=== PATIENT | female | born 1970 | race Caucasian/White ===

== ENCOUNTER 2017-07-09 18:57 | Emergency (ER) | payer SELFPAY ==
[2017-07-09 19:45] VITALS: BP 130/90; TEMP 97.8; O2SAT 100
--- NOTE | 2017-07-09 19:50 | ED.PDOC ---
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 Timing/Duration: other - see hpi Severity: moderate Improving Factors: nothing Worsening Factors: nothing Associated Symptoms: other - see hpi Allergies/Adverse Reactions: Allergies NO KNOWN ALLERGY Allergy (Verified 07/09/17 19:45) Review of Systems - Review of Systems Constitutional: States: no symptoms reported, malaise EENTM: States: no symptoms reported Respiratory: States: no symptoms reported Cardiology: States: no symptoms reported Gastrointestinal/Abdominal: States: no symptoms reported Genitourinary: States: no symptoms reported Musculoskeletal: States: joint pain Skin: States: no symptoms reported Endocrine: States: see HPI Past Medical History (General) - Patient Medical History Hx Other PMH: Yes - Guillain Vichy syndrome Surgical History: other - hysterectomy Family Medical History - Family History Mother Family History: Unknown Physical Exam - Physical Exam General Appearance: Alert, Other - crying Eye Exam: bilateral normal Ears, Nose, Throat: hearing grossly normal, normal ENT inspection Neck: non-tender, full range of motion, supple Respiratory: chest non-tender, lungs clear, normal breath sounds Cardiovascular/Chest: normal peripheral pulses, regular rate, rhythm, no murmur Peripheral Pulses: radial,right: 2+, radial,left: 2+ Gastrointestinal/Abdominal: normal bowel sounds, non tender, soft Back Exam: no CVA tenderness, no vertebral tenderness Extremity: no pedal edema, no calf tenderness Neurologic: motor weakness - left side Skin Exam: normal color, warm/dry Progress - Progress Progress: 07/09/17 20:15 Vital Signs - 8 hr 07/09/17 19:40 Temperature 97.8 F Pulse Rate [ 102 H Right] Respiratory 16 Rate Blood Pressure 130/90 [Left Arm] O2 Sat by Pulse 100 Oximetry 07/09/17 20:15 Nurse talk to daughter in law stated that her sons car broke down unable to bring her to [place] but daughter stated she contacted the rural transport that medicare pays to bring her to her pain specialist Md in [place] but she have not arrange it yet.I told patient that we could not refill prescription in the ER for her pain medication.Recommended [facility] evaluation for CRU in [place] but declined and walked out. Departure - Departure Clinical Impression: Family history of Guillain-Vichy syndrome, Chronic pain disorder, Has run out of medications Time of Disposition: 20:22 Disposition: Left Against Medical Advice Condition: Fair Departure Forms: ED Discharge - Pt. Copy, Patient Portal Self Enrollment Referrals: SHAY CHANEY [Primary Care Provider] - 1-2 Weeks
== END 2017-07-09 20:19 | disposition left against medical advice (07) ==
LOC: ER 18:57
DX: G89.4 Chronic pain syndrome (principal); Z79.899 Other long term (current) drug therapy

== ENCOUNTER 2018-03-25 21:21 | Inpatient (IN) | payer OTHER ==
--- NOTE | 2018-03-25 22:18 | ED.PDOC ---
History of Present Illness - General Chief Complaint: Skin/Abrasion/Tear Stated Complaint: bilateral foot ulcerations Time Seen by Provider: 03/25/18 22:08 Source: patient Exam Limitations: no limitations - History of Present Illness Initial Comments: Patient presents with ulcerations on the heels of both feet as well as swelling to the distal feet and great toes. She says that she has had "corns" there before and that she treated them but these ulcers have been growing for an unknown amount of time. She has Guillan-[place] syndrome but is still able to ambulate. In the last three days, her feet have become painful enough to prevent adequate ambulation. She denies fever. She has not sought medical attention for this. She denies history of diabetes mellitis. Timing/Duration: changing over time Severity: moderate Improving Factors: rest Worsening Factors: movement Associated Symptoms: denies symptoms Allergies/Adverse Reactions: Allergies NO KNOWN ALLERGY Allergy (Verified 07/09/17 19:45) Home Medications: Ambulatory Orders Gabapentin [Gabapentin] 1,200 mg PO TID 03/25/18 HYDROcodone 10MG/APAP 325MG [[place] 10/325] 0 ea PO .Q4H 03/25/18 Methadone HCl [Methadone HCl] 10 mg PO TID 03/25/18 tiZANidine [Zanaflex] 4 mg PO BEDTIME 03/25/18 Review of Systems - Review of Systems Constitutional: States: no symptoms reported EENTM: States: no symptoms reported Respiratory: States: no symptoms reported Cardiology: States: no symptoms reported Gastrointestinal/Abdominal: States: no symptoms reported Genitourinary: States: no symptoms reported Musculoskeletal: States: no symptoms reported Skin: States: see HPI Neurological: States: no symptoms reported Endocrine: States: no symptoms reported Hematologic/Lymphatic: States: no symptoms reported Past Medical History (General) - Patient Medical History Hx Thyroid Disease: Yes Hx Diabetes: No Surgical History: tonsillectomy - Vaccination History Hx Tetanus, Diphtheria Vaccination: No Hx Influenza Vaccination: No Hx Pneumococcal Vaccination: Yes - Social History Hx Alcohol Use: Yes - Female History Patient : No - Triage Comment ED Triage Comment: enlarged great toes, left larger than right. Open sores bilateral feet Family Medical History - Family History Mother Family History: Unknown Physical Exam - Physical Exam General Appearance: Alert Ears, Nose, Throat: normal ENT inspection Neck: non-tender, full range of motion, supple Respiratory: lungs clear, normal breath sounds Cardiovascular/Chest: normal peripheral pulses, regular rate, rhythm Gastrointestinal/Abdominal: normal bowel sounds, non tender, soft Extremity: normal range of motion, non-tender Neurologic: no motor/sensory deficits, alert, normal mood/affect, oriented x 3 Skin Exam: other - quarter size ulceratios on the distal medial plantar surface of each foot. The great toes of both feet are swollen. There is fungal infection surrounding the great toes and on the dorsal surface of each foot. She has no feeling in the toes and says that is her baseline because of her Guillan-[place] Syndrome. Lymphatic: no adenopathy Progress - Progress Progress: 03/25/18 23:53 Laboratory Tests 03/25/18 03/25/18 22:16 22:16 WBC 7.7 RBC 3.21 L Hgb 12.1 Hct 35.9 L MCV 111.7 H MCH 37.6 H MCHC 33.8 RDW 18.8 H Plt Count 150 MPV 8.8 Absolute Neuts (auto) 5.80 Absolute Lymphs (auto) 1.10 Absolute Monos (auto) 0.50 Absolute Eos (auto) 0.30 Absolute Basos (auto) 0.00 Neutrophils % 74.6 Lymphocytes % 14.4 L Monocytes % 6.7 Eosinophils % 3.7 Basophils % 0.6 Sodium 137 Potassium 2.9 L Chloride 98 L Carbon Dioxide 32 H Anion Gap 9.9 L BUN < 5 L Creatinine 0.64 BUN/Creatinine Ratio 7.8 L Random Glucose 114 H Serum Osmolality 271.6 L Calcium 7.9 L Total Bilirubin 0.8 AST 45 H ALT 19 Alkaline Phosphatase 239 H Serum Total Protein 6.0 L Albumin 2.2 L Globulin 3.8 H Albumin/Globulin Ratio 0.6 L wbc normal. The severity of the fungal infection and the bacterial superinfection is concerning enough to warrant admission for IV antibiotics and possibly IV antifungals. Patient admitted. E.R. warnings given. The patient voiced understanding and agreement with the plan. Departure - Departure Clinical Impression: Fungal infection of foot, Bacterial skin infection Disposition: Discharge to Home or Self Care Condition: Fair Departure Forms: ED Discharge - Pt. Copy, Patient Portal Self Enrollment Diet: other - as per hospitalist Activity: as per physical therapy Home Medications: Ambulatory Orders Gabapentin [Gabapentin] 1,200 mg PO TID 03/25/18 HYDROcodone 10MG/APAP 325MG [[place] 10] 0 ea PO .Q4H 03/25/18 Methadone HCl [Methadone HCl] 10 mg PO TID 03/25/18 tiZANidine [Zanaflex] 4 mg PO BEDTIME 03/25/18
[2018-03-25] MEDS ORDERED: POTASSIUM CHLORIDE 20 MEQ TAB PO ONE (23:12)
--- NOTE | 2018-03-26 00:47 | HP ---
SUPERVISING PHYSICIAN: Luis Sullivan M.D. CHIEF COMPLAINT: Bilateral foot pain. HISTORY OF PRESENT ILLNESS: Ms. Rosado is a 47 year-old female patient with a history of Guillain-Clarkia syndrome. She was diagnosed in 2012 and at that time she had some numbness to her lower extremities. She does admit that she sits at home and does not move around much. She sits in her chair with her feet lowered and watches television due to her difficulty in ambulating, but she has been able to ambulate. She said that she had some "corns" on her feet and approximately 4 months ago starting treating them with an [id number] corn and callus remedy. Approximately 2 weeks ago she said that got to where she could not ambulate and had these sores that appeared on her toes and soles of her feet. Her has difficulty helping her as he is blind in one eye. She had lab done in the Emergency Room. She was afebrile, heart rate was 108, blood pressure 119/78, respiratory rate 18, O2 sat was 100%. Lab was drawn and her WBCs were 7,700 with hemoglobin 12.1, hematocrit 35.9. There was no shift on her differential. Sodium 137, potassium 2.9, chloride 98, carbon dioxide 32 , anion gap 9.9, glucose 114. Serum osmolality was 271.6, calcium 7.9. AST 45 , alkaline phosphatase 239. C reactive protein was 4.2. ESR was 8. Urinalysis was basically within normal limits with the exception of her urine urobilinogen was greater than 8. The E. R. doctor felt that it was a fungal infection with an underlying bacterial infection. I saw the patient in the Emergency Room and discussed her case with Dr. Sullivan. She will be admitted to the hospital for cellulitis of her bilateral feet. PAST MEDICAL HISTORY: 1. Chronic neck pain. 2. Hypothyroidism. 3. Guillain-Clarkia syndrome diagnosed in 2012. 4. Chronic pain syndrome followed by Mateus Valenzuela, Pain Management physician in [place]. PAST SURGICAL HISTORY: 1. Neck surgery. 2. Tonsillectomy. OUTPATIENT MEDICATIONS: 1. Gabapentin. 2. Hydrocodone. 3. Methadone. 4. Zanaflex. ALLERGIES: NO KNOWN DRUG ALLERGIES. FAMILY HISTORY: Unknown. SOCIAL HISTORY: She is . She lives in [place]. She recently moved here approximately 2 years ago. She smokes 1 pack of cigarettes per day. She drinks alcohol on a daily basis. She does not know how much she drinks, but she generally drinks rum, Vodka or wine. She denies any illicit drug use. REVIEW OF SYSTEMS: GENERAL: Negative for fatigue, fever or weight changes. HEENT: Negative for sinus symptoms, ear pain, vision changes or sore throat. RESPIRATORY: Negative for coughing, wheezing or shortness of breath. CARDIAC: Negative chest pain, palpitations or tachycardia. GASTROINTESTINAL: Negative for nausea, vomiting, diarrhea or constipation. GENITOURINARY: Negative for hematuria, dysuria or polyuria. MUSCULOSKELETAL: As per history of present illness. SKIN: Positive for sores and ulcerations on her feet as well as multiple scratches on her bilateral arms and chest. NEUROLOGIC: Negative for seizures, headaches or dizziness. PHYSICAL EXAMINATION: VITAL SIGNS: Temperature 97.5, heart rate 101, blood pressure 95/60, respiratory rate 20, O2 sat 96% on room air. GENERAL: This is a 47 year-old female patient who looks older than her stated age. She is in no acute distress. HEENT: Normocephalic and atraumatic. Pupils are equal and reactive. NECK: Supple without mass. RESPIRATORY: Essentially clear to auscultation bilaterally. CHEST: There is equal rise and fall of the chest with inspiration and expiration. CARDIOVASCULAR: Regular rate and rhythm. GASTROINTESTINAL: Abdomen is soft, nondistended, non-tender. Bowel sounds are positive. EXTREMITIES: No cyanosis. Her bilateral pedal pulses are +1. NEUROLOGIC: She is awake, alert and oriented times three. SKIN: There is an ulceration on the distal medial plantar surface of each foot. On her right toe it is approximately quarter size. On the left toe it is linear. It is approximately 5 cm in length and approximately 1 to 2 cm in width. The toes are very edematous and erythematous. She has no feeling in her bilateral feet but that is her baseline due to her Guillain-Clarkia syndrome. LABORATORY: Morning labs showed WBC of 6.2 with hemoglobin 10.9 and hematocrit 32.3. Sodium 138, potassium 3.5, chloride 103, carbon dioxide 29, BUN less than 5, creatinine 0.48. Glucose 111. Uric acid was 5.4, calcium 7.5, magnesium 1.6. Alkaline phosphatase improved to 191. Wound culture is pending. Preliminary blood culture showed negative to date. FOOT X-RAYS THIS MORNING: Right foot shows marked soft tissue swelling of the first digit, poorly visualized irregularity of the first digit with irregularity of the distal aspect of the proximal phalanx. Osteomyelitis is not excluded. There is a plantar ulceration first digit. MRI may be obtained for further evaluation. Left foot x-ray improvement shows gout versus osteomyelitis. All other labs and films have been reviewed via the EMR. ASSESSMENT: 1. Cellulitis of bilateral feet. 2. History of Guillain-Clarkia syndrome. 3. Elevated liver function test. 4. Chronic pain syndrome followed by Pain Management, Dr. Valenzuela in [place]. 5. Tobacco abuse. 6. ETOH abuse. 7. Poor medical compliance. PLAN: We will admit the patient to the hospital. I will consult Dr. Bender and order an MRI of her bilateral feet today to rule out osteomyelitis. She has received magnesium replacement as well as potassium replacement today. I will contact Dr. Graves, Infectious Diseases physician in [place] tomorrow for her plan of care as well as guiding her antibiotic therapy. She is on vancomycin and Rocephin. Will also await her gram stain as well as her culture results. She will most likely need a PICC line at some point. I will also draw a thyroid panel with her lab in the morning. I have ordered Protonix for ulcer prophylaxis as well as Lovenox for DVT prophylaxis. Will continue to monitor closely and follow as needed. #[id number] [facility]
[2018-03-26] MEDS ORDERED: SODIUM CHL 0.9% 50ML MIN-BAG+ 50 ML IVPB ONE ×2 (01:08→19:30)
[2018-03-26] MEDS ORDERED: cefTRIAXone SODIUM 1 GM VIAL ONE ×2 (01:09→19:30)
[2018-03-26] MEDS ORDERED: GABAPENTIN 400 MG CAP ONE ×2 (01:09→09:05)
[2018-03-26] MEDS: GABAPENTIN 1200 MG PO SCH ×2 (01:16→09:18)
[2018-03-26] MEDS: PANTOPRAZOLE SODIUM IV 40 MG VIAL IV SCH (01:17)
[2018-03-26] MEDS: ENOXAPARIN SODIUM 40 MG/0.4 ML SYG SUBCU SCH (01:17)
[2018-03-26] MEDS: IV SET AND CAP CHANGE INJ INJ SCH (01:17)
[2018-03-26] MEDS: cefTRIAXone SODIUM 1 GM in SODIUM CHL 0.9% 50ML MIN-BAG+ 50 ML IVPB SCH (01:20)
[2018-03-26] MEDS ORDERED: SODIUM CHLORIDE 0.9% 250ML 250 ML ONE ×4 (01:32→19:31)
[2018-03-26] MEDS ORDERED: VANCOMYCIN HCL INJ 500 MG VIAL ONE (01:32)
[2018-03-26] MEDS ORDERED: VANCOMYCIN HCL INJ 1,000 MG VIAL IVPB ONE ×4 (01:33→19:31)
[2018-03-26] MEDS ORDERED: VANCOMYCIN HCL INJ 1,000 MG, VANCOMYCIN HCL INJ 250 MG in SODIUM CHLORIDE 0.9% 250ML 25... IVPB ONE (02:00)
--- NOTE | 2018-03-26 07:26 | RAD ---
2 VIEWS LEFT FOOT RADIOGRAPHIC SERIES. INDICATIONS: Cellulitis. Pain. COMPARISONS: No comparisons are available. FINDINGS: Severe soft tissue swelling in the left first digit with soft tissue calcification and bony destruction of the left first metatarsal phalangeal joint. Findings are suspicious for sequela of osteomyelitis versus gout. IMPRESSION: Gout versus osteomyelitis. Electronically signed by: Enmanuel Spear MD 03/26/2018 7:25 AM [facility]
--- NOTE | 2018-03-26 07:26 | RAD ---
EXAM DESCRIPTION: Foot,Right 2 Views CLINICAL HISTORY: 47 years Female, cellulitis COMPARISON: None. FINDINGS: Right foot 2 views Marked soft tissue swelling first digit. Poorly visualized irregularity of the first digit with irregularity of the distal aspect of the proximal phalanx. Osteomyelitis not excluded. Plantar ulceration first digit. MRI may be obtained for further evaluation. Diffuse prominent soft tissues. Electronically signed by: Abdoulaye El MD 03/26/2018 7:25 AM [facility]
[2018-03-26] MEDS ORDERED: VANCOMYCIN PER PHARMACY INJ SCH (08:00)
[2018-03-26] MEDS: METHADONE HCL 10 MG TAB PO SCH ×3 (09:17→20:46)
[2018-03-26] MEDS: SODIUM CHLORIDE 0.9% (FLUSH) 10 ML SYG IV SCH ×2 (09:18→20:46)
[2018-03-26] MEDS: HYDROcodone 10MG/APAP 325MG 1 EA TAB PO PRN ×2 (09:33→15:30)
[2018-03-26] MEDS: TERBINAFINE 1% TOP SCH ×2 (09:43→09:44)
[2018-03-26] MEDS ORDERED: MAGNESIUM SULFATE PREMIX 2GM 2 GM in PREMIX BAG 1 BAG IVPB ONE (10:00)
[2018-03-26] MEDS ORDERED: MAGNESIUM SULFATE PREMIX 2GM 50 ML IVPB ONE (10:29)
[2018-03-26] MEDS: SODIUM CHLORIDE 0.9% (FLUSH) 10 ML SYG IV PRN ×2 (10:33→14:04)
--- NOTE | 2018-03-26 13:23 | MRI ---
EXAM DESCRIPTION: MRI left foot CLINICAL HISTORY: Cellulitis. Pain with redness and swelling. Nonhealing wound. Abnormal radiograph COMPARISON: None. TECHNIQUE: Multiplanar, multisequence MR images of the left foot FINDINGS: Extensive soft tissue edema and swelling of the great toe. Irregularity of the skin and subcutaneous soft tissues related ulceration medially. Contiguous irregular fluid collection in the plantar soft tissues which extends up to and apparently joins the plantar joint capsule of the metatarsal phalangeal joint. Soft tissue abscess and contiguous septic arthritis. Septic arthritis with extensive osteomyelitis involving the entire proximal phalanx and majority of the first metatarsal sparing the proximal epiphysis. Dorsal dislocation of the proximal phalanx relative to the metatarsal head with erosive bone loss of the metatarsal head and plantar epiphysis of the proximal phalanx Small joint effusion interphalangeal joint of the great toe which may be septic arthritis. No osteomyelitis the distal phalanx No diagnostic osteomyelitis of the second third and fourth toes A couple small foci of edema in the fifth metatarsal phalangeal joint involving a small region of the fifth metatarsal head dorsally and the dorsal lateral proximal phalanx metaphysis. T1-weighted images show linear signal/trabecular condensation suggested these areas are related to incomplete stress/insufficiency fractures. There is also no diagnostic overlying soft tissue wound. Remote nonunited fracture of the plantar medial aspect of the proximal fourth metatarsal coronal T1 image 12, axial T1 image 37. Associated osseous edema. No adjacent soft tissue infection Periarticular osseous edema over small region of the plantar second tarsometatarsal joint likely chondrosis or possibly stress related edema IMPRESSION: Extensive osteomyelitis involving the entire proximal phalanx and majority of the first metatarsal of the great toe. Septic arthritis with dorsal dislocation of the proximal phalanx relative to the metatarsal head Diffuse cellulitis. Chronic ulceration and underlying soft tissue abscess along the plantar medial soft tissues beneath the metatarsal head and phalanx. This is contiguous with the joint Remote nonunited fracture of the proximal fourth metatarsal Small foci of edema and minimal trabecular condensation fifth metatarsal head and proximal phalanx of the little toe possibly stress/insufficiency fractures. Not typical to suggest infection Electronically signed by: Solomon Porras MD 03/26/2018 1:21 PM [facility]
--- NOTE | 2018-03-26 13:31 | MRI ---
EXAM DESCRIPTION: MRI right foot CLINICAL HISTORY: Abnormal radiograph. Cellulitis. Soft tissue ulceration. Assess for osteomyelitis COMPARISON: Radiograph same day TECHNIQUE: Multiplanar, multisequence MR images of the right foot FINDINGS: Large cutaneous and subcutaneous soft tissue ulceration plantar soft tissues beneath the interphalangeal joint/proximal phalanx of the great toe. Diffuse cellulitis. No abscess. Soft tissue wound contiguous with the plantar metatarsal head. Dorsal dislocation of the distal phalanx relative to the proximal phalanx. Small joint effusion. Osseous edema throughout the proximal phalanx with erosive irregularity of the distal epiphysis and both T1 and T2 signal abnormality. Edema extends proximally sparing a small portion of the epiphysis on STIR images. Small region of edema in the distal phalanx proximal epiphysis. Chronic osteochondral lesion of the plantar metatarsal head of the great toe. Small joint effusion. No suspicion of MTP joint septic arthritis or osteomyelitis metatarsal No abnormality of the second through fifth toes. No abnormality of the midfoot No septic tenosynovitis IMPRESSION: Large ulceration along the plantar soft tissues of the great toe, apparently contiguous with the joint and septic arthritis of the interphalangeal joint. Underlying osteomyelitis of the proximal phalanx distally. Mild edema in the distal phalanx and edema in the proximal aspect of the proximal phalanx may be reactive Electronically signed by: Solomon Porras MD 03/26/2018 1:30 PM [facility]
[2018-03-26] MEDS: VANCOMYCIN HCL INJ 1,000 MG in SODIUM CHLORIDE 0.9% 250ML 250 ML IVPB SCH ×2 (14:03→21:52)
[2018-03-26] MEDS: GABAPENTIN 400 MG CAP PO SCH ×2 (15:31→20:46)
[2018-03-26] MEDS ORDERED: POTASSIUM CHLORIDE 20 MEQ TAB PO ONE (19:33)
[2018-03-26] MEDS: tiZANidine 4 MG TAB PO SCH (20:46)
[2018-03-26] MEDS ORDERED: SODIUM CHLORIDE 0.9% 500ML 500 ML ONE (23:05)
[2018-03-26] MEDS ORDERED: SODIUM CHLORIDE 0.9% 500ML 500 ML IVS ONE (23:07)
[2018-03-27] MEDS: PANTOPRAZOLE SODIUM IV 40 MG VIAL IV SCH (01:50)
[2018-03-27] MEDS: cefTRIAXone SODIUM 1 GM in SODIUM CHL 0.9% 50ML MIN-BAG+ 50 ML IVPB SCH (01:50)
[2018-03-27] MEDS: ENOXAPARIN SODIUM 40 MG/0.4 ML SYG SUBCU SCH (01:51)
[2018-03-27] MEDS: VANCOMYCIN HCL INJ 1,000 MG in SODIUM CHLORIDE 0.9% 250ML 250 ML IVPB SCH ×2 (06:02→14:37)
[2018-03-27] MEDS: HYDROcodone 10MG/APAP 325MG 1 EA TAB PO PRN ×2 (09:28→15:50)
[2018-03-27] MEDS: GABAPENTIN 400 MG CAP PO SCH ×3 (09:28→20:27)
[2018-03-27] MEDS: METHADONE HCL 10 MG TAB PO SCH ×3 (09:30→20:26)
[2018-03-27] MEDS: SODIUM CHLORIDE 0.9% (FLUSH) 10 ML SYG IV SCH ×2 (09:30→20:26)
--- NOTE | 2018-03-27 10:18 | CONS ---
DATE OF CONSULTATION: 03/26/18 HISTORY OF PRESENT ILLNESS: The patient is a 47-year-old female who was admitted through the Emergency Room with an infectious process involving both of her feet, specifically her great toes. The patient states that she began treating corns on her feet and callouses with an [id number] salicylic acid product. Roughly two weeks ago, they became painful and she had trouble ambulating. She denies specific injury or penetrating injury to the feet. She does have a history of Guillain-[place]. She has decreased sensation to both legs and has trouble with ambulating, etc. The patient states that her daily activity consists of sitting on her bedside. PAST MEDICAL HISTORY: 1. Chronic neck pain. 2. Hypothyroidism. 3. Guillain-[place]. PAST SURGICAL HISTORY: 1. Neck surgery. 2. Tonsillectomy. She does see a pain management physician. CURRENT MEDICATIONS: 1. Hydrocodone. 2. Methadone. 3. Zanaflex. 4. Gabapentin. ALLERGIES: NO KNOWN DRUG ALLERGIES. FAMILY HISTORY: Not known. SOCIAL HISTORY: The patient is and lives in [place]. She smokes at least a pack a day. She drinks alcohol on a daily basis. She denies using illicit drugs. REVIEW OF SYSTEMS: She denied chest pain, shortness of breath, nausea, vomiting , change in her bowel habits. PHYSICAL EXAMINATION: GENERAL: The patient is awake, alert, cooperative, in mild to moderate distress. VITAL SIGNS: The patient is currently afebrile, normotensive. HEENT: Sclerae nonicteric. NECK: Without adenopathy. CHEST: Equal breath sounds bilaterally. HEART: Regular rate and rhythm. ABDOMEN: Benign. EXTREMITIES: Bilateral lower extremities reveal swelling of the great toes with some erythema and open wounds. MRIs of both feet revealed osteomyelitis involving the great toe phalange and possibly the proximal metatarsal on the right. LABORATORY: White count 5,000 this morning. It was 7,700 on admission to the Emergency Room. Hemoglobin 12, which is stable. Differential is within normal limits. ESR was 8 yesterday. Potassium 3.8, creatinine 0.47. Liver functions are within normal limits other than alkaline phosphatase is mildly elevated. C- reactive protein 4.2. TSH greater than 50. Cultures are consistent with Staph with identification pending. ASSESSMENT: 1. Cellulitis of bilateral feet with osteomyelitis of both treat toes. 2. Tobacco abuse. 3. Possible alcohol abuse. 4. Hypothyroidism. PLAN: Long-term antibiotic therapy directed by Dr. Graves with consideration at some point that she will likely at least require amputation of one or both of her great toes at a minimum. She will need 2 months of antibiotics, so we will attempt to find a placement as she is not taking care of herself at home. #[id number] [facility]
[2018-03-27] MEDS ORDERED: CEFEPIME 2 GM VIAL ONE ×2 (10:20→19:17)
[2018-03-27] MEDS ORDERED: SODIUM CHL 0.9% 50ML MIN-BAG+ 50 ML IVPB ONE ×2 (10:20→19:16)
[2018-03-27] MEDS: CEFEPIME 2 GM in SODIUM CHL 0.9% 50ML MIN-BAG+ 50 ML IVPB SCH ×2 (10:26→21:00)
[2018-03-27] MEDS: LEVOTHYROXINE SODIUM 0.1 MG TAB PO SCH (12:11)
[2018-03-27] MEDS ORDERED: POTASSIUM CHLORIDE 20 MEQ TAB PO ONE (16:32)
[2018-03-27] MEDS: diphenhydrAMINE HCL 50 MG/ML VIAL IV PRN (17:39)
[2018-03-27] MEDS: SODIUM CHLORIDE 0.9% (FLUSH) 10 ML SYG IV PRN (17:39)
[2018-03-27] MEDS: tiZANidine 4 MG TAB PO SCH (20:26)
--- NOTE | 2018-03-28 00:21 | PN ---
DATE: 03/27/18 SUPERVISING PHYSICIAN: Luis Sullivan M.D. SUBJECTIVE: The patient is lying in bed. She has no complaints of nausea, vomiting, shortness of breath or chest pain. She is very anxious. We discussed her treatment plans and that includes going to a intermediate or a rehabilitation facility in [place]. She is quite concerned because her electricity has been cut off. She is very anxious and tearful, but otherwise she denies any pain in her feet. She understands the treatment plan. OBJECTIVE: VITAL SIGNS: She is afebrile, heart rate 98, blood pressure 117/82, respiratory rate 18, O2 sat is 95% on room air. RESPIRATORY: Somewhat diminished at the bases but clear to auscultation bilaterally. CARDIAC: Regular rate and rhythm. GASTROINTESTINAL: Abdomen is soft, nondistended. Bowel sounds are positive. EXTREMITIES: There is minimal change to her feet from yesterday. They are still quite edematous and erythematous. No drainage is noted to the wounds on her toes. NEUROLOGIC: She is awake, alert and oriented times three. She is very tearful and anxious. LABORATORY: WBCs are 5 with hemoglobin 12, hematocrit 36.3. Sodium 135, potassium 3.4, chloride 103, carbon dioxide 27, BUN less than 5, creatinine 0.47 , glucose 67, calcium 7.3, magnesium 2. Alkaline phosphatase 195. Serum total protein 5.4. TSH is greater than 50.2. Preliminary wound culture shows presumptive Staphylococcus aureus. Preliminary blood cultures show no growth after 24 hours. MRI of her right foot shows large ulceration along the plantar soft tissue of the great toe apparently contiguous with the joint and septic arthritis of the interphalangeal joint. Underlying osteomyelitis of the proximal phalanx distally. Mild edema in the distal phalanx and edema in the proximal aspect of the proximal phalanx may be reactive. Her left foot MRI shows extensive osteomyelitis involving the entire proximal phalanx and the majority of the first metatarsal of the great toe. Septic arthritis with dorsal dislocation of the proximal phalanx relative to the metatarsal head. Diffuse cellulitis. Chronic ulceration and underlying soft tissue abscess along the plantar medial soft tissue beneath the metatarsal head and phalanx. This is contiguous with the joint. Remote nonunited fracture of the proximal fourth metatarsal. Small foci of edema and minimal trabecular condensation fifth metatarsal head and proximal phalanx of the left little toe possibly stress/insufficiency fractures not typical to suggest infection. All other labs and films have been reviewed via the EMR. ASSESSMENT: 1. 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 2. History of Guillain-[place] syndrome. 3. Elevated liver function test. 4. Chronic pain syndrome followed by Pain Management, Dr. Valenzuela in [facility]. 5. Tobacco abuse. 6. ETOH abuse. 7. Poor medical compliance. 8. Hypothyroidism with a TSH of greater than 50. PLAN: We will continue present supportive care. I spoke with Dr. Graves, Infectious Diseases physician in [place]. She suggested that she continue on the vancomycin and change her Rocephin to Cefepime. She will need a PICC line and she can continue treatment for 2 months. She has been given options as to her treatment after discharge. Her discharge plan includes either going to [facility] facility in [place] or to one of the nursing homes here in [place] for her IV antibiotic treatment. At this point the patient is very anxious and she is quite concerned that she has no electricity in her house and her is an alcoholic and is unable to take care of himself. She is also concerned about her pain management appointment next week. I have offered to call his office and give him an update on the situation. I encouraged her to continue to elevate her feet. Will monitor her cultures as they become available. All of her paperwork has been sent in for her discharge to a different facility for IV antibiotic treatment. She has received potassium supplementation today. I have also given her some Synthroid. I started her on Synthroid due to her elevated TSH. Will continue to monitor and followup as needed. I expect that she will be here for several more days until we secure a discharge plan. Dr. Sullivan is the collaborating physician available for consultation. #[id number] [facility]
[2018-03-28] MEDS: PANTOPRAZOLE SODIUM IV 40 MG VIAL IV SCH (01:54)
[2018-03-28] MEDS: ENOXAPARIN SODIUM 40 MG/0.4 ML SYG SUBCU SCH (01:54)
[2018-03-28] MEDS: LEVOTHYROXINE SODIUM 0.1 MG TAB PO SCH (06:08)
[2018-03-28] MEDS ORDERED: SODIUM CHL 0.9% 50ML MIN-BAG+ 50 ML IVPB ONE ×2 (07:20→19:21)
[2018-03-28] MEDS ORDERED: CEFEPIME 2 GM VIAL ONE ×2 (07:21→19:22)
[2018-03-28] MEDS: METHADONE HCL 10 MG TAB PO SCH ×3 (08:48→21:41)
[2018-03-28] MEDS: GABAPENTIN 400 MG CAP PO SCH ×3 (08:49→21:41)
[2018-03-28] MEDS: HYDROcodone 10MG/APAP 325MG 1 EA TAB PO PRN ×2 (08:51→15:37)
[2018-03-28] MEDS: CEFEPIME 2 GM in SODIUM CHL 0.9% 50ML MIN-BAG+ 50 ML IVPB SCH ×2 (08:53→21:42)
[2018-03-28] MEDS: SODIUM CHLORIDE 0.9% (FLUSH) 10 ML SYG IV SCH ×2 (09:21→21:42)
[2018-03-28] MEDS ORDERED: VANCOMYCIN HCL INJ 1,000 MG VIAL IVPB ONE (12:06)
[2018-03-28] MEDS ORDERED: SODIUM CHLORIDE 0.9% 250ML 250 ML ONE (12:06)
[2018-03-28] MEDS: VANCOMYCIN HCL INJ 1,000 MG in SODIUM CHLORIDE 0.9% 250ML 250 ML IVPB SCH (12:14)
[2018-03-28] MEDS: SODIUM CHLORIDE 0.9% (FLUSH) 10 ML SYG IV PRN (12:15)
[2018-03-28] MEDS: diphenhydrAMINE HCL 50 MG/ML VIAL IV PRN (13:08)
--- NOTE | 2018-03-28 13:33 | PN ---
SUPERVISING PHYSICIAN: Luis Sullivan MD DATE: 03/28/18 SUBJECTIVE: The patient is sitting up in her bed. She just came back from the shower room. She feels better today. She feels like her feet are less swollen. She is still quite concerned about her living situation as well as her electricity being off at her house, but she understands she has to go to get her antibiotic therapy. She denies chest pain, shortness of breath, nausea , vomiting, diarrhea or constipation. OBJECTIVE: VITAL SIGNS: Temperature 98.3. Pulse 93. Blood pressure 104/74. Respiratory rate 18. O2 saturation 100% on room air. RESPIRATORY: Essentially clear to auscultation bilaterally. CARDIAC: Regular rate and rhythm. GASTROINTESTINAL: Abdomen is soft, nondistended, nontender. Bowel sounds are positive. EXTREMITIES: Bilateral pedal pulses are +1. Her feet are less erythematous and the swelling is much improved on the right foot. Her left great toe is still quite swollen, but the swelling does seem to be down somewhat from yesterday. There is no drainage from the ulcerations on the bottom of her toes. NEUROLOGIC: Awake, alert and oriented times three. LABORATORY: WBCs 4.7, hemoglobin 11.7, hematocrit 34.3. Electrolytes are basically within normal limits except calcium is low at 7.5. Liver enzymes show an AST of 368, ALT 74, alkaline phosphatase 295, serum total protein is low at 5.1 with bilirubin 1.6. Preliminary blood cultures show no growth after 48 hours. We are still awaiting her wound culture. All other labs and films have been reviewed via the EMR. ASSESSMENT: 1. 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 2. History of Guillain-[place] syndrome. 3. Elevated liver function test, slightly worsened. 4. Chronic pain syndrome followed by Pain Management, Dr. Valenzuela in [facility]. 5. Tobacco abuse. 6. ETOH abuse. 7. Poor medical compliance. 8. Hypothyroidism with a TSH of greater than 50. PLAN: We will continue present supportive care. We are still awaiting word from [facility] for her discharge IV therapy. I will hold on labs for tomorrow, but we will continue to monitor her cultures. I spoke with Dr. Major Valenzuela in [place], the patient's pain management doctor, so he is aware of the patient's situation and that she most likely will not be at her appointment next week. We verified her pain medications and she is taking them as prescribed. Her liver function tests have worsened today and at some point, she will need to see a liver specialist and maybe she can do that when she is in rehab in [place]. She is a fairly heavy drinker and that may be contributing to some of her elevated liver function tests. Physical therapy is evaluating her for [facility]. We will continue to monitor the patient closely and follow as needed. Dr. Sullivan is the collaborating physician and available for consultation. #[id number] [facility]
[2018-03-28] MEDS: HYDROCORTISONE 1% CREAM 30 GM TUBE TOP PRN (18:39)
[2018-03-28] MEDS: tiZANidine 4 MG TAB PO SCH (21:41)
[2018-03-29] MEDS: ENOXAPARIN SODIUM 40 MG/0.4 ML SYG SUBCU SCH (01:03)
[2018-03-29] MEDS: PANTOPRAZOLE SODIUM IV 40 MG VIAL IV SCH (01:03)
[2018-03-29] MEDS: IV SET AND CAP CHANGE INJ INJ SCH (05:22)
[2018-03-29] MEDS: LEVOTHYROXINE SODIUM 0.1 MG TAB PO SCH (05:41)
[2018-03-29] MEDS: HYDROCORTISONE 1% CREAM 30 GM TUBE TOP PRN (05:44)
[2018-03-29] MEDS ORDERED: SODIUM CHL 0.9% 50ML MIN-BAG+ 50 ML IVPB ONE ×2 (07:14→19:44)
[2018-03-29] MEDS ORDERED: CEFEPIME 2 GM VIAL ONE ×2 (07:14→19:44)
[2018-03-29] MEDS: CEFEPIME 2 GM in SODIUM CHL 0.9% 50ML MIN-BAG+ 50 ML IVPB SCH ×2 (09:07→21:08)
[2018-03-29] MEDS: GABAPENTIN 400 MG CAP PO SCH ×3 (09:07→21:07)
[2018-03-29] MEDS: METHADONE HCL 10 MG TAB PO SCH ×3 (09:07→21:08)
[2018-03-29] MEDS: HYDROcodone 10MG/APAP 325MG 1 EA TAB PO PRN ×2 (09:13→15:21)
[2018-03-29] MEDS: SODIUM CHLORIDE 0.9% (FLUSH) 10 ML SYG IV SCH ×2 (09:19→21:25)
[2018-03-29] MEDS ORDERED: VANCOMYCIN HCL INJ 1,000 MG VIAL IVPB ONE (11:19)
[2018-03-29] MEDS ORDERED: SODIUM CHLORIDE 0.9% 250ML 250 ML ONE (11:19)
--- NOTE | 2018-03-29 11:27 | PN ---
SUPERVISING PHYSICIAN: Luis Sullivan MD DATE: 03/29/18 SUBJECTIVE: The patient is lying in her hospital bed. She is in no acute distress. Her is at the bedside. Angie Marquez, our Radiology Nurse, and I discussed at length her discharge plan. The patient is quite concerned that she gets paid on 04/01/18 and she cannot allow her to have any of the money because he is an alcoholic. We will plan for discharge to [facility] on early Sunday morning so the patient can take care of her pets, bills and several other personal items on Sunday and she will go to [facility] Sunday afternoon. She is feeling much better. She has no shortness of breath , nausea, vomiting, diarrhea. She still cannot feel much in her feet, but that is her baseline. She is generally feeling better. She denies chest pain or shortness of breath. OBJECTIVE: VITAL SIGNS: Temperature 98.6. Pulse 101. Blood pressure 96/66. Respiratory rate 18. O2 saturation 99% on room air. RESPIRATORY: Essentially clear to auscultation bilaterally. CARDIAC: Regular rate and rhythm. At times, she is slightly tachycardic. GASTROINTESTINAL: Abdomen is soft, nondistended, nontender. Bowel sounds are positive. EXTREMITIES: Bilateral feet continue to improve. They are much less edematous than yesterday as well as less erythematous. Her left great toe still is quite large and the ulcerations to the bottom of the feet are improved, but are scabbed over at this time. There is no drainage noted. Pedal pulses are palpable at +1 to +2 bilaterally. NEUROLOGIC: Awake, alert and oriented times three. LABORATORY: WBCs 4.8, hemoglobin 12, hematocrit 36.1. There is no left shift on differential. Electrolytes are within normal limits with the exception of her calcium is slightly low at 7.8. Total bilirubin 0.9, AST improved to 219, ALT 69, alkaline phosphatase 309, serum total protein 5.2, albumin 1.9. Wound culture is complete and is Staphylococcus aureus. It is sensitive to vancomycin which she is presently on. Only resistance is to clindamycin and penicillin. All other labs and films have been reviewed via the EMR. ASSESSMENT: 1. 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 2. History of Guillain-[place] syndrome. 3. Elevated liver function test, slightly worsened. 4. Chronic pain syndrome followed by Pain Management, Dr. Valenzuela in [place]. 5. Tobacco abuse. 6. ETOH abuse. 7. Poor medical compliance. 8. Hypothyroidism with a TSH of greater than 50 on admission. She is now being treated with Synthroid. PLAN: We will continue present supportive care. Angie Marquez, Radiology Nurse, has given the patient the [place] telephone number so her can go back and forth to see her while she is at [facility]. We will plan to discharge her early Sunday so she can get her check and take care of things at homes plus bills. She has agreed to be at [facility] sometime Sunday afternoon. She will need to continue her vancomycin and cefepime for 2 total months of therapy. Otherwise, we will continue to monitor the patient closely and follow as needed. Dr. Sullivan is the collaborating physician and available for consultation. [facility][id number] [facility]
[2018-03-29] MEDS: VANCOMYCIN HCL INJ 1,000 MG in SODIUM CHLORIDE 0.9% 250ML 250 ML IVPB SCH (11:47)
[2018-03-29] MEDS: tiZANidine 4 MG TAB PO SCH (21:08)
[2018-03-30] MEDS: PANTOPRAZOLE SODIUM IV 40 MG VIAL IV SCH (01:09)
[2018-03-30] MEDS: ENOXAPARIN SODIUM 40 MG/0.4 ML SYG SUBCU SCH (01:09)
[2018-03-30] MEDS: LEVOTHYROXINE SODIUM 0.1 MG TAB PO SCH (06:09)
[2018-03-30] MEDS ORDERED: SODIUM CHL 0.9% 50ML MIN-BAG+ 50 ML IVPB ONE ×2 (08:55→20:32)
[2018-03-30] MEDS ORDERED: CEFEPIME 2 GM VIAL ONE ×2 (08:56→20:32)
[2018-03-30] MEDS: GABAPENTIN 400 MG CAP PO SCH ×3 (09:42→21:31)
[2018-03-30] MEDS: METHADONE HCL 10 MG TAB PO SCH ×3 (09:42→21:31)
[2018-03-30] MEDS: SODIUM CHLORIDE 0.9% (FLUSH) 10 ML SYG IV SCH ×2 (09:43→21:31)
[2018-03-30] MEDS: CEFEPIME 2 GM in SODIUM CHL 0.9% 50ML MIN-BAG+ 50 ML IVPB SCH ×2 (09:43→21:31)
[2018-03-30] MEDS: HYDROcodone 10MG/APAP 325MG 1 EA TAB PO PRN ×3 (10:08→21:58)
[2018-03-30] MEDS ORDERED: SODIUM CHLORIDE 0.9% 250ML 250 ML ONE (12:50)
[2018-03-30] MEDS ORDERED: VANCOMYCIN HCL INJ 1,000 MG VIAL IVPB ONE (12:50)
[2018-03-30] MEDS: VANCOMYCIN HCL INJ 1,000 MG in SODIUM CHLORIDE 0.9% 250ML 250 ML IVPB SCH (13:09)
[2018-03-30] MEDS: diphenhydrAMINE HCL 50 MG/ML VIAL IV PRN (18:27)
--- NOTE | 2018-03-30 20:52 | PN ---
DATE: 03/30/18 SUPERVISING PHYSICIAN: Luis Sullivan M.D. SUBJECTIVE: The patient is resting in bed. She appears to be in no acute distress. I discussed at length again transfer to [facility] on Sunday as she reassures me that she will go there after she is discharged. She had some questions regarding the reason for being at [facility] and I was able to answer them. She had not been having any fevers. Blood cultures remain negative at this point. She has had no shortness of breath or chest pains.. OBJECTIVE: VITAL SIGNS: Temperature 98, pulse 73, blood pressure 93/60, respirations 98 on room air. Weight is 57.9 kg. GENERAL: The patient is resting comfortably in bed. She does appear very unkempt. She is alert and in no distress. CHEST: Lung sounds are clear to auscultation. HEART: Regular rate and rhythm. ABDOMEN: Soft, non-tender. Positive bowel sounds. EXTREMITIES: Bilateral feet show edematous and compared to previous photos to be improving with less erythema. Left great toe continues to be very swollen and ulcerations noted to both plantar aspect of both feet but improving with scabs at this time. No obvious drainage is noted. Pedal pulses were palpable at 1+ bilaterally. She continues to have multiple areas to upper extremities as well with scabbing from what she considers flea bites and she has been scratching. LABORATORY: Laboratory has been stable. No repeated laboratory today. In regards to the CBC, she has had her last vancomycin trough was 11.2 and that was on 03/29/18. ASSESSMENT: 1. Osteomyelitis of the bilateral lower extremities with questionable septic arthritis to the bilateral great toes with diabetic ulcers to plantar aspect of both feet. 2. History of Guillain-[place] syndrome with no complications. 3. Elevated liver function test. Continue to monitor. 4. Chronic pain syndrome followed by Pain Management, Dr. Valenzuela in [place]. 5. Chronic tobacco abuse. Encouraged to stop smoking. 6. Chronic alcohol abuse. Again continue to discuss stopping drinking. 7. Poor medical compliance with diabetic treatment. 8. Hypothyroidism with a TSH elevated on admission having been started on supplementation. PLAN: Will continue with antibiotic therapy at this point with Cefepime and vancomycin per Dr. Graves's suggestions. She will need continued therapy, antibiotic ibarra, for at least 2 months and close followup with Dr. Graves. She has been accepted to [facility] with anticipation of transferring Sunday after she can take care of some personal business prior to going Sunday. Until she is able to transfer, will continue to monitor and treat as needed. #[id number] [facility]
[2018-03-30] MEDS: tiZANidine 4 MG TAB PO SCH (21:31)
[2018-03-31] MEDS: ENOXAPARIN SODIUM 40 MG/0.4 ML SYG SUBCU SCH (02:10)
[2018-03-31] MEDS: PANTOPRAZOLE SODIUM IV 40 MG VIAL IV SCH (02:10)
[2018-03-31] MEDS: HYDROCORTISONE 1% CREAM 30 GM TUBE TOP PRN (04:30)
[2018-03-31] MEDS: diphenhydrAMINE HCL 50 MG/ML VIAL IV PRN (05:07)
[2018-03-31] MEDS: LEVOTHYROXINE SODIUM 0.1 MG TAB PO SCH (06:35)
[2018-03-31] MEDS ORDERED: SODIUM CHL 0.9% 50ML MIN-BAG+ 50 ML IVPB ONE ×2 (07:29→19:56)
[2018-03-31] MEDS ORDERED: CEFEPIME 2 GM VIAL ONE ×2 (07:30→19:57)
[2018-03-31] MEDS: GABAPENTIN 400 MG CAP PO SCH ×3 (08:57→21:24)
[2018-03-31] MEDS: METHADONE HCL 10 MG TAB PO SCH ×3 (09:01→21:19)
[2018-03-31] MEDS: SODIUM CHLORIDE 0.9% (FLUSH) 10 ML SYG IV SCH ×2 (09:02→21:25)
[2018-03-31] MEDS: CEFEPIME 2 GM in SODIUM CHL 0.9% 50ML MIN-BAG+ 50 ML IVPB SCH ×2 (09:04→21:23)
[2018-03-31] MEDS ORDERED: SODIUM CHLORIDE 0.9% 250ML 250 ML ONE (11:40)
[2018-03-31] MEDS ORDERED: VANCOMYCIN HCL INJ 1,000 MG VIAL IVPB ONE (11:40)
[2018-03-31] MEDS ORDERED: diphenhydrAMINE 30 GM TUBE TOP PRN (11:47)
[2018-03-31] MEDS ORDERED: CETIRIZINE HCL 10 MG TAB PO ONE (11:53)
[2018-03-31] MEDS ORDERED: hydrOXYzine HCl 10 MG TAB PO ONE (12:00)
[2018-03-31] MEDS: HYDROcodone 10MG/APAP 325MG 1 EA TAB PO PRN ×3 (12:04→21:27)
[2018-03-31] MEDS: CETIRIZINE HCL 10 MG TAB PO SCH (12:04)
[2018-03-31] MEDS: VANCOMYCIN HCL INJ 1,000 MG in SODIUM CHLORIDE 0.9% 250ML 250 ML IVPB SCH (12:05)
[2018-03-31] MEDS: hydrOXYzine HCl 25 MG TAB PO PRN ×2 (12:09→21:00)
[2018-03-31] MEDS: diphenhydrAMINE HCL 25 MG CAP PO PRN ×2 (15:37→20:30)
--- NOTE | 2018-03-31 16:52 | PN ---
DATE: 03/31/18 SUPERVISING PHYSICIAN: Luis Sullivan M.D. SUBJECTIVE: The patient is continuing to show improvement with antibiotics. She does have continued problems with pruritus and urticaria, and is getting minimum response from Benadryl and Hydrocortisone. Discussed at length changing as needed to Atarax to be more aggressive in the treatment to prevent secondary infections from scratching as well as trying some topical Benadryl and Zyrtec daily. She has been afebrile. OBJECTIVE: VITAL SIGNS: Temperature 98, pulse 73, blood pressure 149/66, respirations 18, satting 98% on room air. I's and O's are showing to be fairly well balance with a weight of 67.0 kg. CHEST: Lungs are clear to auscultation. HEART: Regular rate and rhythm. ABDOMEN: Soft, non-tender. Positive bowel sounds. EXTREMITIES: Bilateral extremities continue with ulcerations and swelling with the ulceration noted to the plantar aspect of the foot, but showing improving compared to admission. There is no drainage noted. Pulses remain 1+ bilaterally. She does continue to have multiple areas on her upper extremities with scabbing from what she considers flea bites and she has been scratching. LABORATORY: No additional laboratory studies today. ASSESSMENT: 1. Osteomyelitis of the bilateral lower extremities with questionable septic arthritis to the bilateral great toes with diabetic ulcers to plantar aspect of both feet. 2. History of Guillain-[place] syndrome with no complications. 3. Elevated liver function test. Continue to monitor. 4. Chronic pain syndrome followed by Pain Management, Dr. Valenzuela in [place]. 5. Chronic tobacco abuse. Encouraged to stop smoking. 6. Chronic alcohol abuse. Again continue to discuss stopping drinking. 7. Poor medical compliance with diabetic treatment. 8. Hypothyroidism with a TSH elevated on admission having been started on supplementation. PLAN: Will continue antibiotic therapy with Cefepime and vancomycin per Dr. Graves's suggestions. In regards to her pruritus/urticaria, will try some Atarax as needed and change her Benadryl from IV to p.o. form as well as try some topical Benadryl cream and some Zyrtec. The goal is to prevent any secondary infections. Again, we anticipate discharging Sunday to transfer to [facility] facility. The biggest delay is the patient has no means to take care of business until [place] morning and she is expecting a check that she is to handle Sunday before she can go to [facility] because her is unable to follow through with this. Until she transfers, will continue with treatment and continue to monitor as needed. [facility][id number] [facility]
[2018-03-31] MEDS ORDERED: hydrOXYzine HCl 10 MG TAB ONE (19:56)
[2018-03-31] MEDS: tiZANidine 4 MG TAB PO SCH (21:24)
[2018-04-01] MEDS: IV SET AND CAP CHANGE INJ INJ SCH (02:00)
[2018-04-01] MEDS: diphenhydrAMINE HCL 25 MG CAP PO PRN (02:00)
[2018-04-01] MEDS: SODIUM CHLORIDE 0.9% (FLUSH) 10 ML SYG IV PRN (02:00)
[2018-04-01] MEDS: ENOXAPARIN SODIUM 40 MG/0.4 ML SYG SUBCU SCH (02:00)
[2018-04-01] MEDS: PANTOPRAZOLE SODIUM IV 40 MG VIAL IV SCH (02:00)
[2018-04-01] MEDS: HYDROcodone 10MG/APAP 325MG 1 EA TAB PO PRN ×3 (02:06→15:52)
[2018-04-01] MEDS: LEVOTHYROXINE SODIUM 0.1 MG TAB PO SCH (06:13)
[2018-04-01] MEDS ORDERED: SODIUM CHL 0.9% 50ML MIN-BAG+ 50 ML IVPB ONE ×2 (07:55→16:59)
[2018-04-01] MEDS ORDERED: CEFEPIME 2 GM VIAL ONE ×2 (07:55→16:59)
[2018-04-01] MEDS: CETIRIZINE HCL 10 MG TAB PO SCH (09:16)
[2018-04-01] MEDS: METHADONE HCL 10 MG TAB PO SCH ×2 (09:16→15:53)
[2018-04-01] MEDS: SODIUM CHLORIDE 0.9% (FLUSH) 10 ML SYG IV SCH (09:19)
[2018-04-01] MEDS: GABAPENTIN 400 MG CAP PO SCH ×2 (09:19→15:52)
[2018-04-01] MEDS: CEFEPIME 2 GM in SODIUM CHL 0.9% 50ML MIN-BAG+ 50 ML IVPB SCH (09:20)
[2018-04-01] MEDS ORDERED: VANCOMYCIN HCL INJ 1,000 MG VIAL IVPB ONE (11:59)
[2018-04-01] MEDS ORDERED: SODIUM CHLORIDE 0.9% 250ML 250 ML ONE (11:59)
[2018-04-01] MEDS: VANCOMYCIN HCL INJ 1,000 MG in SODIUM CHLORIDE 0.9% 250ML 250 ML IVPB SCH (12:09)
[2018-04-01 14:26] VITALS: O2SAT 98
[2018-04-01] MEDS ORDERED: CEFEPIME 2 GM in SODIUM CHL 0.9% 50ML MIN-BAG+ 50 ML IVPB ONE (17:00)
[2018-04-01 18:10] VITALS: BP 124/76; TEMP 98.2
--- NOTE | 2018-04-04 10:48 | DS ---
SUPERVISING PHYSICIAN: Solomon James MD ADMISSION DIAGNOSIS: 1. Cellulitis of bilateral feet. 2. History of Guillain-[place] syndrome. 3. Elevated liver function test. 4. Chronic pain syndrome followed by Pain Management, Dr. Valenzuela in [place]. 5. Tobacco abuse. 6. ETOH abuse. 7. Poor medical compliance. DISCHARGE DIAGNOSIS: 1. Osteomyelitis of the bilateral lower extremities including bilateral great toes with diabetic ulcers to plantar aspects of both feet, requiring aggressive management with parenteral antibiotics to include vancomycin and cefepime. Wound cultures of the feet showed methicillin-sensitive Staphylococcus aureus. 2. History of Guillain-[place] syndrome with no noted complications. 3. Elevated liver function tests, likely related to chronic alcohol consumption. 4. Chronic pain syndrome, followed by Pain Management, Dr. Nicolas Brink. 5. Chronic tobacco abuse, encouraged to stop smoking. 6. Chronic alcohol abuse, discussed at length alcohol cessation. 7. Poor medical compliance with diabetic management. 8. Hypothyroidism with a TSH elevated on admission having been started on supplementation. REASON FOR HOSPITALIZATION: Ms. Rosado is a 47 year-old female patient with a history of Guillain-[place] syndrome. She was diagnosed in 2012 and at that time she had some numbness to her lower extremities. She does admit that she sits at home and does not move around much. She sits in her chair with her feet lowered and watches television due to her difficulty in ambulating, but she has been able to ambulate. She said that she had some "corns" on her feet and approximately 4 months ago starting treating them with an [id number] corn and callus remedy. Approximately 2 weeks ago she said that got to where she could not ambulate and had these sores that appeared on her toes and soles of her feet. Her has difficulty helping her as he is blind in one eye. She had lab done in the Emergency Room. She was afebrile, heart rate was 108, blood pressure 119/78, respiratory rate 18, O2 sat was 100%. Lab was drawn and her WBCs were 7,700 with hemoglobin 12.1, hematocrit 35.9. There was no shift on her differential. Sodium 137, potassium 2.9, chloride 98, carbon dioxide 32 , anion gap 9.9, glucose 114. Serum osmolality was 271.6, calcium 7.9. AST 45 , alkaline phosphatase 239. C reactive protein was 4.2. ESR was 8. Urinalysis was basically within normal limits with the exception of her urine urobilinogen was greater than 8. The E. R. doctor felt that it was a fungal infection with an underlying bacterial infection. I saw the patient in the Emergency Room and discussed her case with Dr. Sullivan. She will be admitted to the hospital for cellulitis of her bilateral feet. LABORATORY: CBC on admission showed white count 7,700. At discharge, it was 4, 800. Hemoglobin and hematocrit were fairly stable and at discharge hemoglobin 12, hematocrit 3.61. MCV showed elevation of MCH indicating a macrocytic/ normochromic anemia. Differential was without a left shift. ESR 8. Chemistries showed initial C-reactive protein 4.2. Chemistries on admission showed potassium 2.9, carbon dioxide 32, BUN less than 5, creatinine 0.64, uric acid 5.4, calcium 7.9. Liver function tests showed elevated AST of 45, ALT 19, alkaline phosphatase elevated at 239. TSH greater than 50. After treatment and prior to discharge, her electrolytes had normalized with potassium 4.1, BUN still low at less than 5, creatinine 0.56, calcium 7.8. AST had gone up to 368 , but was returning to baseline at 219. ALT had also elevated at 74, but was returning to baseline at 69. Alkaline phosphatase was showing continued elevation at 309. Albumin 1.9. Urinalysis was within normal limits. She had several vancomycin troughs which were therapeutic. Admission was 32.2 and prior to discharge on 03/29/18, last trough was drawn and was 11.1. MICROBIOLOGY: Blood cultures collected on admission were negative at 5 days. Wound culture collected on admission showed a methicillin-sensitive Staphylococcus aureus. RADIOLOGY: She had x-rays of both feet and per radiologic interpretation showed gout versus osteomyelitis. This was followed up with an MRI of the lower extremities, bilateral feet, with right foot showing large ulceration along the plantar soft tissues of the great toe, apparently contiguous with the joint and septic arthritis of the interphalangeal joint. Underlying osteomyelitis of proximal phalanx distally. Mild edema in the distal phalanx and edema in the proximal aspect of the proximal phalanx that may be reactive. MRI of the left foot showed extensive osteomyelitis involving the entire proximal phalanx and majority of the first metatarsal of the great toe. Septic arthritis with dorsal dislocation of the proximal phalanx relative to the metatarsal head. Diffuse cellulitis. Chronic ulceration and underlying soft tissue abscess along the plantar medial soft tissues beneath the metatarsal head and phalanx. This is contiguous with the joint. Remote nonunited fracture of the proximal fourth metatarsal. Small foci of edema and minimal trabecular condensation fifth metatarsal head and proximal phalanx of the little toe possibly stress/insufficiency fractures. Not typical to suggest infection. Please see those reports for full details. HOSPITAL COURSE: Ms. Rosado was admitted as noted above for osteomyelitis of the great toes of both feet. Dr. Graves was contacted and recommended starting the patient on cefepime and vancomycin. She did show good response clinically, but was in need of extensive wound management. She did have a consultation with Dr. Bender. Please see his report for full details. [facility] accepted the patient in transfer for continued management. Due to the fact that the patient had shown good clinical response, the patient was then discharged to go to rehabilitation to continue with management. PLAN: Ms. Rosado was discharged on 04/01/18 with instructions to report to [facility] in [place] for continued management of the osteomyelitis. She was given her total dosing on Sunday antibiotic coverage and was reemphasized to report as early as possible to the rehabilitation facility so she would not miss any medications. Diet at discharge was diabetic diet. Activity as per physical therapy. Medications as per electronic medical records with current regimen of antibiotics including cefepime 2 grams q.12h. and vancomycin 1 gram q.24h. DISPOSITION: The patient was discharged to be admitted to [facility], which she did on Sunday afternoon. CONDITION AT DISCHARGE: Stable and improving. [facility][id number] [facility]
== END 2018-04-01 18:00 | disposition home or self-care (01) | DRG 638 ==
LOC: ER 21:21 → MS 03-26 00:47
PROVIDERS: ADMIT Nurse Practitioner Acute Care; ATTEND Nurse Practitioner Acute Care
DX: E11.69 Type 2 diabetes mellitus with other specified complication (principal); L03.115 Cellulitis of right lower limb; G61.0 Guillain-Barre syndrome; M86.8X7 Other osteomyelitis, ankle and foot; L03.116 Cellulitis of left lower limb; R79.89 Other specified abnormal findings of blood chemistry; G89.4 Chronic pain syndrome; F17.210 Nicotine dependence, cigarettes, uncomplicated; F10.10 Alcohol abuse, uncomplicated; Z91.14 Patient's other noncompliance with medication regimen; E03.9 Hypothyroidism, unspecified; B95.61 Methicillin susceptible Staphylococcus aureus infection as the cause of diseases classified elsewhere; M54.2 Cervicalgia

== ENCOUNTER 2018-05-06 10:28 | Emergency (ER) | payer OTHER ==
[2018-05-06] MEDS ORDERED: METHADONE HCL 10 MG TAB PO ONE (11:19)
--- NOTE | 2018-05-06 11:47 | ED.PDOC ---
History of Present Illness - General Chief Complaint: Lower Extremity Injury Stated Complaint: FEET PAIN Time Seen by Provider: 05/06/18 10:33 Source: patient Exam Limitations: no limitations - History of Present Illness Initial Comments: the patient is a 48-year-old female presenting to the emergency room secondary to opiate withdrawal. Essentially the patient ran out of her methadone 3 days ago and has been undergoing withdrawal. She does have long-standing issues of staph sepsis last month for which she was supposed to be getting IV antibiotics. She has not been compliant with coming up to get her IV antibiotics. She does have a PICC line in the right upper extremity. Additionally she has a mild swelling over her left lateral forearm that has been present for the last 2 weeks according to her. It is not really tender to touch and there is no real extending erythema. After cleaning with alcohol aspiration was performed of the area showing only blood, thus it is likely a small hematoma from some accident. The patient reports that she ran out of her pain medication. She was unable to get to her pain management doctor because he was too far away. She does not have a primary care doctor. She does need one. The patient was supposed to follow up with Dr. Graves last week but did not for more extended definitive care of her lower extremity fungal infections. She does need to follow-up with her. Timing/Duration: other Severity: moderate Improving Factors: nothing Worsening Factors: nothing Associated Symptoms: diaphoresis, loss of appetite, malaise Allergies/Adverse Reactions: Allergies NO KNOWN ALLERGY Allergy (Verified 07/09/17 19:45) Home Medications: Ambulatory Orders Gabapentin 1,200 mg PO TID 03/25/18 HYDROcodone 10MG/APAP 325MG [[place] 10/325] 1 ea PO .Q4H 03/25/18 Methadone HCl 10 mg PO TID 03/25/18 tiZANidine [Zanaflex] 4 mg PO BEDTIME 03/25/18 Cefepime [Maxipime] 2 gm IVPB Q12H vial 04/01/18 Vancomycin Per Pharmacy 1 ea INJ ONCE each 04/01/18 Ciprofloxacin [Cipro] 500 mg PO BID #20 tab 05/06/18 Sulfa/Trimeth 800/160 (Ds) Tab [Bactrim DS Tab] 1 ea PO BID #20 tab 05/06/18 Tramadol HCl 50 mg PO Q8HR PRN #30 tab 05/06/18 Review of Systems - Review of Systems Constitutional: States: malaise, weakness EENTM: States: no symptoms reported Respiratory: States: no symptoms reported Cardiology: States: no symptoms reported Gastrointestinal/Abdominal: States: nausea Genitourinary: States: no symptoms reported Musculoskeletal: States: see HPI - generalized body aches Skin: States: see HPI Neurological: States: no symptoms reported Endocrine: States: no symptoms reported All other Systems: No Change from Baseline Past Medical History (General) - Patient Medical History Hx Seizures: No Hx Stroke: No Hx Asthma: No Hx of COPD: No Hx Congestive Heart Failure: No Hx Pacemaker: No Hx Hypertension: No Hx Thyroid Disease: Yes Hx Diabetes: No Hx Cancer: No Hx MRSA: No - Vaccination History Hx Tetanus, Diphtheria Vaccination: No Hx Influenza Vaccination: No Hx Pneumococcal Vaccination: No Immunizations Up to Date: No - Social History Hx Alcohol Use: Yes Hx Substance Use: No Hx Physical Abuse: No Hx Emotional Abuse: No - Female History Patient : No Family Medical History - Family History Mother Family History: Unknown Living Status: Still Living Hx Family Asthma: No Hx Family Congestive Heart Failure: No Hx Family Hypertension: No Hx Family Stroke: No Hx Cardiac Disease: No Hx Family Diabetes: No Hx Family Cancer: Yes - melanoma Hx Family;Other: hyperthyroid Physical Exam - Physical Exam General Appearance: Alert, No apparent distress Eye Exam: bilateral normal Ears, Nose, Throat: hearing grossly normal, normal ENT inspection Neck: full range of motion, supple Respiratory: lungs clear, normal breath sounds, no respiratory distress, no accessory muscle use Cardiovascular/Chest: normal peripheral pulses - borderline tachycardia, regular rate, rhythm Peripheral Pulses: radial,right: 2+, radial,left: 2+ Gastrointestinal/Abdominal: non tender, soft Rectal Exam: deferred Back Exam: no CVA tenderness Extremity: normal range of motion, pedal edema - 1+ to bilateral lower extremities Neurologic: erp business analyst II-XII nml as tested, alert, normal mood/affect, oriented x 3 Skin Exam: other - extensive skin changes of bilateral lower extremities due to fungal infection. Additionally she does have small ulcers on the plantar aspects of both feet distally bilaterally Comments: Vital Signs - 24 hr 05/06/18 11:23 Temperature 98.2 F Pulse Rate [ 104 H MONITOR] Respiratory 22 Rate Blood Pressure 142/108 [RA] O2 Sat by Pulse 97 Oximetry Progress - Progress Progress: 05/06/18 11:49 the patient's 48-year-old female presenting to the emergency room due to opiate withdrawal. The patient was given 1 dose of her methadone and will be written for tramadol for the next few days. She needs to either follow-up with her current pain management doctor or get set up with a new pain management doctor that is more easily accessible. Additionally she does need to follow up with Dr. graves within the next week. based on her blood cultures here that she was receiving IV antibiotics for, I'm going to switch the patient over to Bactrim and ciprofloxacin for the next 10 days. The patient has been unable and unwilling to come up and complete her IV antibiotics that she was supposed to the receiving. She does need to continue local wound care on her feet. PICC line will be left in place for use by infectious disease. ER warnings were given. Departure - Departure Clinical Impression: Opiate withdrawal Cellulitis Qualifiers: Site of cellulitis: other site Qualified Code(s): L03.818 - Cellulitis of other sites Disposition: Discharge to Home or Self Care Condition: Fair Departure Forms: ED Discharge - Pt. Copy, Patient Portal Self Enrollment Diet: regular diet Activity: increase activity as tolerated Prescriptions: Tramadol HCl 50 mg PO Q8HR PRN #30 tab PRN Reason: Moderate Pain Ciprofloxacin [Cipro] 500 mg PO BID #20 tab Sulfa/Trimeth 800/160 (Ds) Tab [Bactrim DS Tab] 1 ea PO BID #20 tab Home Medications: Ambulatory Orders Gabapentin 1,200 mg PO TID 03/25/18 HYDROcodone 10MG/APAP 325MG [[place] 10/325] 1 ea PO .Q4H 03/25/18 Methadone HCl 10 mg PO TID 03/25/18 tiZANidine [Zanaflex] 4 mg PO BEDTIME 03/25/18 Cefepime [Maxipime] 2 gm IVPB Q12H vial 04/01/18 Vancomycin Per Pharmacy 1 ea INJ ONCE each 04/01/18 Ciprofloxacin [Cipro] 500 mg PO BID #20 tab 05/06/18 Sulfa/Trimeth 800/160 (Ds) Tab [Bactrim DS Tab] 1 ea PO BID #20 tab 05/06/18 Tramadol HCl 50 mg PO Q8HR PRN #30 tab 05/06/18 Additional Instructions: follow-up with pain management to get her methadone. Follow-up with infectious disease as soon as possible for definitive care of your feet. Obtain a primary care doctor in the area. ER warnings. Continue local wound care of the feet.
[2018-05-06 12:37] VITALS: BP 155/89; TEMP 97.5; O2SAT 99
== END 2018-05-06 12:46 | disposition home or self-care (01) ==
LOC: ER 10:28
DX: F11.23 Opioid dependence with withdrawal (principal); L03.90 Cellulitis, unspecified; M79.89 Other specified soft tissue disorders; B35.3 Tinea pedis; E07.9 Disorder of thyroid, unspecified

== ENCOUNTER → 2018-07-24 | Outpatient (CLI) | payer MEDICARE | LOC: GMAM 18:34 | PROVIDERS: ATTEND Family Medicine | DX: N91.2 Amenorrhea, unspecified (principal); E03.9 Hypothyroidism, unspecified ==

== ENCOUNTER 2018-10-24 19:12 | Inpatient (IN) | payer MEDICARE, OTHER ==
--- NOTE | 2018-10-24 20:28 | ED.PDOC ---
History of Present Illness - General Chief Complaint: General Stated Complaint: Numbness and tingling from feet up Time Seen by Provider: 10/24/18 19:40 Source: patient Exam Limitations: no limitations - History of Present Illness Initial Comments: Naty Rosado 48 y/o female came to ER with redness and swelling big toes of both feet for the last one week was diagnosed with osteomyelitis by infectious disease specialist in last year and was supposed to have follow up but unable to do it since she does not have a ride for Md appointment in .Denies fever ,chills but had been hurting both feet. Timing/Duration: 1 week Severity: moderate Improving Factors: rest Worsening Factors: movement Associated Symptoms: other - see hpi Allergies/Adverse Reactions: Allergies NO KNOWN ALLERGY Allergy (Verified 07/09/17 19:45) Home Medications: Ambulatory Orders Gabapentin 1,200 mg PO TID 03/25/18 HYDROcodone 10MG/APAP 325MG [[place] 10/325] 1 ea PO .Q4H 03/25/18 Methadone HCl 10 mg PO TID 03/25/18 tiZANidine [Zanaflex] 4 mg PO BEDTIME 03/25/18 Cefepime [Maxipime] 2 gm IVPB Q12H vial 04/01/18 Vancomycin Per Pharmacy 1 ea INJ ONCE each 04/01/18 Ciprofloxacin [Cipro] 500 mg PO BID #20 tab 05/06/18 Sulfa/Trimeth 800/160 (Ds) Tab [Bactrim DS Tab] 1 ea PO BID #20 tab 05/06/18 Tramadol HCl 50 mg PO Q8HR PRN #30 tab 05/06/18 Review of Systems - Review of Systems Musculoskeletal: States: see HPI, joint pain, joint swelling Past Medical History (General) - Patient Medical History Hx Seizures: No Hx Stroke: No Hx Dementia: No Hx Asthma: No Hx of COPD: No Hx Cardiac Disorders: No Hx Congestive Heart Failure: No Hx Pacemaker: No Hx Hypertension: No Hx Thyroid Disease: Yes - Hypothyroidism Hx Diabetes: No Hx Gastroesophageal Reflux: No Hx Renal Disease: No Hx Cancer: No Hx of HIV: No Hx Hepatitis C: No Hx MRSA: No 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 Surgical History: other - Vaccination History Hx Tetanus, Diphtheria Vaccination: No Hx Influenza Vaccination: No Hx Pneumococcal Vaccination: No Immunizations Up to Date: No - Social History Hx Tobacco Use: Yes Years Tobacco Use: 35 Cigarettes Packs Per Day: 1 Hx Chewing Tobacco Use: No Hx Alcohol Use: Yes - Drinks about four drinks per day Hx Substance Use: No Hx Substance Use Treatment: No Hx Depression: No Feels Threatened In Home Enviroment: No Feels Threatened In a Relationship: No Hx Physical Abuse: No Hx Emotional Abuse: No Hx Suspected Abuse: No - Activities of Daily Living Hospice Agency (if applicable):: None - Female History Patient is a Female of Child Bearing Age (10 -59 yrs old): Yes Patient : No - Triage Comment ED Triage Comment: Pt states that she was diagnosed with osteomylitis six months ago in the emergency department and has been unable to follow up with the diagnosis for various reasons. Pt states that the pain is getting worse especially in the last six days. Pt states that she is experiencing numbness and tingling from her feet up to her face and it is affecting her vision. Pt states that her pain is 10/10. Family Medical History - Family History Mother Family History: Unknown Living Status: Still Living Hx Family Asthma: No Hx Family Congestive Heart Failure: No Hx Family Hypertension: No Hx Family Stroke: No Hx Cardiac Disease: No Hx Family Diabetes: No Hx Family Cancer: Yes - melanoma Hx Family;Other: hyperthyroid Physical Exam - Physical Exam General Appearance: Alert, Comfortable, No apparent distress Eye Exam: bilateral normal Ears, Nose, Throat: hearing grossly normal, normal ENT inspection Neck: non-tender, full range of motion, supple, normal inspection Respiratory: chest non-tender, lungs clear, no respiratory distress, decreased breath sounds Cardiovascular/Chest: normal peripheral pulses, regular rate, rhythm, no murmur Peripheral Pulses: radial,right: 2+, radial,left: 2+ Gastrointestinal/Abdominal: non tender, soft, no organomegaly Extremity: normal inspection, no pedal edema, swelling - big toes both feet and both forefoot Progress - Progress Progress: 10/24/18 21:07 Vital Signs - 8 hr 10/24/18 10/24/18 10/24/18 19:18 20:09 20:14 Temperature 98.7 F Pulse Rate [ 113 H 113 H 102 H Monitor] Respiratory 18 18 20 Rate Blood Pressure 132/97 140/109 [Left Arm] O2 Sat by Pulse 96 97 Oximetry - Results/Orders Results/Orders: Laboratory Tests 10/24/18 10/24/18 10/24/18 20:17 20:17 20:17 WBC 7.9 RBC 4.75 Hgb 17.5 H Hct 50.1 H MCV 105.5 H MCH 36.9 H MCHC 35.0 RDW 15.3 H Plt Count 204 MPV 8.2 Absolute Neuts (auto) 6.20 Absolute Lymphs (auto) 1.20 Absolute Monos (auto) 0.40 Absolute Eos (auto) 0.00 Absolute Basos (auto) 0.00 Neutrophils % 79.0 H Lymphocytes % 15.3 L Monocytes % 4.8 Eosinophils % 0.5 L Basophils % 0.4 RBC Morphology 2+macrocytosis ESR 1 PT 10.9 INR 1.09 PTT (SP) 26.7 Sodium 133 L Potassium 3.1 L Chloride 91 L Carbon Dioxide 26 Anion Gap 19.1 H BUN < 5 L Creatinine 0.73 BUN/Creatinine Ratio 6.8 L Random Glucose 92 Serum Osmolality 262.9 L Lactic Acid 4.3 H* Calcium 8.9 Magnesium 1.6 L Total Bilirubin 0.9 Direct Bilirubin 0.4 H Indirect Bilirubin 0.5 AST 127 H ALT 59 Alkaline Phosphatase 229 H Creatine Kinase 79 CK-MB (CK-2) 4.4 CK-MB (CK-2) % Not Reportable Troponin I < 0.02 C-Reactive Protein < 0.5 Serum Total Protein 7.6 Albumin 3.9 10/24/18 23:38 WBC RBC Hgb Hct MCV MCH MCHC RDW Plt Count MPV Absolute Neuts (auto) Absolute Lymphs (auto) Absolute Monos (auto) Absolute Eos (auto) Absolute Basos (auto) Neutrophils % Lymphocytes % Monocytes % Eosinophils % Basophils % RBC Morphology ESR PT INR PTT (SP) Sodium Potassium Chloride Carbon Dioxide Anion Gap BUN Creatinine BUN/Creatinine Ratio Random Glucose Serum Osmolality Lactic Acid 3.9 H* Calcium Magnesium Total Bilirubin Direct Bilirubin Indirect Bilirubin AST ALT Alkaline Phosphatase Creatine Kinase CK-MB (CK-2) CK-MB (CK-2) % Troponin I C-Reactive Protein Serum Total Protein Albumin - EKG/XRAY/CT XRAY: bothe feet -soft tissue swelling no acute osteomyelitis - copd changes CT Ordered: No Departure - Departure Clinical Impression: Cellulitis of great toe of right foot, Cellulitis of toe of left foot, Polycythemia secondary to smoking, Chronic pain disorder Time of Disposition: 00:59 Disposition: Admit Patient Condition: Fair Departure Forms: Patient Portal Self Enrollment Referrals: Solomon James MD [Primary Care Provider] - 1-2 Weeks Home Medications: Ambulatory Orders Gabapentin 1,200 mg PO TID 03/25/18 HYDROcodone 10MG/APAP 325MG [[place] 10/325] 1 ea PO .Q4H 03/25/18 Methadone HCl 10 mg PO TID 03/25/18 tiZANidine [Zanaflex] 4 mg PO BEDTIME 03/25/18 Cefepime [Maxipime] 2 gm IVPB Q12H vial 04/01/18 Vancomycin Per Pharmacy 1 ea INJ ONCE each 04/01/18 Ciprofloxacin [Cipro] 500 mg PO BID #20 tab 05/06/18 Sulfa/Trimeth 800/160 (Ds) Tab [Bactrim DS Tab] 1 ea PO BID #20 tab 05/06/18 Tramadol HCl 50 mg PO Q8HR PRN #30 tab 05/06/18 Decision To Admit - Decistion To Admit Decision to Admit Reason: Admit from ER Decision to Admit Date: 10/25/18 - D/W Trent Lua-SOLO/Hospitalist Decision to Admit Time: 00:57
--- NOTE | 2018-10-24 20:38 | RAD ---
EXAM DESCRIPTION: XR Chest,1 View CLINICAL HISTORY: 48 years Female swelling TECHNIQUE: One view of the chest. COMPARISON: No prior exams provided for comparison. FINDINGS: Suspected mild chronic obstructive pulmonary disease. No focal airspace consolidation, pleural effusion, or pneumothorax. Normal cardiomediastinal silhouette. No acute osseous abnormality. IMPRESSION: Suspected mild chronic obstructive pulmonary disease. No acute findings. Electronically signed by: Ann-Marie Beck MD 10/24/2018 8:36 PM CDT
--- NOTE | 2018-10-24 20:42 | RAD ---
EXAM DESCRIPTION: XR Foot, Left 3 Views CLINICAL HISTORY: 48 years Female swelling TECHNIQUE: Three views of the left foot are provided. COMPARISON: Comparison is made to the prior examination dated 03/26/2018. FINDINGS: There is pronounced soft tissue swelling about the left great toe and over the dorsum of the left foot. There is chronic fusion across the first metatarsophalangeal joint. There is evidence of a healed first metatarsal neck fracture, and a healed fracture at the medial, distal corner of the first proximal phalanx. Heterogeneous sclerosis and lytic areas within the first metatarsal and proximal phalanx likely reflect prior osteomyelitis as visualized acute bleed on the prior exam. Previously seen periosteal reaction has healed. No definite visualized soft tissue gas or foreign body. The remainder of the left foot appears normal. No acute fracture or dislocation. IMPRESSION: Severe cellulitis about the left great toe and over the dorsum of the left foot. The prior exam, there has been mature fusion across the first metatarsophalangeal joint and interval healing of the previously seen active osteomyelitis. No definite findings to suggest acute osteomyelitis. However, if there is high clinical suspicion for active osteomyelitis (particularly if there is a skin ulcer), consider contrast-enhanced MRI. Electronically signed by: Ann-Marie Beck MD 10/24/2018 8:40 PM CDT
--- NOTE | 2018-10-24 20:45 | RAD ---
EXAM DESCRIPTION: XR Foot, Right 3 Views CLINICAL HISTORY: 48 years Female swelling TECHNIQUE: Three views of the right foot are provided. COMPARISON: Comparison is made to the prior examination dated 03/26/2018. FINDINGS: There is moderate to severe cellulitis about the right great toe with mild swelling over the dorsum of the foot. Previously seen great toe ulcer is no longer visualized. 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 Mild osteoarthritis again noted at the first metatarsophalangeal joint. No acute fracture. No periosteal reaction or cortical destruction to suggest osteomyelitis. No visualized soft tissue gas or foreign body. IMPRESSION: Moderate to severe right great toe cellulitis. Previously seen ulcer is no longer visualized. Stable medial subluxation and degenerative change at the first interphalangeal joint without acute osseous abnormality. Electronically signed by: Ann-Marie Beck MD 10/24/2018 8:43 PM CDT
[2018-10-24] MEDS ORDERED: SODIUM CHLORIDE 0.9% 1000ML 1,000 ML IVS ONE (20:58)
[2018-10-24] MEDS ORDERED: VANCOMYCIN HCL INJ 1,000 MG VIAL IVPB ONE (21:14)
[2018-10-24] MEDS ORDERED: SODIUM CHLORIDE 0.9% 250ML 250 ML ONE (21:15)
[2018-10-24] MEDS ORDERED: VANCOMYCIN HCL IVPB SCH (21:30)
[2018-10-24] MEDS ORDERED: SODIUM CHLORIDE 0.9% IVPB SCH (21:30)
[2018-10-25] MEDS ORDERED: HYDROcodone 10MG/APAP 325MG 1 EA TAB PO ONE (01:00)
--- NOTE | 2018-10-25 01:24 | HP ---
SUPERVISING PHYSICIAN: Luis Sullivan MD CHIEF COMPLAINT: Pain in bilateral feet. HISTORY OF PRESENT ILLNESS: This is a 48-year-old female patient who came to the Emergency Room with redness and swelling of both of her great toes of both feet. She has had it over one week. It is to be noted that she did have osteomyelitis approximately 6 to 7 months ago, but did not have any followup to see Dr. Graves and did not complete her outpatient antibiotics due to transportation. She has had no fever, but significant chills and both feet have been hurting. In the Emergency Room, her vital signs showed temperature 98.7, heart rate 113, blood pressure 132/97, respiratory rate 18, O2 saturation 96% on room air. Her initial WBCs were 7.9 with hemoglobin 17.5, hematocrit 50.1. Sodium 133, potassium 3.1, chloride 91, BUN less than 5, creatinine 0.73, serum osmolality 262.9, lactic acid 4.3, magnesium 1.6, total bilirubin 0.9, direct bilirubin 0.4, indirect bilirubin 0.5, AST 127, alkaline phosphatase 229. Cardiac enzymes were negative. Urinalysis showed dark yellow urine color with a small amount of urine bilirubin, 2 urobilinogen and 3+ urine bacteria. UDS was negative. Right foot x-ray showed moderate to severe right great to cellulitis, previously seen ulcer is no longer visualized, stable medial subluxation and degenerative changes of the first interphalangeal joint without acute osseous abnormality. Her left foot x-ray showed severe cellulitis about the left great toe and over the dorsum of the left foot. 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 There are no definite findings to suggest acute osteomyelitis, however, there is a high clinical suspicion for active osteomyelitis. Consider a contrast enhanced MRI. Her chest x-ray shows suspect mild chronic obstructive pulmonary disease with no acute findings. She was given some fluids in the Emergency Room as well as some vancomycin. She was also given some potassium and magnesium supplementation as well as Ketoralac. She was also given doxycycline and ceftriaxone. She was admitted to the Floor. PAST MEDICAL HISTORY: 1. Chronic neck pain. 2. Chronic obstructive pulmonary disease in a chronic smoker. 3. Hypothyroidism. 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 5. Chronic pain syndrome followed by [facility] in [place]. PAST SURGICAL HISTORY: 1. Neck surgery. 2. Tonsillectomy. MEDICATIONS: Per the EMR and awaiting verification. ALLERGIES: NO KNOWN DRUG ALLERGIES. FAMILY HISTORY: Noncontributory. SOCIAL HISTORY: She is . She lives in [place]. She smokes approximately one pack of cigarettes daily. She does drink alcohol on a daily basis although she said she does not know how much she drinks and it varies from day to day. She denies any illicit drug use. REVIEW OF SYSTEMS: GENERAL: Positive fro chills. Negative for fever or weight changes. HEENT: Negative for sinus symptoms, ear pain, vision changes or sore throat. RESPIRATORY: Negative for wheezing, coughing or shortness of breath. CARDIAC: Negative for chest pain, palpitations or tachycardia. GASTROINTESTINAL: Negative for nausea, vomiting, diarrhea, constipation. GENITOURINARY: Negative for hematuria, dysuria or polyuria. MUSCULOSKELETAL: As per history of present illness. SKIN: Positive for cellulitis to bilateral feet, especially both great toes. NEUROLOGIC: Negative for headache, dizziness or seizures. PHYSICAL EXAMINATION: VITAL SIGNS: Temperature 98.5. Heart rate 73. Blood pressure 137/89. Respiratory rate 16. O2 saturation 100% on room air. GENERAL: This is a 48-year-old female patient who is lying in her hospital bed. She looks older than her stated age. She is in no acute distress. HEENT: Normocephalic, atraumatic. Pupils are equal and reactive. NECK: Supple without mass. RESPIRATORY: Somewhat distant breath sounds, but essentially clear to auscultation. CHEST: There is equal rise and fall of the chest with inspiration and expiration. CARDIOVASCULAR: Regular rate and rhythm. GASTROINTESTINAL: Abdomen is soft, nondistended, nontender. Bowel sounds are positive. EXTREMITIES: Bilateral feet are somewhat edematous, especially in the great toe areas and there is erythema. No fluctuance noted. Very tender to palpation, especially on the left foot. NEUROLOGIC: Awake, alert and oriented times three. LABORATORY: Followup labs show an ESR of 1 with unremarkable CBC. PT/INR within normal limits. Sodium 135, potassium 3.4, chloride 99, glucose 84, lactic acid 3, calcium 7.8, uric acid 6.7. All other labs and films have been reviewed via the EMR. IMPRESSION: 1. Cellulitis of bilateral great toes with concerns for osteomyelitis of the left foot. 2. Chronic obstructive pulmonary disease without signs or symptoms of acute exacerbation. 3. Elevated liver function tests, chronic in nature as her previous admission showed elevated liver function tests. 4. History of Guillain-[place] syndrome with no signs or symptoms of exacerbation. 5. Chronic pain syndrome. 6. Tobacco abuse. 7. ETOH abuse. 8. Poor medical compliance. She actually had been diagnosed with cellulitis/osteomyelitis back in March of 2018 and was unable to followup with Dr. Graves due to distance and cost. PLAN: The patient has been admitted to the hospital. She originally was put on vancomycin, doxycycline and Rocephin. I spoke with Dr. Graves, Infectious Diseases in [place] and she said until an MRI of the left foot was completed, just to continue on the vancomycin and I have continued the vancomycin per her recommendations. She has also received some fluids and we will continue those overnight. Hopefully we can discontinue those in the morning. She is on Lovenox for DVT prophylaxis as well as proton pump inhibitor for ulcer prophylaxis. I have restarted her home medications. We discussed smoking cessation as well as cutting down on her alcohol intake. I have ordered an MRI with contrast of the left foot per her recommendations and I will touch base with Dr. Graves after results are in. I have also put her on p.r.n. and scheduled nebulizer treatments. She will have good pulmonary hygiene and we will continue monitor her closely and follow as needed. #[id number] [facility]
[2018-10-25] MEDS ORDERED: ALUM & MAG HYDROX-SIMETHICONE 30 ML UD PO PRN (02:37)
[2018-10-25] MEDS ORDERED: ACETAMINOPHEN 325 MG TAB PO PRN (02:37)
[2018-10-25] MEDS ORDERED: MAGNESIUM HYDROXIDE 30 ML UD PO PRN (02:37)
[2018-10-25] MEDS ORDERED: MORPHINE SULFATE INJ 10 MG/ML VIAL IV PRN (02:37)
[2018-10-25] MEDS ORDERED: HYDROcodone 5MG/APAP 325MG 1 EA TAB PO PRN (02:37)
[2018-10-25] MEDS ORDERED: MAGNESIUM SULFATE PREMIX 2GM 2 GM in PREMIX BAG 1 BAG IVPB ONE (02:42)
[2018-10-25] MEDS ORDERED: SODIUM CHLORIDE 0.9% 1000ML 1,000 ML IVS ONE (02:43)
[2018-10-25] MEDS ORDERED: SODIUM CHLORIDE 0.9% 500ML 500 ML IVS ONE (02:45)
[2018-10-25] MEDS ORDERED: KETOROLAC TROMETHAMINE INJ 30 MG/ML VIAL IV ONE (02:52)
[2018-10-25] MEDS ORDERED: VANCOMYCIN PER PHARMACY INJ SCH (03:00)
[2018-10-25] MEDS ORDERED: cefTRIAXone SODIUM 1 GM in SODIUM CHL 0.9% 50ML MIN-BAG+ 50 ML IVPB SCH (03:00)
[2018-10-25] MEDS ORDERED: MAGNESIUM SULFATE PREMIX 2GM 50 ML IVPB ONE (03:02)
[2018-10-25] MEDS: ONDANSETRON INJ 4 MG/2 ML VIAL IV PRN (03:12)
[2018-10-25] MEDS: IV SET AND CAP CHANGE INJ INJ SCH (04:05)
[2018-10-25] MEDS ORDERED: SODIUM CHL 0.9% 50ML MIN-BAG+ 50 ML IVPB ONE (04:32)
[2018-10-25] MEDS ORDERED: cefTRIAXone SODIUM 1 GM VIAL ONE (04:32)
[2018-10-25] MEDS: KCL 40MEQ/NS 1,000 ML IVS PRN ×2 (04:36→15:58)
[2018-10-25] MEDS: DOXYCYCLINE HYCLATE CAP 100 MG CAP PO SCH ×2 (04:43→09:56)
[2018-10-25] MEDS: NICOTINE PATCH 14 MG TD SCH ×2 (05:07→09:56)
[2018-10-25] MEDS ORDERED: VANCOMYCIN HCL INJ 1,000 MG VIAL IVPB ONE ×2 (08:36→19:20)
[2018-10-25] MEDS ORDERED: SODIUM CHLORIDE 0.9% 250ML 250 ML ONE ×2 (08:36→19:20)
[2018-10-25] MEDS: ENOXAPARIN SODIUM 40 MG/0.4 ML SYG SUBCU SCH (09:56)
[2018-10-25] MEDS: VANCOMYCIN HCL INJ 1,000 MG in SODIUM CHLORIDE 0.9% 250ML 250 ML IVPB SCH ×2 (09:57→22:22)
[2018-10-25] MEDS: REMOVE OLD PATCH TOP SCH (09:57)
[2018-10-25] MEDS ORDERED: POTASSIUM CHLORIDE 20 MEQ TAB PO ONE (12:39)
[2018-10-25] MEDS ORDERED: HYDROcodone 10MG/APAP 325MG 1 EA TAB PO PRN (13:50)
[2018-10-25] MEDS ORDERED: ALBUTEROL SULFATE 2.5 MG/3 ML VIAL NEB PRN (14:07)
[2018-10-25] MEDS ORDERED: HALOPERIDOL LACTATE INJ 5 MG/ML VIAL IM PRN (14:08)
--- NOTE | 2018-10-25 15:17 | MRI ---
EXAM DESCRIPTION: MRI left great toe/foot without and with contrast CLINICAL HISTORY: Nonhealing wound. Assess for osteomyelitis COMPARISON: None. TECHNIQUE: Multiplanar, multisequence MR images of the left foot/great toe, pre and post intravenous gadolinium FINDINGS: Marked deformity of the metatarsal phalangeal joint great toe. Remote posttraumatic deformity of the metatarsal head with chronic periostitis/periosteal new bone along the dorsal metatarsal shaft. Dorsal dislocation of the proximal phalanx with proximal migration and chronic scalloped bony remodeling of the plantar proximal epiphysis and metatarsal head. STIR images demonstrate diffuse marrow edema throughout the proximal phalanx. A chronic osteochondral lesion at the plantar medial articular surface of the proximal phalanx at the interphalangeal joint measures about 1 cm in greatest dimension. Subchondral cortical irregularity and edema best seen coronal T1 image 13. Edema throughout the first metatarsal sparing the proximal epiphysis and metaphysis. Intramedullary edema in the epiphysis and metaphysis and proximal diaphysis. Chronic periosteal new bone with mild edema along the dorsal metatarsal diaphysis Surrounding soft tissue edema and swelling with small joint effusion. Postcontrast images demonstrate enhancement along both sides of the pseudarthrosis, base of the proximal phalanx articulating with the deformed head of the metatarsal consistent with mechanical edema. No other enhancement throughout the proximal phalanx. Small focus of enhancement in the plantar deformed metatarsal head. This could be mechanical with thin overlying soft tissues. Correlate for possible overlying/contiguous soft tissue ulceration which would increase the suspicion for osteomyelitis accounting for this enhancement The plantar soft tissues demonstrate diffuse abnormal signal, intermediate T1, intermediate and bright PD without significant contrast enhancement. There is no fluid collection in the soft tissues second through fifth metatarsal phalangeal joints and interphalangeal joints. There is a small bunion and minimal edema in the lateral fifth metatarsal head No abnormality of the tarsometatarsal joints. 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 Small region of enhancement in the plantar metatarsal head. Also compatible with mechanical etiology. If in contact with an overlying soft tissue ulceration/wound the signal in the plantar metatarsal head could be early osteomyelitis No soft tissue abscess, septic arthritis or septic tenosynovitis Electronically signed by: Solomon Porras MD 10/25/2018 3:14 PM CDT
[2018-10-25] MEDS: METHADONE HCL 10 MG TAB PO SCH (15:55)
[2018-10-25] MEDS: GABAPENTIN 400 MG CAP PO SCH ×2 (15:55→20:57)
[2018-10-25] MEDS ORDERED: LEVOTHYROXINE SODIUM 0.1 MG TAB ONE (19:20)
[2018-10-25] MEDS ORDERED: LEVOTHYROXINE SODIUM 0.025 MG TAB ONE (19:20)
[2018-10-25] MEDS: ALBUTEROL SULFATE 2.5 MG/3 ML VIAL NEB SCH (22:20)
[2018-10-26] MEDS: KCL 40MEQ/NS 1,000 ML IVS PRN ×2 (00:31→06:18)
[2018-10-26] MEDS: LEVOTHYROXINE SODIUM 0.025 MG TAB PO SCH (06:12)
[2018-10-26] MEDS: LEVOTHYROXINE SODIUM 0.1 MG TAB PO SCH (06:12)
[2018-10-26] MEDS ORDERED: SODIUM CHLORIDE 0.9% 250ML 250 ML ONE ×2 (07:31→20:42)
[2018-10-26] MEDS ORDERED: VANCOMYCIN HCL INJ 1,000 MG VIAL IVPB ONE ×2 (07:32→20:43)
[2018-10-26] MEDS: ALBUTEROL SULFATE 2.5 MG/3 ML VIAL NEB SCH ×2 (08:30→20:18)
[2018-10-26] MEDS: GABAPENTIN 400 MG CAP PO SCH ×3 (08:52→21:52)
[2018-10-26] MEDS: METHADONE HCL 10 MG TAB PO SCH (08:52)
[2018-10-26] MEDS: NICOTINE PATCH 14 MG TD SCH (08:52)
[2018-10-26] MEDS: ENOXAPARIN SODIUM 40 MG/0.4 ML SYG SUBCU SCH (08:52)
[2018-10-26] MEDS: REMOVE OLD PATCH TOP SCH (08:53)
[2018-10-26] MEDS: VANCOMYCIN HCL INJ 1,000 MG in SODIUM CHLORIDE 0.9% 250ML 250 ML IVPB SCH ×2 (08:53→21:51)
[2018-10-26] MEDS: ONDANSETRON INJ 4 MG/2 ML VIAL IV PRN (15:49)
--- NOTE | 2018-10-26 16:23 | PN ---
DATE: 10/26/18 SUPERVISING PHYSICIAN: Rivas Rivers M.D. SUBJECTIVE: The patient is sitting up in her bed. States she feels much better. We discussed her discharge plan and that she does not have osteomyelitis in her foot, but that she would probably have to continue to do outpatient active bleeding therapy with a followup with Dr. James, her primary care provider, and Dr. Graves, Infectious Diseases. OBJECTIVE: VITAL SIGNS: Temperature 98.8, heart rate 69, blood pressure 129/74, respiratory rate 18, O2 sat 98% on room air. RESPIRATORY: Essentially clear to auscultation bilaterally. CARDIAC: Regular rate and rhythm. GASTROINTESTINAL: Abdomen is soft, nondistended, non-tender. Bowel sounds are positive. EXTREMITIES: Her bilateral great toes are erythematous and slightly edematous. It has improved since yesterday. The left one is slightly worse than the right one. There is no drainage or fluctuance noted. NEUROLOGIC: She is awake, alert and oriented times three. LABORATORY: WBCs are 4.5 with hemoglobin 14.9, hematocrit 44.3. Neutrophils have improved to 64. Sodium 135, potassium 5.1, calcium 8.1. Total bilirubin 1.3, magnesium 1.8. Gonorrhea and Chlamydia testing is pending. Lower extremity MRI shows diffuse marrow edema throughout the proximal phalanx related to chronic osteochondral lesions at the interphalangeal joint and mechanical edema at the pseudoarthrosis. 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 Edema through the first metatarsal probably most related to chronic periosteal new bone/stress related edema. Small region of enhancement in the plantar metatarsal head also compatible with mechanical etiology. If in contact with an overlying soft tissue ulceration/wound the signal in the plantar metatarsal head could be early osteomyelitis. No soft tissue abscess, septic arthritis or septic tenosynovitis. All other labs and films have been reviewed via the EMR. ASSESSMENT: 1. Cellulitis of bilateral great toes with the left great toe worse than the right. Osteomyelitis was ruled out by the MRI. 2. Chronic obstructive pulmonary disease without signs or symptoms of acute exacerbation. 3. Elevated liver function tests, chronic in nature as her previous admission showed elevated liver function tests. 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 5. Chronic pain syndrome. 6. Tobacco abuse. 7. ETOH abuse. 8. Poor medical compliance. She actually had been diagnosed with cellulitis/osteomyelitis back in March of 2018 and was unable to followup with Dr. Graves due to cost and distance to appointment. PLAN: We will continue present supportive care. She will continue with her vancomycin. I have not spoken to Dr. Graves, Infectious Diseases in [place] to inform her that osteomyelitis was ruled out of that left great toe, but I did speak to her on Sunday. Need to touch base with her on Sunday to see what antibiotic and how long the duration of her treatment should be. She needs a followup with her primary care provider, Dr. James, as well as Dr. Graves. Dr. Graves would like to see her in clinic on 11/04, although she does need a very early childhood education coordinator appointment with her as she sees her pain management doctor at 2:30 in the afternoon of 11/04 in [place]. I have discontinued her IV fluids. I will hold on labs for tomorrow. Will continue to monitor closely and follow as needed. [facility][id number] [facility]
[2018-10-27] MEDS: NICOTINE PATCH 14 MG TD SCH ×2 (06:38→08:20)
[2018-10-27] MEDS: LEVOTHYROXINE SODIUM 0.025 MG TAB PO SCH (06:38)
[2018-10-27] MEDS: LEVOTHYROXINE SODIUM 0.1 MG TAB PO SCH (06:38)
[2018-10-27] MEDS ORDERED: SODIUM CHLORIDE 0.9% 250ML 0 ML ONE (07:24)
[2018-10-27] MEDS ORDERED: VANCOMYCIN HCL INJ 1,000 MG VIAL IVPB ONE ×2 (07:25→22:16)
[2018-10-27] MEDS: ENOXAPARIN SODIUM 40 MG/0.4 ML SYG SUBCU SCH (08:20)
[2018-10-27] MEDS: GABAPENTIN 400 MG CAP PO SCH ×3 (08:20→21:32)
[2018-10-27] MEDS: METHADONE HCL 10 MG TAB PO SCH (08:20)
[2018-10-27] MEDS: REMOVE OLD PATCH TOP SCH (08:21)
[2018-10-27] MEDS: ALBUTEROL SULFATE 2.5 MG/3 ML VIAL NEB SCH ×2 (08:35→20:35)
[2018-10-27] MEDS: VANCOMYCIN HCL INJ 1,000 MG in SODIUM CHLORIDE 0.9% 250ML 250 ML IVPB SCH ×2 (10:00→22:23)
[2018-10-27] MEDS ORDERED: MAGNESIUM SULFATE PREMIX 2GM 2 GM in PREMIX BAG 1 BAG IVPB ONE (11:59)
[2018-10-27] MEDS ORDERED: MAGNESIUM SULFATE PREMIX 2GM 50 ML IVPB ONE (13:36)
--- NOTE | 2018-10-27 16:42 | PN ---
DATE: 10/27/18 SUPERVISING PHYSICIAN: Rivas Rivers M.D. SUBJECTIVE: The patient is sitting up in her bed. She feels much better. No complaints of nausea, vomiting, diarrhea, chest pain or shortness of breath. Her feet continue to hurt but again that is improving as well. OBJECTIVE: VITAL SIGNS: Temperature 98, heart rate 81, blood pressure 119/76, respiratory rate 18, O2 sat 97% on room air. RESPIRATORY: Essentially clear to auscultation bilaterally. CARDIAC: Regular rate and rhythm. GASTROINTESTINAL: Abdomen is soft, nondistended, non-tender. Bowel sounds are positive. EXTREMITIES: Bilateral toes remained erythematous but that has improved. Bilateral great toes are also somewhat edematous as well. Her left great toe actually looks somewhat better than her right great toe as she continues to have a 1+ cm scabbed area on the plantar surface of her right great toe. There is no drainage or fluctuance. The very tiny 2 to 3 mm scab on the plantar surface of her left great toe has improved greatly. There is no fluctuance or drainage noted. NEUROLOGIC: She is awake, alert and oriented times three. LABORATORY: WBCs are 3.7 with hemoglobin 14.3, hematocrit 42.3. Sodium 132, serum osmolality 259.6, magnesium 1.5, serum total protein 5.8, albumin 3.1. All other labs and films have been reviewed via the EMR. ASSESSMENT: 1. Cellulitis of bilateral great toes. Osteomyelitis of the left great toe was ruled out by MRI. She does have a significant history of osteomyelitis most recently in March of 2018. 2. Chronic obstructive pulmonary disease without signs or symptoms of acute exacerbation. 3. Elevated liver function tests, chronic in nature as her previous admission showed elevated liver function tests. 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 5. Chronic pain syndrome. 6. Tobacco abuse. 7. ETOH abuse. 8. Poor medical compliance. She actually had been diagnosed with cellulitis/osteomyelitis back in March of 2018 and was unable to followup with Dr. Graves due to cost and distance to appointment. PLAN: We will continue present supportive care. She will continue with her vancomycin until we speak with Dr. Graves tomorrow. At this point she will need to have followup with Dr. Graves as recommended by her. Dr. Graves is in [place] on November 04 and the patient would be unable to go to [place] but she could see her here. She does have a pain management appointment in [place] on the at 2:30 in the afternoon that she says she cannot miss. Most likely she will need several weeks of IV antibiotic therapy, but I will leave that up to Dr. Graves which we can find out tomorrow. Initially I thought that the patient could do outpatient IV antibiotic therapy, but she lives out at the [place] and she said she would be unable to come into town daily due to cost. She said that she would sleep in her car if she could not stay in the hospital for antibiotic therapy because she would really like to get this infection cleared up. She does have traditional Medicare starting tomorrow. I have consulted Des[facility]ph[facility] Operator to see if she would be a candidate for Swing Bed for antibiotic therapy. Again, her length of treatment would depend on Dr. Graves's suggestions. She will also need a close followup with Dr. James. I will give her some magnesium supplementation today and recheck her lab tomorrow. Will continue to monitor closely and follow as needed. #[id number] [facility]
[2018-10-27] MEDS ORDERED: SODIUM CHLORIDE 0.9% 250ML 250 ML ONE (22:16)
[2018-10-27] MEDS: SODIUM CHLORIDE 0.9% (FLUSH) 10 ML SYG IV PRN (22:28)
[2018-10-28] MEDS: IV SET AND CAP CHANGE INJ INJ SCH (03:36)
[2018-10-28] MEDS: LEVOTHYROXINE SODIUM 0.025 MG TAB PO SCH (06:20)
[2018-10-28] MEDS: LEVOTHYROXINE SODIUM 0.1 MG TAB PO SCH (06:20)
[2018-10-28] MEDS: ALBUTEROL SULFATE 2.5 MG/3 ML VIAL NEB SCH ×3 (08:10→19:57)
[2018-10-28] MEDS: GABAPENTIN 400 MG CAP PO SCH ×3 (08:25→20:36)
[2018-10-28] MEDS: METHADONE HCL 10 MG TAB PO SCH (08:26)
[2018-10-28] MEDS: ENOXAPARIN SODIUM 40 MG/0.4 ML SYG SUBCU SCH (08:26)
[2018-10-28] MEDS: REMOVE OLD PATCH TOP SCH (08:27)
[2018-10-28] MEDS: NICOTINE PATCH 14 MG TD SCH (08:27)
[2018-10-28] MEDS ORDERED: SODIUM CHLORIDE 0.9% 250ML 250 ML ONE (09:34)
[2018-10-28] MEDS ORDERED: VANCOMYCIN HCL INJ 1,000 MG VIAL IVPB ONE (09:34)
[2018-10-28] MEDS: VANCOMYCIN HCL INJ 1,000 MG in SODIUM CHLORIDE 0.9% 250ML 250 ML IVPB SCH (09:44)
--- NOTE | 2018-10-28 13:31 | PN ---
SUPERVISING PHYSICIAN: Solomon James MD DATE: 10/28/18 SUBJECTIVE: The patient states she feels like her legs look better today. She still has quite a bit of swelling on the left compared to the right. Generally, her overall clinical status seems to be improved. OBJECTIVE: VITAL SIGNS: Blood pressure 125/87. Heart rate 104. Respiratory rate 18. Temperature 99.3. Oxygen saturation 98%. GENERAL: Ms. Rosado is a 48-year-old female who is in no active distress at this time. NEUROLOGIC: Alert and oriented. LUNGS: Clear to auscultation bilaterally. CARDIOVASCULAR: Regular rate and rhythm. Normal S1, S2. ABDOMEN: Soft. Positive bowel sounds. EXTREMITIES: Lower extremities with edema bilaterally, left greater than right. She does have some erythema of bilateral feet. Her great toes are more edematous than the rest of her toes. Overall, her examination is not any different than yesterday's exam. LABORATORY: White count 4.0, hemoglobin 13.9, hematocrit 40.0, platelet count 128. Sodium 133, potassium 3.9, chloride 100, CO2 25, BUN less than 5, creatinine 0.57, glucose 80, calcium 8.4, AST elevated at 148, but improved from yesterday at 168. ALT elevated at 62. ASSESSMENT: 1. Bilateral lower extremity cellulitis, mainly in the great toes, left greater than right. 2. Chronic obstructive pulmonary disease with no exacerbation. 3. Elevated liver function tests which appear to be improving. 4. History of Guillain-[place] with no acute exacerbation. 5. Chronic pain syndrome. 6. Tobacco abuse. 7. ETOH abuse. 8. Medical noncompliance. PLAN: At this point, we will need to continue the vancomycin as ordered. I did discuss the patient's MRI results with Dr. Graves who states that she needs to continue the antibiotics until she is seen at her clinic on 11/04/18. We will attempt to place her in Swing Bed status and hopefully get a PICC line placed for tomorrow for vancomycin. Otherwise, continue her other current medications. #[id number] [facility]
[2018-10-28] MEDS: SODIUM CHLORIDE 0.9% (FLUSH) 10 ML SYG IV PRN (20:36)
[2018-10-29] MEDS: LEVOTHYROXINE SODIUM 0.1 MG TAB PO SCH (06:11)
[2018-10-29] MEDS: LEVOTHYROXINE SODIUM 0.025 MG TAB PO SCH (06:11)
[2018-10-29 06:31] VITALS: BP 131/91; TEMP 98.4
[2018-10-29] MEDS ORDERED: VANCOMYCIN HCL INJ 500 MG VIAL ONE (07:41)
[2018-10-29] MEDS ORDERED: SODIUM CHLORIDE 0.9% 250ML 250 ML ONE (07:42)
[2018-10-29] MEDS ORDERED: VANCOMYCIN HCL INJ 1,000 MG VIAL IVPB ONE (07:43)
[2018-10-29] MEDS: GABAPENTIN 400 MG CAP PO SCH (08:29)
[2018-10-29] MEDS: METHADONE HCL 10 MG TAB PO SCH (08:30)
[2018-10-29] MEDS: ENOXAPARIN SODIUM 40 MG/0.4 ML SYG SUBCU SCH (08:31)
[2018-10-29] MEDS: NICOTINE PATCH 14 MG TD SCH (08:31)
[2018-10-29] MEDS: REMOVE OLD PATCH TOP SCH (08:31)
[2018-10-29] MEDS ORDERED: VANCOMYCIN HCL INJ 1,000 MG, VANCOMYCIN HCL INJ 250 MG in SODIUM CHLORIDE 0.9% 250ML 25... IVPB SCH (09:00)
--- NOTE | 2018-10-29 10:42 | DS ---
SUPERVISING PHYSICIAN: Solomon James MD ADMISSION DIAGNOSIS: 1. Cellulitis of bilateral great toes with concerns for osteomyelitis of the left foot. 2. Chronic obstructive pulmonary disease without signs or symptoms of acute exacerbation. 3. Elevated liver function tests, chronic. 4. History of Guillain-[place] with no acute exacerbation. 5. Chronic pain syndrome. 6. Tobacco abuse. 7. ETOH abuse. 8. Poor medical compliance. DISCHARGE DIAGNOSIS: 1. Cellulitis of bilateral great toes with concerns for osteomyelitis of the left foot. 2. Chronic obstructive pulmonary disease without signs or symptoms of acute exacerbation. 3. Elevated liver function tests, chronic. 4. History of Guillain-[place] with no acute exacerbation. 5. Chronic pain syndrome. 6. Tobacco abuse. 7. ETOH abuse. 8. Poor medical compliance. HISTORY OF PRESENT ILLNESS: This is a 48-year-old female patient who came to the Emergency Room with redness and swelling of both of her great toes of both feet. She has had it over one week. It is to be noted that she did have osteomyelitis approximately 6 to 7 months ago, but did not have any followup to see Dr. Graves and did not complete her outpatient antibiotics due to transportation. She has had no fever, but significant chills and both feet have been hurting. In the Emergency Room, her vital signs showed temperature 98.7, heart rate 113, blood pressure 132/97, respiratory rate 18, O2 saturation 96% on room air. Her initial WBCs were 7.9 with hemoglobin 17.5, hematocrit 50.1. Sodium 133, potassium 3.1, chloride 91, BUN less than 5, creatinine 0.73, serum osmolality 262.9, lactic acid 4.3, magnesium 1.6, total bilirubin 0.9, direct bilirubin 0.4, indirect bilirubin 0.5, AST 127, alkaline phosphatase 229. Cardiac enzymes were negative. Urinalysis showed dark yellow urine color with a small amount of urine bilirubin, 2 urobilinogen and 3+ urine bacteria. UDS was negative. Right foot x-ray showed moderate to severe right great to cellulitis, previously seen ulcer is no longer visualized, stable medial subluxation and degenerative changes of the first interphalangeal joint without acute osseous abnormality. Her left foot x-ray showed severe cellulitis about the left great toe and over the dorsum of the left foot. 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 There are no definite findings to suggest acute osteomyelitis, however, there is a high clinical suspicion for active osteomyelitis. Consider a contrast enhanced MRI. Her chest x-ray shows suspect mild chronic obstructive pulmonary disease with no acute findings. She was given some fluids in the Emergency Room as well as some vancomycin. She was also given some potassium and magnesium supplementation as well as Ketoralac. She was also given doxycycline and ceftriaxone. She was admitted to the Floor. HOSPITAL COURSE: During Ms. Rosado's hospitalization, she was placed on vancomycin per the consultation with Dr. Graves. 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 These findings could not rule out an early osteomyelitis, but there was not a diffuse osteomyelitis that was seen. I spoke with Dr. Graves and she suggested continuous vancomycin until she follows up with her in her clinic on 11/04/18. For that reason, she will remain in the hospital under Swing Bed status, so we will discharge her from Acute status at this time. She will get a PICC line for the continuous vancomycin infusions. [facility][id number] [facility]
[2018-10-29] MEDS: ALBUTEROL SULFATE 2.5 MG/3 ML VIAL NEB SCH (12:39)
[2018-10-29 12:41] VITALS: O2SAT 98
== END 2018-10-29 09:30 | disposition swing bed (61) | DRG 540 ==
LOC: ER 19:12 → MS 10-25 01:21 → OBSVTOIN 10-25 01:21
PROVIDERS: ADMIT Nurse Practitioner Acute Care; ATTEND Nurse Practitioner
DX: M86.8X7 Other osteomyelitis, ankle and foot (principal); G61.0 Guillain-Barre syndrome; L03.032 Cellulitis of left toe; L03.031 Cellulitis of right toe; D75.1 Secondary polycythemia; J44.9 Chronic obstructive pulmonary disease, unspecified; R74.8 Abnormal levels of other serum enzymes; G89.4 Chronic pain syndrome; F10.10 Alcohol abuse, uncomplicated; F17.210 Nicotine dependence, cigarettes, uncomplicated; M54.2 Cervicalgia; E03.9 Hypothyroidism, unspecified; Z91.19 Patient's noncompliance with other medical treatment and regimen; Z79.891 Long term (current) use of opiate analgesic; Z79.899 Other long term (current) drug therapy

== ENCOUNTER 2018-10-29 09:40 | Inpatient (IN) | payer MEDICARE, OTHER ==
--- NOTE | 2018-10-29 10:32 | HP ---
SUPERVISING PHYSICIAN: Solomon James MD CHIEF COMPLAINT: Bilateral great toe cellulitis. HISTORY OF PRESENT ILLNESS: This is a 48-year-old female patient who came to the Emergency Room with redness and swelling of both of her great toes of both feet. She has had it over one week. It is to be noted that she did have osteomyelitis approximately 6 to 7 months ago, but did not have any followup to see Dr. Graves and did not complete her outpatient antibiotics due to transportation. She has had no fever, but significant chills and both feet have been hurting. In the Emergency Room, her vital signs showed temperature 98.7, heart rate 113, blood pressure 132/97, respiratory rate 18, O2 saturation 96% on room air. Her initial WBCs were 7.9 with hemoglobin 17.5, hematocrit 50.1. Sodium 133, potassium 3.1, chloride 91, BUN less than 5, creatinine 0.73, serum osmolality 262.9, lactic acid 4.3, magnesium 1.6, total bilirubin 0.9, direct bilirubin 0.4, indirect bilirubin 0.5, AST 127, alkaline phosphatase 229. Cardiac enzymes were negative. Urinalysis showed dark yellow urine color with a small amount of urine bilirubin, 2 urobilinogen and 3+ urine bacteria. UDS was negative. Right foot x-ray showed moderate to severe right great to cellulitis, previously seen ulcer is no longer visualized, stable medial subluxation and degenerative changes of the first interphalangeal joint without acute osseous abnormality. Her left foot x-ray showed severe cellulitis about the left great toe and over the dorsum of the left foot. 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 There are no definite findings to suggest acute osteomyelitis, however, there is a high clinical suspicion for active osteomyelitis. Consider a contrast enhanced MRI. Her chest x-ray shows suspect mild chronic obstructive pulmonary disease with no acute findings. She was given some fluids in the Emergency Room as well as some vancomycin. She was also given doxycycline and ceftriaxone. She was admitted to the Floor. During Ms. Rosado's hospitalization, she was placed on vancomycin per the consultation with Dr. Graves. 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 These findings could not rule out an early osteomyelitis, but there was not a diffuse osteomyelitis that was seen. I spoke with Dr. Graves and she suggested continuous vancomycin until she follows up with her in her clinic on 11/04/18. For that reason, she will remain in the hospital under Swing Bed status. She will get a PICC line for the continuous vancomycin infusions. PAST MEDICAL HISTORY: 1. Chronic neck pain. 2. Chronic obstructive pulmonary disease. 3. Hypothyroidism. 4. Guillain-[place] syndrome. 5. Chronic pain followed by [facility] in [place]. PAST SURGICAL HISTORY: 1. Neck surgery. 2. Tonsillectomy. HOME MEDICATIONS: Please see the medication reconciliation record. ALLERGIES: NO KNOWN DRUG ALLERGIES. FAMILY HISTORY: Noncontributory. SOCIAL HISTORY: She is . She lives in [place]. She smokes one pack per day and has done so for several years. She drinks alcohol on a daily basis as well. It varies on the amount. REVIEW OF SYSTEMS: CONSTITUTIONAL: During her hospitalization, she had no fever or chills. No recent weight loss or weight gain. HEENT: Symptoms were negative. RESPIRATORY: Negative. CARDIOVASCULAR: Negative. GASTROINTESTINAL: Negative. GENITOURINARY: Negative. MUSCULOSKELETAL: Negative. SKIN: Cellulitis to bilateral feet, mainly great toes. ENDOCRINE: Negative. NEUROLOGIC: Negative. PHYSICAL EXAMINATION: VITAL SIGNS: Blood pressure 125/87. Heart rate 104. Respiratory rate 18. Temperature 99.3. Oxygen saturation 98%. GENERAL: Ms. Rosado is a 48-year-old female in no active distress currently. NEUROLOGIC: The patient is alert and oriented. CHEST: Lung sounds are clear to auscultation bilaterally. CARDIOVASCULAR: Regular rate and rhythm. Normal S1, S2. ABDOMEN: Soft. Positive bowel sounds. EXTREMITIES: Lower extremities show bilateral great toes erythematous with dry skin. Left great toe is a little bit larger than her right great toe. There is approximately 1 cm scabbed area on the plantar surface of the right great toe with no active drainage noted. ASSESSMENT: 1. Cellulitis of bilateral great toes with concerns for osteomyelitis of the left foot. 2. Chronic obstructive pulmonary disease without signs or symptoms of acute exacerbation. 3. Elevated liver function tests, chronic. 4. History of Guillain-[place] with no acute exacerbation. 5. Chronic pain syndrome. 6. Tobacco abuse. 7. ETOH abuse. 8. Poor medical compliance. PLAN: Continue IV vancomycin as per recommendations by Dr. Graves. This will be done at least until 11/04/18 whenever she is evaluated by Dr. Graves in her clinic. I will continue her other medications as well. [facility][id number] [facility]
[2018-10-29] MEDS ORDERED: SODIUM CHLORIDE 0.9% (FLUSH) 10 ML SYG IV PRN (11:33)
[2018-10-29] MEDS ORDERED: HYDROcodone 5MG/APAP 325MG 1 EA TAB PO PRN (11:39)
[2018-10-29] MEDS ORDERED: MAGNESIUM HYDROXIDE 30 ML UD PO PRN (11:39)
[2018-10-29] MEDS ORDERED: VANCOMYCIN PER PHARMACY IVPB SCH (12:00)
[2018-10-29] MEDS: HYDROcodone 10MG/APAP 325MG 1 EA TAB PO PRN ×2 (13:05→20:44)
[2018-10-29] MEDS: GABAPENTIN 400 MG CAP PO SCH ×2 (15:55→20:44)
[2018-10-29] MEDS: IV SET AND CAP CHANGE INJ INJ SCH (16:03)
--- NOTE | 2018-10-29 19:10 | RAD ---
EXAM: XR Chest, 1 View CLINICAL HISTORY: 48 years old and is Female; Proper placement of PICC line. TECHNIQUE: Frontal view of the chest. COMPARISON: 10/24/2018 FINDINGS: Limitations: None. Lungs: Unremarkable. No consolidation. Pleural space: Unremarkable. No pneumothorax. Heart: Unremarkable. No cardiomegaly. Mediastinum: Unremarkable. Bones/joints: Unremarkable. Tubes, lines and devices: Left percutaneous catheter terminates in the distal third of the SVC. IMPRESSION: Lines and tubes as above. Electronically signed by: Cecilia Hope MD 10/29/2018 7:07 PM CDT
[2018-10-29] MEDS ORDERED: LEVOTHYROXINE SODIUM 0.025 MG TAB ONE (19:14)
[2018-10-29] MEDS ORDERED: LEVOTHYROXINE SODIUM 0.1 MG TAB ONE (19:15)
[2018-10-29] MEDS ORDERED: NICOTINE PATCH 14 MG TD ONE (19:15)
[2018-10-30] MEDS: HYDROcodone 10MG/APAP 325MG 1 EA TAB PO PRN ×2 (03:04→19:35)
[2018-10-30] MEDS: LEVOTHYROXINE SODIUM 0.025 MG TAB PO SCH (06:14)
[2018-10-30] MEDS: LEVOTHYROXINE SODIUM 0.1 MG TAB PO SCH (06:14)
[2018-10-30] MEDS ORDERED: SODIUM CHLORIDE 0.9% 250ML 250 ML ONE (07:08)
[2018-10-30] MEDS ORDERED: VANCOMYCIN HCL INJ 500 MG VIAL ONE (07:08)
[2018-10-30] MEDS ORDERED: VANCOMYCIN HCL INJ 1,000 MG VIAL IVPB ONE (07:10)
[2018-10-30] MEDS: VANCOMYCIN HCL INJ 1,000 MG, VANCOMYCIN HCL INJ 250 MG in SODIUM CHLORIDE 0.9% 250ML 25... IVPB SCH (09:44)
[2018-10-30] MEDS: METHADONE HCL 10 MG TAB PO SCH (09:45)
[2018-10-30] MEDS: GABAPENTIN 400 MG CAP PO SCH ×3 (09:45→20:10)
[2018-10-30] MEDS: ENOXAPARIN SODIUM 40 MG/0.4 ML SYG SUBCU SCH (09:46)
[2018-10-30] MEDS: NICOTINE PATCH 14 MG TD SCH (09:46)
[2018-10-30] MEDS: REMOVE OLD PATCH TOP SCH (09:47)
[2018-10-30] MEDS: SODIUM CHLORIDE 0.9% (FLUSH) 10 ML SYG IV SCH (20:43)
[2018-10-31] MEDS: LEVOTHYROXINE SODIUM 0.1 MG TAB PO SCH (06:00)
[2018-10-31] MEDS: LEVOTHYROXINE SODIUM 0.025 MG TAB PO SCH (06:00)
[2018-10-31] MEDS: GABAPENTIN 400 MG CAP PO SCH ×3 (08:21→20:26)
[2018-10-31] MEDS: METHADONE HCL 10 MG TAB PO SCH (08:22)
[2018-10-31] MEDS: NICOTINE PATCH 14 MG TD SCH (08:24)
[2018-10-31] MEDS: SODIUM CHLORIDE 0.9% (FLUSH) 10 ML SYG IV SCH ×2 (08:24→20:26)
[2018-10-31] MEDS: ENOXAPARIN SODIUM 40 MG/0.4 ML SYG SUBCU SCH (08:24)
[2018-10-31] MEDS: REMOVE OLD PATCH TOP SCH (08:24)
[2018-10-31] MEDS ORDERED: SODIUM CHLORIDE 0.9% 250ML 250 ML ONE (09:58)
[2018-10-31] MEDS ORDERED: VANCOMYCIN HCL INJ 500 MG VIAL ONE (09:58)
[2018-10-31] MEDS ORDERED: VANCOMYCIN HCL INJ 1,000 MG VIAL IVPB ONE (09:58)
[2018-10-31] MEDS: VANCOMYCIN HCL INJ 1,000 MG, VANCOMYCIN HCL INJ 250 MG in SODIUM CHLORIDE 0.9% 250ML 25... IVPB SCH (10:05)
[2018-10-31] MEDS: HYDROcodone 10MG/APAP 325MG 1 EA TAB PO PRN ×2 (10:16→20:26)
[2018-10-31] MEDS: diphenhydrAMINE HCL 50 MG/ML VIAL IV PRN (19:34)
[2018-11-01] MEDS: LEVOTHYROXINE SODIUM 0.025 MG TAB PO SCH (06:14)
[2018-11-01] MEDS: LEVOTHYROXINE SODIUM 0.1 MG TAB PO SCH (06:14)
[2018-11-01] MEDS: NICOTINE PATCH 14 MG TD SCH (09:30)
[2018-11-01] MEDS: ENOXAPARIN SODIUM 40 MG/0.4 ML SYG SUBCU SCH (09:30)
[2018-11-01] MEDS: METHADONE HCL 10 MG TAB PO SCH (09:30)
[2018-11-01] MEDS: REMOVE OLD PATCH TOP SCH (09:30)
[2018-11-01] MEDS: GABAPENTIN 400 MG CAP PO SCH ×3 (09:30→20:34)
[2018-11-01] MEDS: SODIUM CHLORIDE 0.9% (FLUSH) 10 ML SYG IV SCH ×2 (09:31→20:46)
[2018-11-01] MEDS ORDERED: VANCOMYCIN HCL INJ 500 MG VIAL ONE (09:39)
[2018-11-01] MEDS ORDERED: VANCOMYCIN HCL INJ 1,000 MG VIAL IVPB ONE (09:40)
[2018-11-01] MEDS ORDERED: SODIUM CHLORIDE 0.9% 250ML 250 ML ONE (09:40)
[2018-11-01] MEDS: VANCOMYCIN HCL INJ 1,000 MG, VANCOMYCIN HCL INJ 250 MG in SODIUM CHLORIDE 0.9% 250ML 25... IVPB SCH (09:47)
[2018-11-01] MEDS: IV SET AND CAP CHANGE INJ INJ SCH (11:55)
[2018-11-01] MEDS: diphenhydrAMINE HCL 50 MG/ML VIAL IV PRN (19:36)
[2018-11-01] MEDS: HYDROcodone 10MG/APAP 325MG 1 EA TAB PO PRN (20:34)
[2018-11-02] MEDS: LEVOTHYROXINE SODIUM 0.025 MG TAB PO SCH (06:10)
[2018-11-02] MEDS: LEVOTHYROXINE SODIUM 0.1 MG TAB PO SCH (06:10)
[2018-11-02] MEDS ORDERED: SODIUM CHLORIDE 0.9% 250ML 250 ML ONE (08:36)
[2018-11-02] MEDS ORDERED: VANCOMYCIN HCL INJ 500 MG VIAL ONE (08:36)
[2018-11-02] MEDS ORDERED: VANCOMYCIN HCL INJ 1,000 MG VIAL IVPB ONE (08:38)
[2018-11-02] MEDS: VANCOMYCIN HCL INJ 1,000 MG, VANCOMYCIN HCL INJ 250 MG in SODIUM CHLORIDE 0.9% 250ML 25... IVPB SCH (09:31)
[2018-11-02] MEDS: METHADONE HCL 10 MG TAB PO SCH (09:32)
[2018-11-02] MEDS: ENOXAPARIN SODIUM 40 MG/0.4 ML SYG SUBCU SCH (09:32)
[2018-11-02] MEDS: GABAPENTIN 400 MG CAP PO SCH ×3 (09:32→20:58)
[2018-11-02] MEDS: REMOVE OLD PATCH TOP SCH (09:32)
[2018-11-02] MEDS: NICOTINE PATCH 14 MG TD SCH (09:32)
[2018-11-02] MEDS: SODIUM CHLORIDE 0.9% (FLUSH) 10 ML SYG IV SCH ×2 (09:33→20:58)
[2018-11-02] MEDS: HYDROcodone 10MG/APAP 325MG 1 EA TAB PO PRN ×2 (09:57→20:59)
[2018-11-02] MEDS ORDERED: hydrOXYzine HCl 25 MG TAB PO ONE (10:35)
[2018-11-02] MEDS: hydrOXYzine HCl 25 MG TAB PO PRN (20:58)
[2018-11-03] MEDS: LEVOTHYROXINE SODIUM 0.025 MG TAB PO SCH (06:12)
[2018-11-03] MEDS: LEVOTHYROXINE SODIUM 0.1 MG TAB PO SCH (06:12)
[2018-11-03] MEDS ORDERED: VANCOMYCIN HCL INJ 500 MG VIAL ONE (07:36)
[2018-11-03] MEDS ORDERED: SODIUM CHLORIDE 0.9% 250ML 250 ML ONE (07:37)
[2018-11-03] MEDS ORDERED: VANCOMYCIN HCL INJ 1,000 MG VIAL IVPB ONE (07:38)
[2018-11-03] MEDS: VANCOMYCIN HCL INJ 1,000 MG, VANCOMYCIN HCL INJ 250 MG in SODIUM CHLORIDE 0.9% 250ML 25... IVPB SCH (09:31)
[2018-11-03] MEDS: ENOXAPARIN SODIUM 40 MG/0.4 ML SYG SUBCU SCH (09:32)
[2018-11-03] MEDS: GABAPENTIN 400 MG CAP PO SCH ×3 (09:32→21:25)
[2018-11-03] MEDS: METHADONE HCL 10 MG TAB PO SCH (09:32)
[2018-11-03] MEDS: REMOVE OLD PATCH TOP SCH (09:33)
[2018-11-03] MEDS: SODIUM CHLORIDE 0.9% (FLUSH) 10 ML SYG IV SCH ×2 (09:33→21:26)
[2018-11-03] MEDS: NICOTINE PATCH 14 MG TD SCH (09:34)
--- NOTE | 2018-11-03 09:42 | PN ---
SUPERVISING PHYSICIAN: Solomon James MD DATE: 11/02/18 SUBJECTIVE: The patient is tolerating her antibiotic therapy fairly well. She has only had a little bit of continued pruritus with treatment with Atarax. She has had no further complaints. She has been afebrile. OBJECTIVE: VITAL SIGNS: Temperature 98.3, pulse 97, blood pressure 113/73, respirations 18, saturation 90 to 98% on room air at rest. Weight is stable. GENERAL: The patient is resting comfortably, appears to be in no acute disease. She is alert. CHEST: Lungs are clear to auscultation bilaterally. HEART: Regular rate and rhythm. ABDOMEN: Soft, non-tender, positive bowel sounds. EXTREMITIES: Continued lower extremities with some bilateral erythematous dry skin involving the left great toe and right toe with left being a little more than the right. There continues to be some scabbed areas on the plantar surface on the right toe but no obvious drainage is noted. NEUROLOGIC: She is awake, alert, and oriented x3. ASSESSMENT: 1. Cellulitis of bilateral great toes with concerns for osteomyelitis of the left foot, with the patient continued on vancomycin. 2. Chronic obstructive pulmonary disease without signs or symptoms of acute exacerbation. 3. Elevated liver function tests, chronic. 4. 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 5. Chronic pain syndrome. 6. Tobacco abuse. 7. ETOH abuse. 8. Poor medical compliance. LABORATORY: She has only had a vancomycin trough which was done on 10/31 and was 12. The only x-ray she had was a chest x-ray on admission to [facility] which per radiology interpretation showed left cutaneous catheter terminating within the distal third of the SVC. Lungs were unremarkable. No consolidations, no pneumothorax. PLAN: Will continue with current antibiotic therapy plan and with vancomycin per pharmacy protocol. She has an appointment on Sunday to see Dr. Graves to be reevaluated. Will continue those medications until she sees Dr. Graves, as well as she has an appointment with a pain physician I believe in [place] [place]. She can either go on pass for those two appointments or if not discharged, she can certainly be discharged from [facility]. Until we transition her to outpatient management, we will continue to monitor and treat as needed. #[id number] [facility]
[2018-11-03] MEDS: hydrOXYzine HCl 25 MG TAB PO PRN ×2 (11:32→21:26)
[2018-11-03] MEDS: HYDROcodone 10MG/APAP 325MG 1 EA TAB PO PRN (21:25)
[2018-11-03 21:59] VITALS: O2SAT 100
[2018-11-03] MEDS: HYDROCORTISONE 1% CREAM 30 GM TUBE TOP PRN (23:12)
[2018-11-04] MEDS: LEVOTHYROXINE SODIUM 0.025 MG TAB PO SCH (06:08)
[2018-11-04] MEDS: LEVOTHYROXINE SODIUM 0.1 MG TAB PO SCH (06:08)
[2018-11-04] MEDS ORDERED: VANCOMYCIN HCL INJ 500 MG VIAL ONE (07:26)
[2018-11-04] MEDS ORDERED: SODIUM CHLORIDE 0.9% 250ML 250 ML ONE (07:26)
[2018-11-04] MEDS ORDERED: VANCOMYCIN HCL INJ 1,000 MG VIAL IVPB ONE (07:27)
[2018-11-04] MEDS: NICOTINE PATCH 14 MG TD SCH (08:08)
[2018-11-04] MEDS: METHADONE HCL 10 MG TAB PO SCH (08:08)
[2018-11-04] MEDS: VANCOMYCIN HCL INJ 1,000 MG, VANCOMYCIN HCL INJ 250 MG in SODIUM CHLORIDE 0.9% 250ML 25... IVPB SCH (08:09)
[2018-11-04] MEDS: REMOVE OLD PATCH TOP SCH (08:16)
[2018-11-04] MEDS: SODIUM CHLORIDE 0.9% (FLUSH) 10 ML SYG IV SCH ×2 (08:17→20:45)
[2018-11-04] MEDS: GABAPENTIN 400 MG CAP PO SCH ×3 (08:17→20:45)
[2018-11-04] MEDS: ENOXAPARIN SODIUM 40 MG/0.4 ML SYG SUBCU SCH (08:17)
[2018-11-04] MEDS: HYDROcodone 10MG/APAP 325MG 1 EA TAB PO PRN ×2 (09:28→17:25)
[2018-11-04] MEDS: hydrOXYzine HCl 25 MG TAB PO PRN ×2 (09:28→19:26)
[2018-11-04] MEDS: IV SET AND CAP CHANGE INJ INJ SCH (16:04)
[2018-11-04] MEDS: FLUCONAZOLE 100 MG TAB PO SCH (19:23)
[2018-11-04] MEDS ORDERED: SODIUM CHLORIDE 0.9% 100ML 100 ML IVPB ONE (21:19)
[2018-11-04] MEDS ORDERED: DAPTOMYCIN 500 MG VIAL IVPB ONE (21:20)
[2018-11-04] MEDS: SODIUM CHLORIDE 0.9% IVPB SCH (21:47)
[2018-11-04] MEDS: DAPTOMYCIN IVPB SCH (21:47)
[2018-11-05] MEDS: TERBINAFINE 1% TOP SCH ×3 (03:13→20:53)
[2018-11-05] MEDS: LEVOTHYROXINE SODIUM 0.025 MG TAB PO SCH (05:55)
[2018-11-05] MEDS: LEVOTHYROXINE SODIUM 0.1 MG TAB PO SCH (05:55)
[2018-11-05] MEDS: FLUCONAZOLE 100 MG TAB PO SCH (08:24)
[2018-11-05] MEDS: ENOXAPARIN SODIUM 40 MG/0.4 ML SYG SUBCU SCH (08:24)
[2018-11-05] MEDS: METHADONE HCL 10 MG TAB PO SCH (08:24)
[2018-11-05] MEDS: NICOTINE PATCH 14 MG TD SCH (08:24)
[2018-11-05] MEDS: GABAPENTIN 400 MG CAP PO SCH ×3 (08:25→20:45)
[2018-11-05] MEDS: SODIUM CHLORIDE 0.9% (FLUSH) 10 ML SYG IV SCH ×2 (08:26→20:45)
[2018-11-05] MEDS: REMOVE OLD PATCH TOP SCH (08:26)
[2018-11-05] MEDS ORDERED: SODIUM CHLORIDE 0.9% 100ML 100 ML IVPB ONE (20:05)
[2018-11-05] MEDS ORDERED: DAPTOMYCIN 500 MG VIAL IVPB ONE (20:06)
[2018-11-05] MEDS: HYDROCORTISONE 1% CREAM 30 GM TUBE TOP PRN (20:52)
[2018-11-05] MEDS: HYDROcodone 10MG/APAP 325MG 1 EA TAB PO PRN (20:54)
[2018-11-05] MEDS: DAPTOMYCIN IVPB SCH (21:08)
[2018-11-05] MEDS: SODIUM CHLORIDE 0.9% IVPB SCH (21:08)
[2018-11-06] MEDS: LEVOTHYROXINE SODIUM 0.025 MG TAB PO SCH (06:12)
[2018-11-06] MEDS: LEVOTHYROXINE SODIUM 0.1 MG TAB PO SCH (06:12)
[2018-11-06] MEDS: FLUCONAZOLE 100 MG TAB PO SCH (09:01)
[2018-11-06] MEDS: GABAPENTIN 400 MG CAP PO SCH ×2 (09:01→15:12)
[2018-11-06] MEDS: ENOXAPARIN SODIUM 40 MG/0.4 ML SYG SUBCU SCH (09:02)
[2018-11-06] MEDS: METHADONE HCL 10 MG TAB PO SCH (09:02)
[2018-11-06] MEDS: REMOVE OLD PATCH TOP SCH (09:03)
[2018-11-06] MEDS: NICOTINE PATCH 14 MG TD SCH (09:03)
[2018-11-06] MEDS: SODIUM CHLORIDE 0.9% (FLUSH) 10 ML SYG IV SCH (09:06)
[2018-11-06] MEDS: TERBINAFINE 1% TOP SCH (09:54)
[2018-11-06 10:33] VITALS: BP 150/80; TEMP 99
[2018-11-06] MEDS ORDERED: SODIUM CHLORIDE 0.9% 100ML 100 ML IVPB ONE (15:03)
[2018-11-06] MEDS ORDERED: DAPTOMYCIN 500 MG VIAL IVPB ONE (15:03)
[2018-11-06] MEDS: DAPTOMYCIN IVPB SCH (15:12)
[2018-11-06] MEDS: SODIUM CHLORIDE 0.9% IVPB SCH (15:12)
--- NOTE | 2018-11-19 08:14 | DS ---
SUPERVISING PHYSICIAN: Servando Markham MD ADMISSION DIAGNOSIS: 1. Cellulitis of bilateral great toes with concerns for osteomyelitis of the left foot. 2. Chronic obstructive pulmonary disease without signs or symptoms of acute exacerbation. 3. Elevated liver function tests, chronic. 4. 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 5. Chronic pain syndrome. 6. Tobacco abuse. 7. ETOH abuse. 8. Poor medical compliance. DISCHARGE DIAGNOSIS: 1. Cellulitis of bilateral great toes with concerns for osteomyelitis of the left toe with the patient showing an allergy to vancomycin and changed to Cubicin for 72 hours and showing no complications at discharge. 2. Onychomycosis of bilateral great toes an antifungals, both oral and topical, needing followup with podiatry. 3. Chronic obstructive pulmonary disease without signs or symptoms of acute exacerbation. 4. Elevated liver function tests, chronic. 5. 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 6. Chronic pain syndrome. 7. Tobacco abuse. 8. ETOH abuse. 9. Poor medical compliance. REASON FOR HOSPITALIZATION: This is a 48-year-old female patient who came to the Emergency Room with redness and swelling of both of her great toes of both feet. She has had it over one week. It is to be noted that she did have osteomyelitis approximately 6 to 7 months ago, but did not have any followup to see Dr. Graves and did not complete her outpatient antibiotics due to transportation. She has had no fever, but significant chills and both feet have been hurting. In the Emergency Room, her vital signs showed temperature 98.7, heart rate 113, blood pressure 132/97, respiratory rate 18, O2 saturation 96% on room air. Her initial WBCs were 7.9 with hemoglobin 17.5, hematocrit 50.1. Sodium 133, potassium 3.1, chloride 91, BUN less than 5, creatinine 0.73, serum osmolality 262.9, lactic acid 4.3, magnesium 1.6, total bilirubin 0.9, direct bilirubin 0.4, indirect bilirubin 0.5, AST 127, alkaline phosphatase 229. Cardiac enzymes were negative. Urinalysis showed dark yellow urine color with a small amount of urine bilirubin, 2 urobilinogen and 3+ urine bacteria. UDS was negative. Right foot x-ray showed moderate to severe right great to cellulitis, previously seen ulcer is no longer visualized, stable medial subluxation and degenerative changes of the first interphalangeal joint without acute osseous abnormality. Her left foot x-ray showed severe cellulitis about the left great toe and over the dorsum of the left foot. 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 There are no definite findings to suggest acute osteomyelitis, however, there is a high clinical suspicion for active osteomyelitis. Consider a contrast enhanced MRI. Her chest x-ray shows suspect mild chronic obstructive pulmonary disease with no acute findings. She was given some fluids in the Emergency Room as well as some vancomycin. She was also given doxycycline and ceftriaxone. She was admitted to the Floor. During Ms. Rosado's hospitalization, she was placed on vancomycin per the consultation with Dr. Graves. 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 These findings could not rule out an early osteomyelitis, but there was not a diffuse osteomyelitis that was seen. I spoke with Dr. Graves and she suggested continuous vancomycin until she follows up with her in her clinic on 11/04/18. For that reason, she will remain in the hospital under [facility] status. She will get a PICC line for the continuous vancomycin infusions. LABORATORY: The only laboratories studies she had were vancomycin troughs which showed 12.0 on 10/31/18 and on 11/05/18 was 10.6. HOSPITAL COURSE: Ms. Rosado was admitted to [facility] on 10/29/18 for antibiotic therapy. She was saw Dr. Graves on 11/02/18 and due to concern for allergy to vancomycin, Dr. Graves recommended she be switched to Cubicin for 3 days and to discharge home to followup with Dr. Graves. She was also started on antifungals, both oral and topically, for treatment of onychomycosis. She was showing good response to treatment and it was felt she was stable enough to continue with outpatient management. PLAN: Ms. Rosado was discharged on 11/06/18 with instructions to followup with Dr. Graves on 12/09/18. She was to continue antibiotic therapy as directed as noted below and to take all medications as directed. She was to resume her usual diet as tolerated, increase activities as tolerated and to followup with podiatry as well. MEDICATIONS AT DISCHARGE: 1. Augmentin 875 mg twice daily for 21 days, no refills. 2. Doxycycline 100 mg twice daily for 21 days, no refills. 3. Fluconazole 200 mg daily for 18 days, no refills. 4. Lamisil cream to apply topically twice daily for 25 days, #4 tubes, no refill. All other medications prior to discharge were continued. DISPOSITION: The patient was discharged home. CONDITION AT DISCHARGE: Stable and improved. #[id number] [facility]
== END 2018-11-06 17:15 | disposition home or self-care (01) | DRG 540 ==
LOC: MS 09:40
PROVIDERS: ADMIT Nurse Practitioner; ATTEND Nurse Practitioner Family
PROC: 02HV33Z Insertion of Infusion Device into Superior Vena Cava, Percutaneous Approach (ICD-10-PCS; principal; 2018-10-29)
DX: M86.8X7 Other osteomyelitis, ankle and foot (principal); G61.0 Guillain-Barre syndrome; L03.031 Cellulitis of right toe; L03.032 Cellulitis of left toe; J44.9 Chronic obstructive pulmonary disease, unspecified; R79.89 Other specified abnormal findings of blood chemistry; G89.4 Chronic pain syndrome; F10.10 Alcohol abuse, uncomplicated; Z91.19 Patient's noncompliance with other medical treatment and regimen; F17.210 Nicotine dependence, cigarettes, uncomplicated; B35.1 Tinea unguium; M54.2 Cervicalgia; E03.9 Hypothyroidism, unspecified

== ENCOUNTER → 2018-12-25 | Outpatient (CLI) | payer MEDICARE, MEDICAID ==
--- NOTE | 2018-12-25 19:09 | RAD ---
EXAM: XR Right Forearm, 2 Views CLINICAL HISTORY: FOREARM PAIN TECHNIQUE: Frontal and lateral views of the right forearm. COMPARISON: No relevant prior studies available. FINDINGS: Limitations: None. Bones/joints: There is an oblique fracture of the ulnar shaft at the junction of the middle and distal thirds displaced about one shaft width lateral. Ulnar minus variance. No dislocation. Soft tissues: Soft tissue swelling present. IMPRESSION: Acute fracture distal ulnar shaft. Electronically signed by: Cecilia Hope MD 12/25/2018 7:07 PM CDT
--- NOTE | 2018-12-25 19:11 | RAD ---
EXAM: XR Right Wrist Complete, 3 or More Views CLINICAL HISTORY: WRIST PAIN TECHNIQUE: Frontal, lateral and oblique views of the right wrist. COMPARISON: No relevant prior studies available. FINDINGS: Limitations: None. Bones/joints: All minus variance. There is a fracture of the distal shaft of the ulna with lateral displacement. Trabecular pattern and cortical surfaces of the scaphoid are intact. No dislocation. Soft tissues: Soft tissue swelling present. No radiopaque foreign body. IMPRESSION: Acute fracture distal ulna. Electronically signed by: Cecilia Hope MD 12/25/2018 7:09 PM CDT
== END ==
LOC: RAD 18:14
PROVIDERS: ATTEND Nurse Practitioner Family
DX: S52.601A Unspecified fracture of lower end of right ulna, initial encounter for closed fracture (principal)

== ENCOUNTER → 2019-01-01 | Outpatient (CLI) | payer MEDICARE, MEDICAID ==
--- NOTE | 2019-01-01 09:29 | RAD ---
EXAM DESCRIPTION: Forearm,Right CLINICAL HISTORY: 48 years Female, PAIN IN RIGHT FOREARM COMPARISON: December 25, 2018. TECHNIQUE: AP and lateral radiographs of the right forearm. FINDINGS: The bony details are obscured by the overlying cast. Again noted is a mildly displaced spiral fracture through the distal shaft of the radius. No significant interval callus formation noted. Again noted is approximately 1.6 cm overriding of the fracture fragments. The proximal and distal radioulnar joint is intact. Slight dorsal displacement of the proximal fracture fragment noted on the lateral radiograph. IMPRESSION: 1. Mildly displaced distal ulnar shaft fracture, appears stable from prior exam with interval placement of overlying cast. No interval callus formation noted at the fracture site. Electronically signed by: Pete Rod MD 01/01/2019 9:28 AM CDT
--- NOTE | 2019-01-01 09:30 | RAD ---
EXAM DESCRIPTION: Elbow,Right 3 Views CLINICAL HISTORY: 48 years Female, PAIN IN RIGHT ELBOW COMPARISON: Right forearm series December 25, 2018 FINDINGS: 3 views of the right elbow were obtained. Artifact from superimposed material limits evaluation of bony detail. No acute fracture or malalignment. No joint effusion. No suspicious radiopaque foreign body or soft tissue gas. IMPRESSION: Negative exam. Electronically signed by: Jake Muhammad MD 01/01/2019 9:29 AM CDT
--- NOTE | 2019-01-01 09:38 | RAD ---
EXAM DESCRIPTION: Wrist,Right 3 Views CLINICAL HISTORY: 48 years Female, PAIN IN RIGHT WRIST COMPARISON: December 25, 2018 FINDINGS: 3 views of the right wrist were obtained. Artifact from superimposed material limits evaluation of bony detail. Again seen is a spiral type distal right radial diaphyseal fracture with lateral displacement, unchanged from the previous radiograph. No callus formation. No new fracture or malalignment. No suspicious radiopaque foreign body or soft tissue gas. IMPRESSION: Minimally displaced, nonunited distal right radial fracture, unchanged from December 25, 2018. No new abnormality. Electronically signed by: Jake Muhammad MD 01/01/2019 9:36 AM CDT
== END ==
LOC: RAD 08:32
PROVIDERS: ATTEND Orthopaedic Surgery
DX: S52.511A Displaced fracture of right radial styloid process, initial encounter for closed fracture (principal); S52.611A Displaced fracture of right ulna styloid process, initial encounter for closed fracture

== ENCOUNTER → 2019-01-16 | Outpatient (CLI) | payer MEDICARE, MEDICAID ==
--- NOTE | 2019-01-17 10:36 | RAD ---
EXAM DESCRIPTION: Forearm,Right: CR/DR CLINICAL HISTORY: 48 years Female, PAIN COMPARISON: Right forearm 01/01/2019. TECHNIQUE/FINDINGS: 2 views AP lateral right forearm. Immobilization material has been removed. Slightly displaced oblique fracture of the distal right ulna. Stable since the prior study. Callus formation around the fracture site. Radiocarpal and ulnocarpal joints are intact. IMPRESSION: Healing mildly displaced fracture distal right radius with stable position of components and callus formation. Immobilization material has been removed. Electronically signed by: Christiano Pichardo MD 01/17/2019 10:34 AM CDT
== END ==
LOC: RAD 10:08
PROVIDERS: ATTEND Orthopaedic Surgery
DX: S52.501A Unspecified fracture of the lower end of right radius, initial encounter for closed fracture (principal)

== ENCOUNTER → 2019-03-18 | Outpatient (CLI) | payer MEDICARE, MEDICAID ==
--- NOTE | 2019-03-19 14:24 | US ---
EXAM DESCRIPTION: Extremity,Lower Oswaldo Arteries: Ultrasound. CLINICAL HISTORY: Subacute osteomyelitis, multiple sites COMPARISON: None. TECHNIQUE: Doppler evaluation of the bilateral lower extremity arterial flow waveforms and velocities. FINDINGS: Arterial waveforms in the right lower extremity are multiphasic from the right common femoral artery through the right dorsalis pedis artery. Arterial waveforms in the left lower extremity are multiphasic from the left common femoral artery to the left dorsalis pedis artery.. Comments: No significant amount of plaque was seen. IMPRESSION: Bilateral lower extremity arterial Doppler evaluation showing no evidence of significant atherosclerotic occlusive disease. Electronically signed by: Christiano Pichardo MD 03/19/2019 2:22 PM [facility]
== END | disposition home or self-care (01) ==
LOC: US 14:21
PROVIDERS: ATTEND Surgery
DX: M86.2 Subacute osteomyelitis (principal)

== ENCOUNTER 2019-05-22 15:36 | Observation (INO) | payer MEDICARE, MEDICAID ==
[2019-05-22] MEDS ORDERED: PROMETHAZINE HCL INJ 25 MG in SODIUM CHLORIDE 0.9% 50ML 50 ML IVPB ONE (16:00)
[2019-05-22] MEDS ORDERED: SODIUM CHLORIDE 0.9% 1000ML 1,000 ML IVS ONE ×2 (16:00→20:28)
[2019-05-22] MEDS ORDERED: FOLIC ACID INJ 5 MG/ML VIAL IV ONE (16:00)
[2019-05-22] MEDS ORDERED: THIAMINE HCL INJ 100 MG/ML VIAL IV ONE (16:01)
--- NOTE | 2019-05-22 16:35 | ED.PDOC ---
History of Present Illness - General Chief Complaint: General Time Seen by Provider: 05/22/19 15:58 Source: patient Exam Limitations: no limitations - History of Present Illness Initial Comments: The patient is a 49-year-old female presenting to the emergency room primarily due to running out of her pain medications. The patient ran out of her methadone and hydrocodone when she was reportedly unable to make it to her pain management doctor about a week ago. She started having nausea and vomiting about 4 days ago. She reports pain in her feet is unbearable. She has no pain medications. She does feel dehydrated. She did have any time she got up. No definite fevers. The patient does have a history of alcohol abuse. She has had chronic fungal and bacterial infections of the bilateral feet over the last couple of years. The last time she saw infectious disease was about 6 months ago. The patient also reports she has significant hypothyroidism but has not been on medications for that and 3 to 4 months. Patient is obviously not taking care of her self. The patient has significant thickening of the skin surrounding her feet bilaterally with cracks and the thickened skin. There is a ulceration to the bottom of the first toe of the left foot that is approximately the size of a quarter. There is no real extending proximal erythema. She does have pain in her feet. She also has chronic neuropathic pain. She reports that she still has some of her gabapentin for that but she has been throwing it up. The patient denies any history of hepatitis however upon examination of her abdomen, her liver and her spleen do feel enlarged. Mucous membranes are fairly dry. The patient is a very heavy alcohol drinker. Alcohol withdrawal is likely contributed to the nausea and vomiting over the last 3 days as well. Timing/Duration: 1 week, constant, getting worse Severity: moderate Improving Factors: medication Worsening Factors: eating, movement Associated Symptoms: loss of appetite, malaise, nausea/vomiting, weakness Allergies/Adverse Reactions: Allergies NO KNOWN ALLERGY Allergy (Verified 07/09/17 19:45) Home Medications: Ambulatory Orders Gabapentin 1,200 mg PO TID 03/25/18 HYDROcodone 10MG/APAP 325MG [[place] 10/325] 1 ea PO Q4HR PRN 03/25/18 Methadone HCl 10 mg PO DAILY 03/25/18 Levothyroxine Sodium 0.125 mg PO DAILY 10/25/18 Enoxaparin Sodium [Lovenox] 40 mg SUBCU DAILY syg 10/29/18 HYDROcodone 5MG/APAP 325MG [[place] 5/325] 1 ea PO Q4H PRN tab 10/29/18 Magnesium Hydroxide [Milk Of Magnesia] 30 ml PO DAILY PRN ud 10/29/18 Vancomycin Per Pharmacy 1 ea INJ ONCE each 10/29/18 Amoxicillin & Pot Clavulanate [Augmentin Tab] 875 mg PO BID 21 Days #42 tab 11/06/18 Doxycycline Hyclate [Vibramycin] 100 mg PO BID 21 Days #42 cap 11/06/18 Fluconazole [Diflucan Tab] 200 mg PO DAILY 18 Days #18 tab 11/06/18 Terbinafine 1% Cream [Lamisil Cream] 1 applic TOP BID 25 Days #4 tube 11/06/18 Review of Systems - Review of Systems Constitutional: States: malaise, weakness - Generalized EENTM: States: no symptoms reported Respiratory: States: no symptoms reported Cardiology: States: no symptoms reported Gastrointestinal/Abdominal: States: nausea, vomiting Genitourinary: States: no symptoms reported Musculoskeletal: States: muscle stiffness Skin: States: no symptoms reported Neurological: States: anxiety Endocrine: States: increased thirst Hematologic/Lymphatic: States: no symptoms reported All other Systems: No Change from Baseline Past Medical History (General) - Patient Medical History Hx Seizures: No Hx Stroke: No Hx Dementia: No Hx Asthma: No Hx of COPD: No Hx Cardiac Disorders: No Hx Congestive Heart Failure: No Hx Pacemaker: No Hx Hypertension: No Hx Thyroid Disease: Yes - Hypothyroidism Hx Diabetes: No Hx Gastroesophageal Reflux: No Hx Renal Disease: No Hx Cancer: No Hx of HIV: No Hx Hepatitis C: No Hx MRSA: No Surgical History: tonsillectomy - Vaccination History Hx Tetanus, Diphtheria Vaccination: No Hx Influenza Vaccination: No Hx Pneumococcal Vaccination: No - Social History Hx Tobacco Use: Yes Hx Chewing Tobacco Use: No Hx Alcohol Use: No Hx Substance Use: No Hx Substance Use Treatment: No Hx Depression: No Hx Physical Abuse: No Hx Emotional Abuse: No Hx Suspected Abuse: No - Female History Patient is a Female of Child Bearing Age (10 -59 yrs old): Yes Patient : No Family Medical History - Family History Mother Family History: Unknown Living Status: Still Living Hx Family Asthma: No Hx Family Congestive Heart Failure: No Hx Family Hypertension: No Hx Family Stroke: No Hx Cardiac Disease: No Hx Family Diabetes: No Hx Family Cancer: Yes - melanoma Hx Family;Other: hyperthyroid Physical Exam - Physical Exam General Appearance: Alert, Unkempt Eye Exam: bilateral normal Ears, Nose, Throat: hearing grossly normal, normal pharynx - Mucous membranes are fairly dry Neck: non-tender, supple Respiratory: lungs clear, normal breath sounds, no respiratory distress, no accessory muscle use Cardiovascular/Chest: normal peripheral pulses, regular rate, rhythm, no edema Peripheral Pulses: radial,right: 2+, radial,left: 2+ Gastrointestinal/Abdominal: non tender - Significant hepatosplenomegaly, soft Rectal Exam: deferred Back Exam: no vertebral tenderness Extremity: normal range of motion, no calf tenderness, other - Significant thickening of the skin surrounding the feet. There are cracks through this thickened skin that have oozed blood. Neurologic: neon installer II-XII nml as tested, oriented x 3, other - She is significantly drowsy. Affect is flat. Speech is a little bit slurred. Skin Exam: other - See above Comments: Vital Signs - 24 hr 05/22/19 15:49 Temperature 99.7 F H Pulse Rate [ 118 H Left Radial] Respiratory 22 Rate Blood Pressure 119/85 [Left Arm] O2 Sat by Pulse 98 Oximetry Progress - Progress Progress: 05/22/19 21:41 The patient is a 49-year-old female in very poor general condition primarily due to noncompliance and alcoholism. The most acute problem is the nausea and vomiting. This is most likely related to gastritis triggered initially likely by opiate withdrawal followed by alcohol withdrawal. She has responded well to a dose of Phenergan and a dose of Ativan here. No evidence of any altered mental status, delirium tremens or seizures. She has received folate and thiamine here along with IV fluids. The patient does have an elevated MCV indicating folate or B12 deficiency. She will likely need a mixed B12 supplement as an outpatient. The patient has also been noncompliant with her Synthroid. She was given a dose of 175 mcg here tonight. She will need to be restarted on Synthroid and have this followed. Obviously this complicates everything else in the picture. The patient has hypomagnesemia and was given 4 g of magnesium tonight. This w ill need to be followed. The patient has hypokalemia and received 2 doses of 40 mEq each of KCl elixir. This will also need to be followed. 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 This is a new finding but obviously not a new symptom for the patient. She will need to follow-up with orthopedics for this. Additionally the patient appears to have a descending colitis versus inflammatory bowel disease. She has been started on Zosyn here and she can be continued on Augmentin as an outpatient for this as well as the possible small right lower lobe pneumonia noted on ct. Flagyl should be avoided secondary to alcohol intake. The patient has chronic fungal infection of the feet along with peripheral neuropathy and chronic skin lesions/ulceration of the feet. She does need to follow-up with her infectious disease specialist. There does not appear to be a ascending infection at this time. The feet were cleaned and dressed here tonight. Again this does need to be followed up with her infectious disease specialist and her primary care doctor. Additionally the patient may benefit as an outpatient for a GI referral for bowel changes noted on ct. Additionally she does need follow-up CT scans in 6 to 12 months for a pulmonary nodule. The patient will need to be followed overnight for further evidence of alcohol withdrawal, recurrent nausea and vomiting. If the patient is continuing to have nausea and vomiting tomorrow morning, then a repeat exam and possibly a right upper quadrant ultrasound may be beneficial. The patient has tested negative for influenza here tonight. Admit for continued care of the above numerous problems. - Results/Orders Results/Orders: CT scan of the abdomen and pelvis without contrast shows possibility of a small right lower lobe pneumonia, right-sided avascular femoral head necrosis, colitis versus inflammatory bowel disease, and a fatty liver. No obvious abnormality of the gallbladder. No perforation. No obstruction. See report for details. The patient does have a 6 mm left lower lobe nodule but it is recommended she have a repeat scan for in 6 to 12 months. Acute abdominal series failed to show other acute pathology. Laboratory Tests 05/22/19 05/22/19 05/22/19 16:30 16:30 16:30 WBC 8.9 RBC 3.12 L Hgb 12.0 Hct 34.3 L MCV 110.0 H MCH 38.4 H MCHC 34.9 RDW 15.8 H Plt Count 227 MPV 8.1 Absolute Neuts (auto) 7.40 H Absolute Lymphs (auto) 1.10 Absolute Monos (auto) 0.30 Absolute Eos (auto) 0.10 Absolute Basos (auto) 0.00 Neutrophils % 82.7 H Lymphocytes % 12.4 L Monocytes % 3.5 Monocytes % (Manual) Not Reportable Eosinophils % 0.9 L Basophils % 0.5 Platelet Estimate Normal Macrocytosis 2+ PT 13.0 H INR 1.31 H PTT (SP) 24.1 Sodium 130 L Potassium 2.8 L Chloride 87 L Carbon Dioxide 27 Anion Gap 18.8 H BUN 6 L Creatinine 0.59 L BUN/Creatinine Ratio 10.2 Random Glucose 83 Serum Osmolality 257.6 L Lactic Acid Calcium 7.6 L Magnesium 1.3 L Total Bilirubin 3.4 H* AST 118 H ALT 32 Alkaline Phosphatase 280 H Creatine Kinase 81 CK-MB (CK-2) 3.2 CK-MB (CK-2) % Not Reportable Troponin I < 0.02 B-Natriuretic Peptide 42.1 Serum Total Protein 6.8 Albumin 2.9 L Globulin 3.9 H Albumin/Globulin Ratio 0.7 L Amylase 44 Lipase 25 TSH > 49.10 H Ethyl Alcohol 05/22/19 05/22/19 16:30 16:30 WBC RBC Hgb Hct MCV MCH MCHC RDW Plt Count MPV Absolute Neuts (auto) Absolute Lymphs (auto) Absolute Monos (auto) Absolute Eos (auto) Absolute Basos (auto) Neutrophils % Lymphocytes % Monocytes % Monocytes % (Manual) Eosinophils % Basophils % Platelet Estimate Macrocytosis PT INR PTT (SP) Sodium Potassium Chloride Carbon Dioxide Anion Gap BUN Creatinine BUN/Creatinine Ratio Random Glucose Serum Osmolality Lactic Acid 4.3 H* Calcium Magnesium Total Bilirubin AST ALT Alkaline Phosphatase Creatine Kinase CK-MB (CK-2) CK-MB (CK-2) % Troponin I B-Natriuretic Peptide Serum Total Protein Albumin Globulin Albumin/Globulin Ratio Amylase Lipase TSH Ethyl Alcohol < 5.40 Departure - Departure Clinical Impression: Hyponatremia, Hypokalemia, Hypomagnesemia, Dehydration, Increased MCV, Avascular necrosis of bone of right hip, Colitis Alcohol withdrawal Qualifiers: Complication of substance-induced condition: with unspecified complication Qualified Code(s): F10.239 - Alcohol dependence with withdrawal, unspecified Gastritis Qualifiers: Gastritis type: alcoholic Chronicity: acute Gastritis bleeding: without bleeding Qualified Code(s): K29.20 - Alcoholic gastritis without bleeding Hypothyroidism Qualifiers: Hypothyroidism type: acquired Qualified Code(s): E03.9 - Hypothyroidism, unspecified Disposition: Admit Patient Departure Forms: ED Discharge - Pt. Copy, Patient Portal Self Enrollment Referrals: Solomon James MD [Primary Care Provider] - 1-2 Weeks Home Medications: Ambulatory Orders Gabapentin 1,200 mg PO TID 03/25/18 HYDROcodone 10MG/APAP 325MG [[place] 10/325] 1 ea PO Q4HR PRN 03/25/18 Methadone HCl 10 mg PO DAILY 03/25/18 Levothyroxine Sodium 0.125 mg PO DAILY 10/25/18 Enoxaparin Sodium [Lovenox] 40 mg SUBCU DAILY syg 10/29/18 HYDROcodone 5MG/APAP 325MG [[place] 5/325] 1 ea PO Q4H PRN tab 10/29/18 Magnesium Hydroxide [Milk Of Magnesia] 30 ml PO DAILY PRN ud 10/29/18 Vancomycin Per Pharmacy 1 ea INJ ONCE each 10/29/18 Amoxicillin & Pot Clavulanate [Augmentin Tab] 875 mg PO BID 21 Days #42 tab 11/06/18 Doxycycline Hyclate [Vibramycin] 100 mg PO BID 21 Days #42 cap 11/06/18 Fluconazole [Diflucan Tab] 200 mg PO DAILY 18 Days #18 tab 11/06/18 Terbinafine 1% Cream [Lamisil Cream] 1 applic TOP BID 25 Days #4 tube 11/06/18 Decision To Admit - Decistion To Admit Decision to Admit Reason: Medical Nature Decision to Admit Date: 05/22/19 Decision to Admit Time: 21:52
[2019-05-22] MEDS ORDERED: PROMETHAZINE HCL INJ 25 MG/ML VIAL ONE (17:08)
[2019-05-22] MEDS ORDERED: SODIUM CHLORIDE 0.9% 50ML 50 ML ONE (17:08)
--- NOTE | 2019-05-22 17:16 | RAD ---
EXAM: XR Abdomen, 2 Views and XR Chest, 1 View CLINICAL HISTORY: nv 4 days TECHNIQUE: Frontal view of the chest, frontal view of the abdomen/pelvis and upright or decubitus view of the abdomen. COMPARISON: No relevant prior studies available. FINDINGS: Lungs: Unremarkable. No consolidation. Pleural space: Unremarkable. No pneumothorax. Heart: Unremarkable. No cardiomegaly. Mediastinum: Unremarkable. Intraperitoneal space: No free air. Gastrointestinal tract: Unremarkable. No dilation. Bones/joints: Unremarkable. Other findings: Hepatomegaly. IMPRESSION: 1. Hepatomegaly. 2. Nonspecific, nonobstructive intestinal gas pattern. Electronically signed by: Cecilia Hope MD 05/22/2019 5:15 PM [facility]
[2019-05-22] MEDS ORDERED: MAGNESIUM SULFATE PREMIX 4GM 4 GM in PREMIX BAG 1 BAG IVPB ONE (17:21)
[2019-05-22] MEDS ORDERED: POTASSIUM CHLORIDE ELIXIR 20 MEQ/15 ML UD PO ONE ×2 (17:21→21:12)
[2019-05-22] MEDS ORDERED: MAGNESIUM SULFATE PREMIX 4GM 50 ML IVPB ONE (17:49)
[2019-05-22] MEDS ORDERED: LEVOTHYROXINE SODIUM 0.1 MG, LEVOTHYROXINE SODIUM 0.075 MG PO ONE ×2 (18:00)
[2019-05-22] MEDS ORDERED: NEOMYCIN-BACITRACIN-POLYMYXIN 0.9 GM UD TOP ONE ×2 (18:46→18:51)
[2019-05-22] MEDS ORDERED: LEVOTHYROXINE SODIUM 0.1 MG TAB ONE (19:10)
[2019-05-22] MEDS ORDERED: LEVOTHYROXINE SODIUM 0.075 MG TAB ONE (19:10)
--- NOTE | 2019-05-22 20:21 | CT ---
EXAM DESCRIPTION: Abdoment/Pelvis w/o Contrast CLINICAL HISTORY: 49 years Female nv, hepatomegaly, inc bili and alk phos COMPARISON: None. TECHNIQUE: Contiguous axial images obtained through the abdomen and pelvis without IV contrast. Reformatted images obtained. This exam was performed according to our department optimization program which includes automated exposure control, adjustment of the mA and/or kv according to patient size and/or use of iterative reconstruction technique. FINDINGS: Small focus of infiltrate in the posterior right lower lobe which may reflect pneumonia. Small noncalcified nodule in the left lower lobe measuring 6 mm. Follow-up is recommended at 6-12 months and then again at 18-24 months. There is diffuse fatty infiltration of the liver. The liver is mildly enlarged measuring 18 cm. Adrenal glands, spleen and pancreas are unremarkable. No evidence of hydronephrosis. Nonobstructing renal calcifications bilaterally. The gallbladder is visualized. No aneurysmal dilatation of the aorta. Scattered small retroperitoneal lymph nodes. No bowel obstruction. The appendix is unremarkable. There is diffuse wall thickening in the colon with some inflammatory changes seen along the descending and the sigmoid suggesting possible acute colitis. Fat is noted within the wall of the bowel which suggests chronic inflammatory bowel disease. Changes of avascular necrosis and small degree of femoral collapse on the right with surrounding joint effusion. Degenerative changes in both hips. IMPRESSION: Hepatic steatosis with hepatic enlargement Fat attenuation in the wall of the colon which may reflect chronic inflammatory bowel disease with question some superimposed wall thickening in the descending and the sigmoid colon which May reflect acute infectious or inflammatory colitis Avascular necrosis of the right hip Additional chronic changes as above Electronically signed by: Marilin Mosley MD 05/22/2019 8:20 PM [facility]
[2019-05-22] MEDS ORDERED: PIPERACILLIN/TAZOBACTAM 3.375 GM in SODIUM CHLORIDE 0.9% 100ML 100 ML IVPB ONE (20:46)
[2019-05-22] MEDS ORDERED: PIPERACILLIN/TAZOBACTAM 3.375 GM VIAL IVPB ONE (20:48)
[2019-05-22] MEDS ORDERED: SODIUM CHLORIDE 0.9% 100ML 100 ML IVPB ONE (20:51)
--- NOTE | 2019-05-22 22:30 | HP ---
SUPERVISING PHYSICIAN: Richard Markham MD CHIEF COMPLAINT: Nausea and vomiting. HISTORY OF PRESENT ILLNESS: Ms. Rosado is a 49 year-old female patient who presented to the Emergency Room last night after she ran out of her medication a week ago. She is under pain management and takes her methadone and hydrocodone. She started developing some nausea and vomiting about 4 days prior to arrival to the Emergency Room. She also has a longstanding history of severe peripheral neuropathy to the lower extremities and notes the pain in her feet is unbearable. She is denying any fever or chills but noted she is not able to hold much oral intake. She is on Gabapentin for her peripheral neuropathy but has been throwing the pills up. She also has a chronic fungal and bacterial infections to the bilateral lower extremities which she has been followed in the past by Dr. Graves. She also has a significant history of hypothyroidism but has not been compliant with his medication in the last 3 to 4 months. She denies any history of hepatitis. She does have a significant history of chronic alcohol abuse. Initial laboratory work in the Emergency Room showed she had a normal white count at 7,700 without a left shift. Her chemistries showed a sodium of 130 with potassium of 2.8, BUN 6, creatinine 0.59, lactic acid 4.3, calcium 7.6 with albumin of 2.9. Liver functions showed an elevated bilirubin at 3.4 with an AST of 118, ALT normal at 32. Lipase and amylase were both normal. TSH was greater than 49. Her ethyl alcohol level was less than 5.4. She had a C-diff toxin A and B that was negative. She also had an influenza PCR of A and B that was negative. Initial vital signs in the Emergency Room showed she was tachycardiac with a heart rate of 118 to 120, low grade temperature of 99.7, blood pressure 119/85, oxygen saturation 98% on room air. Her initial radiographic studies included an abdominal x-ray and per radiology interpretation showed hepatomegaly but nonobstructive intestinal gas pattern. Given her symptomatology and labs, an abdominal/pelvic CT was completed without contrast and per radiology interpretation there was again note of hepatic steatosis with hepatic enlargement. There was note of fatty attenuation in the wall of the colon suspicious for chronic inflammatory bowel versus inflammatory colitis with some superimposed wall thickening in the descending and sigmoid colon. There was also note of avascular necrosis of the right hip. Given the patient's inability to hold any oral intake in, elevated lactic acid and symptomatology and concern for alcohol withdrawals, the patient is going to be admitted for hydration therapy and further close monitoring and reevaluation. She is admitted in stable condition. PAST MEDICAL HISTORY: 1. Chronic neck pain. 2. Chronic obstructive pulmonary disease in a chronic smoker. 3. Hypothyroidism, not compliant with medication. 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 5. Chronic pain followed by [facility] in [place]. PAST SURGICAL HISTORY: 1. Neck surgery. 2. Tonsillectomy. CURRENT MEDICATIONS: 1. Methadone 10 mg daily. 2. Levothyroxine 0.125 mg daily. 3. [place] 10/325, one every 4 hours p.r.n. 4. Gabapentin 1200 mg t.i.d. ALLERGIES: No known drug allergies. FAMILY HISTORY: Her father at age 56 from lung cancer. Her mother is healthy. She has one brother who has posttraumatic stress disorder from [place]. She has one sister who is healthy and 2 sons who are healthy. SOCIAL HISTORY: The patient is and lives in [place]. She continues to smoke approximately one pack of cigarettes per day. She drinks on a frequent basis. I am not sure how much she drinks from day to day. She notes wine and beer. She denies any illicit drug use. REVIEW OF SYSTEMS: CONSTITUTIONAL: Positive for general malaise and weakness. Negative for any fevers, chills or rigors. HEENT: Negative for sore throats, earaches, nasal congestion, headaches. vision changes. RESPIRATORY: Denies coughing, wheezing, shortness of breath. CARDIOVASCULAR: Negative for chest pain, palpitations or syncopal episodes. GASTROINTESTINAL: As noted in history of present illness. Nausea, vomiting, denies abdominal pain, constipation or diarrhea or other bowel habit changes. GENITOURINARY: Negative for dysuria, hematuria, polyuria. MUSCULOSKELETAL: Overall, general muscle stiffness. Denies joint swelling. SKIN: No reported unexplained changes. NEUROLOGIC: History of recent anxiety. Denies seizures, ataxia or other focal deficits. HEMATOLOGICAL: Denies easy bruising or unexplained bleeding, transfusion reactions. PHYSICAL EXAMINATION: VITAL SIGNS: Temperature 99.7, pulse 118, blood pressure 119/85, respirations 22, oxygen saturation 98% on room air. GENERAL: Overall, the patient is very unkept but is alert and appears to be in no acute distress. HEENT: Tympanic membranes are clear bilaterally. Oropharynx is pink with no lesions, dry mucous membranes. NECK: Supple, non-tender, full range of motion. CHEST: Lungs clear to auscultation without rhonchi, rales, or wheezes. CARDIOVASCULAR: Regular rate and rhythm without appreciable murmurs, rubs, or gallops. ABDOMEN: Soft, non-tender, positive bowel sounds. There was notable hepatosplenomegaly. No masses, no rebound non-tender, no point tenderness, no peritoneal signs. BACK: No CVA tenderness. EXTREMITIES: Notable thickening of the skin surrounding the feet with cracks through the thickened skin with some old areas of oozed blood. No obvious signs of infection. No significant edema. NEUROLOGIC: Cranial nerves II through XII are grossly intact. Facial features were symmetrical. Extraocular movements within normal limits. There is no notable nystagmus. She was alert and oriented x 3. SKIN: Warm, pink, dry with multiple areas on both upper and lower extremities of scabs from reported flea bites. RECTAL: Exam deferred. LABORATORY: CBC shows white count of 7,700 with hemoglobin of 11.1, hematocrit 32.5, platelet count at 177,000. RBC indices indicate at macrocytosis, differential showed to be without a left shift. Chemistries showed a sodium of 130, potassium 2.8, chloride 87, anion gap elevated at 18, BUN 6, creatinine 0.59, glucose 83. Lactic acid 4.3, calcium 7.6 corrected to 2.9, albumin to 8.5. Liver functions did show an elevated AST at 118, ALT 32, alkaline phosphatase 280, troponin less than 0.02. Amylase and lipase were both normal. TSH greater than 49. Urinalysis was pending. ETOH was less than 5.40. MICROBIOLOGY: C-difficile toxin A and B was negative for A and B, for antigen and toxin. Influenza A and B by PCR was negative. RADIOLOGY: Abdominal/pelvic as noted per radiology interpretation. Findings concerning for chronic inflammatory bowel disease versus acute infectious antiinflammatory colitis with some wall thickening in the descending and sigmoid colon. There was note of avascular necrosis along with hepatic steatosis with hepatic enlargement. ASSESSMENT: 1. Electrolyte imbalance to include hyponatremia, hypokalemia, hypomagnesemia. 2. Severe dehydration secondary to nausea and vomiting. 3. Persistent nausea and vomiting with concerns for possible alcohol withdrawals. 4. CT findings concerning for colitis of the descending and sigmoid colon probably contributing to her dehydration and nausea and vomiting. 5. Avascular necrosis of the right hip as noted on CT. 6. Hypothyroidism previously on supplementation but noncompliant with medication regimen with elevated TSH on admission. 7. History of osteomyelitis. 8. History of Guillain-[place] syndrome, 2012. 9. History of cervical cancer diagnosed in 1995. PLAN: Ms. Rosado is going to be placed in observation for fluid management and correction of electrolyte imbalance. She was started on antibiotic coverage for the colitis with Zosyn. She was given IV fluids as well as magnesium in the Emergency Room. We will continue with multivitamin infusion, fluids and recheck her electrolytes. I anticipate her discharge probably tomorrow or the next day. We will closely monitor her for alcohol withdrawals. At this point, the patient does not have any signs acute alcohol withdrawal. We will review her medications and resume those as needed. She will be on DVT prophylaxis per protocol. Until we can transition her to outpatient management, we will continue to monitor and treat as needed #[id number] MTDD
[2019-05-22] MEDS ORDERED: KCL 20 MEQ/NS 1,000 ML IVS PRN (22:36)
[2019-05-22] MEDS ORDERED: SODIUM CHLORIDE 0.9% (FLUSH) 10 ML SYG IV PRN (22:36)
[2019-05-22] MEDS ORDERED: PROMETHAZINE HCL INJ 25 MG in SODIUM CHLORIDE 0.9% 50ML 50 ML IVPB PRN (22:42)
[2019-05-22] MEDS ORDERED: MULTIPLE VITAMIN INJ 10 ML, THIAMINE HCL INJ 100 MG in SODIUM CHLORIDE 0.9% 1000ML 1,00... IVS SCH (23:00)
[2019-05-22] MEDS ORDERED: PIPERACILLIN/TAZOBACTAM 3.375 GM in SODIUM CHLORIDE 0.9% 100ML 100 ML IVPB SCH (23:00)
[2019-05-22] MEDS ORDERED: IV SET AND CAP CHANGE INJ INJ SCH (23:00)
[2019-05-22] MEDS ORDERED: ENOXAPARIN SODIUM 30 MG/0.3 ML SYG SUBCU ONE (23:55)
[2019-05-22] MEDS: ENOXAPARIN SODIUM 40 MG/0.4 ML SYG SUBCU SCH (23:58)
[2019-05-23] MEDS ORDERED: PIPERACILLIN/TAZOBACTAM 3.375 GM VIAL IVPB ONE ×4 (01:05→19:01)
[2019-05-23] MEDS ORDERED: SODIUM CHL 0.9% 100ML MINI-BAG 100 ML IVPB ONE (01:05)
[2019-05-23] MEDS: PIPERACILLIN/TAZOBACTAM 3.375 GM in SODIUM CHLORIDE 0.9% 100ML 100 ML IVPB SCH ×3 (01:27→17:14)
[2019-05-23] MEDS ORDERED: diphenhydrAMINE HCL 50 MG/ML VIAL IV ONE (05:30)
[2019-05-23] MEDS ORDERED: SODIUM CHLORIDE 0.9% 100ML 100 ML IVPB ONE ×3 (07:20→19:01)
[2019-05-23] MEDS ORDERED: GABAPENTIN 1200 MG PO SCH (10:00)
[2019-05-23] MEDS ORDERED: GABAPENTIN 400 MG CAP ONE (10:05)
[2019-05-23] MEDS ORDERED: SODIUM CHLORIDE 0.9% 1000ML 1,000 ML IVS ONE ×5 (10:29→21:30)
[2019-05-23] MEDS: LEVOTHYROXINE SODIUM 0.1 MG TAB PO SCH (10:42)
[2019-05-23] MEDS: LEVOTHYROXINE SODIUM 0.025 MG TAB PO SCH (10:42)
[2019-05-23] MEDS ORDERED: MULTIPLE VITAMIN 10 ML VIAL ONE (11:15)
[2019-05-23] MEDS: MULTIPLE VITAMIN INJ 10 ML, FOLIC ACID INJ 1 MG in SODIUM CHLORIDE 0.9% 1000ML 1,000 ML IVS SCH (12:49)
[2019-05-23] MEDS: GABAPENTIN 400 MG CAP PO SCH ×2 (14:36→21:03)
[2019-05-23] MEDS: HYDROcodone 5MG/APAP 325MG 1 EA TAB PO PRN (14:36)
[2019-05-23] MEDS ORDERED: MULTIPLE VITAMIN INJ 10 ML, THIAMINE HCL INJ 100 MG in SODIUM CHLORIDE 0.9% 1000ML 1,00... IVS SCH (17:00)
[2019-05-23] MEDS: ENOXAPARIN SODIUM 40 MG/0.4 ML SYG SUBCU SCH (22:31)
[2019-05-24] MEDS: PIPERACILLIN/TAZOBACTAM 3.375 GM in SODIUM CHLORIDE 0.9% 100ML 100 ML IVPB SCH ×2 (00:57→09:33)
[2019-05-24] MEDS: HYDROcodone 5MG/APAP 325MG 1 EA TAB PO PRN (02:51)
[2019-05-24] MEDS: LEVOTHYROXINE SODIUM 0.1 MG TAB PO SCH (06:12)
[2019-05-24] MEDS: LEVOTHYROXINE SODIUM 0.025 MG TAB PO SCH (06:12)
[2019-05-24] MEDS ORDERED: METHADONE HCL 10 MG TAB PO SCH (09:00)
[2019-05-24] MEDS ORDERED: PIPERACILLIN/TAZOBACTAM 3.375 GM VIAL IVPB ONE (09:02)
[2019-05-24] MEDS ORDERED: SODIUM CHLORIDE 0.9% 100ML 100 ML IVPB ONE (09:03)
[2019-05-24] MEDS: GABAPENTIN 400 MG CAP PO SCH (09:33)
[2019-05-24 09:56] VITALS: BP 120/78; TEMP 98.1; O2SAT 99
--- NOTE | 2019-05-24 10:59 | PN ---
DATE: 05/23/19 SUPERVISING PHYSICIAN: Richard Makrham MD SUBJECTIVE: The patient is not showing any signs of DTs or tremors. She has not had any abdominal pain, she is tolerating her diet but still looks dehydrated, has low output. She has been afebrile. OBJECTIVE: VITAL SIGNS: Temperature 98.6, pulse 113, blood pressure 111/78, respirations 18, oxygen saturation 98% on room air. Weight 54.4 kg. GENERAL: Patient is resting on the edge of the bed and appears to be in no acute distress. She does look unkept and not feeling well. CHEST: Lung sounds clear to auscultation. HEART: Regular rate and rhythm. ABDOMEN: Soft, non-tender, positive bowel sounds. EXTREMITIES: Notable thickening of the skin surrounding the feet with cracks through the thickened skin with some old areas of oozed blood. No obvious signs of infection. No significant edema. NEUROLOGIC: She is alert and oriented x3. SKIN: Warm, pink and dry. LABORATORY: White count 7,700, hemoglobin 11.1, hematocrit 13.5, differential shows to be without a left shift today. Platelet count 177,000. Chemistries show slightly improved sodium at 132, creatinine less than 0.47 with BUN less than 5. Calcium 6.8, corrected to 8.4 with albumin at 2.4. Bilirubin is down from 3.4 to 2.1. AST is down from 118 to 82, alkaline phosphatase has improved slightly as well to 212. Magnesium is now normalized at 2.4. Lactic acid is at 1.6. Urinalysis shows dark yellow, cloudy urine with a small amount of bilirubin, 4.0 urobilinogen and microscopic revealing no RBCs, WBCs, only 3 to 5 epithelials, 1+ bacteria, 1+ amorphous material, 1+ budding yeast. HCG urine was negative. ASSESSMENT: 1. Electrolyte imbalance to include hyponatremia, hypokalemia, hypomagnesemia, improving with fluids. 2. Severe dehydration secondary to nausea and vomiting, improving with fluids but still dry. 3. Questionable alcohol withdrawals with currently signs or symptoms of DT or tremors. 4. Probable colitis with CT findings concerning for descending and sigmoid colon inflammation contributing to dehydration and nausea and vomiting, improving with antibiotics. 5. Avascular necrosis of the right hip. 6. Hypothyroidism with elevated TSH with patient not consistent with medical treatment. . 7. Elevated liver enzymes to include bilirubin and AST likely from acute illness and exacerbated by dehydration, showing improvement. 8. Vaginal yeast infection. 9. History of osteomyelitis. 10; History of Guillain-[place] syndrome. 11. History of cervical cancer diagnosed in 1995. PLAN: We will continue antibiotic coverage and fluids. She is on Zosyn for the colitis. I have given her 2 additional boluses of saline as well as an additional liter of multivitamin with thiamine. Magnesium has normalized. Hopefully, we will be able to discharge tomorrow if she continues to be without any signs or symptoms of withdrawals from alcohol. Resume her home medications as appropriate to care. She is tolerating diet at this point and hopefully we will be able to transition her to outpatient management. Until then, we will continue to monitor and treat as needed. #[id number] [facility]
[2019-05-24] MEDS: MULTIPLE VITAMIN INJ 10 ML, FOLIC ACID INJ 1 MG in SODIUM CHLORIDE 0.9% 1000ML 1,000 ML IVS SCH (12:17)
--- NOTE | 2019-05-26 08:58 | DS ---
SUPERVISING PHYSICIAN: Servando Markham MD ADMISSION DIAGNOSIS: 1. Electrolyte imbalance to include hyponatremia, hypokalemia, hypomagnesemia. 2. Severe dehydration secondary to nausea and vomiting. 3. Persistent nausea and vomiting with concerns for possible alcohol withdrawals. 4. CT findings concerning for colitis of the descending and sigmoid colon probably contributing to her dehydration and nausea and vomiting. 5. Avascular necrosis of the right hip as noted on CT. 6. Hypothyroidism previously on supplementation but noncompliant with medication regimen with elevated TSH on admission. 7. History of osteomyelitis. 8. History of Guillain-[place] syndrome, 2013. 9. History of cervical cancer diagnosed in 1995. DISCHARGE DIAGNOSIS: 1. Electrolyte imbalance to include hyponatremia, hypokalemia, hypomagnesemia, resolved with fluids. 2. Severe dehydration secondary to nausea and vomiting, resolved with fluids and having good oral intake. 3. Alcohol withdrawals without any complications, no delirium tremens or tremors. 4. Questionable colitis with CT findings of descending colon and sigmoid colon versus inflammatory changes secondary to dehydration, nausea and vomiting, improving with antibiotics. 5. Avascular necrosis of the right hip. 6. Hypothyroidism with elevated TSH with patient not consistent with medical treatment with the patient started on levothyroxine. 7. Hepatic steatosis with the patient having a longstanding history of alcohol abuse. 8. Elevated liver enzymes to include bilirubin and AST, likely chronic from chronic alcohol abuse and fatty liver, exacerbated by acute illness and underlying dehydration, showing improvement prior to discharge. 9. Vaginal yeast infection with no complications or symptoms. 10. History of osteomyelitis. 11. History of Guillain-[place] syndrome. 12. History of cervical cancer diagnosed in 1995. REASON FOR HOSPITALIZATION: Ms. Rosado is a 49 year-old female patient who presented to the Emergency Room last night after she ran out of her medication a week ago. She is under pain management and takes her methadone and hydrocodone. She started developing some nausea and vomiting about 4 days prior to arrival to the Emergency Room. She also has a longstanding history of severe peripheral neuropathy to the lower extremities and notes the pain in her feet is unbearable. She is denying any fever or chills but noted she is not able to hold much oral intake. She is on Gabapentin for her peripheral neuropathy but has been throwing the pills up. She also has a chronic fungal and bacterial infections to the bilateral lower extremities which she has been followed in the past by Dr. Graves. She also has a significant history of hypothyroidism but has not been compliant with his medication in the last 3 to 4 months. She denies any history of hepatitis. She does have a significant history of chronic alcohol abuse. Initial laboratory work in the Emergency Room showed she had a normal white count at 7,700 without a left shift. Her chemistries showed a sodium of 130 with potassium of 2.8, BUN 6, creatinine 0.59, lactic acid 4.3, calcium 7.6 with albumin of 2.9. Liver functions showed an elevated bilirubin at 3.4 with an AST of 118, ALT normal at 32. Lipase and amylase were both normal. TSH was greater than 49. Her ethyl alcohol level was less than 5.4. She had a C-diff toxin A and B that was negative. She also had an influenza PCR of A and B that was negative. Initial vital signs in the Emergency Room showed she was tachycardiac with a heart rate of 118 to 120, low grade temperature of 99.7, blood pressure 119/85, oxygen saturation 98% on room air. Her initial radiographic studies included an abdominal x-ray and per radiology interpretation showed hepatomegaly but nonobstructive intestinal gas pattern. Given her symptomatology and labs, an abdominal/pelvic CT was completed without contrast and per radiology interpretation there was again note of hepatic steatosis with hepatic enlargement. There was note of fatty attenuation in the wall of the colon suspicious for chronic inflammatory bowel versus inflammatory colitis with some superimposed wall thickening in the descending and sigmoid colon. There was also note of avascular necrosis of the right hip. Given the patient's inability to hold any oral intake in, elevated lactic acid and symptomatology and concern for alcohol withdrawals, the patient is going to be admitted for hydration therapy and further close monitoring and reevaluation. She is admitted in stable condition. LABORATORY: White count on discharge was 7,700, hemoglobin 11.1, hematocrit 32.5, platelet count 177,000, differential without a left shift on discharge. Coagulation studies showed PT 13.0, PTT 24.1. Chemistries at discharge showed sodium 134, potassium 3.4, BUN less than 5, creatinine 0.49, calcium 7.9 but corrected to 8.4 for a 2.6 albumin. Bilirubin was 3.4 on admission, but was normalizing at 1.6 prior to discharge after fluids. AST was down to 117. ALT was normal. Alkaline phosphatase was 229. TSH was greater than 49. Urinalysis showed small bilirubin, 40 urobilinogen. Microscopic just revealed 1+ budding yeast, no white cells, no red cells and 1+ bacteria. CT was negative. Alcohol level was less than 5.4. MICROBIOLOGY: C. difficile toxin A and B negative for toxin and antigen. Influenza A by PCR was negative. RADIOLOGY: Abdominal x-ray and abdominopelvic CT. The abdominopelvic CT per radiologic interpretation showed hepatic steatosis with hepatic enlargement with fat attenuation in the wall of the colon which may reflect chronic inflammatory bowel disease with questionable superimposed wall thickening in the descending and sigmoid colon, possibly reflecting infectious or inflammatory colitis. There was note of avascular necrosis of the right hip. HOSPITAL COURSE: Ms. Rosado was admitted for dehydration and questionable colitis. She was given IV fluids very aggressively and showed good response to treatment. She was started on Zosyn for the underlying infection and showed good clinical response and was stable. It was felt she had clinically responded well enough and was was stable enough to continue with outpatient management. DISCHARGE ASSESSMENT: VITAL SIGNS: Temperature 98.1. Pulse 99. Blood pressure 120/78. Respirations 18. Saturation 98% on room air. GENERAL: Patient is resting on the edge of the bed and appears to be in no acute distress. She does look unkept and not feeling well. CHEST: Lung sounds clear to auscultation. HEART: Regular rate and rhythm. ABDOMEN: Soft, non-tender, positive bowel sounds. EXTREMITIES: Notable thickening of the skin surrounding the feet with cracks through the thickened skin with some old areas of oozed blood. No obvious signs of infection. No significant edema. NEUROLOGIC: She is alert and oriented x3. SKIN: Warm, pink and dry. PLAN: Ms. Rosado was discharged on 05/24/19 with instructions to followup with Dr. James the following week after discharge as well as her pain doctor for continued pain prescriptions. She was to resume her usual diet and encourage fluids to prevent dehydration. Activity to increase as tolerated. She was to resume all her medications from home as instructed and told to return to the Emergency Room as needed or if she had any concerning symptoms. Prescription provided on discharge included: 1. Augmentin 875 mg twice day, #20, no refills. 2. Levothyroxine 0.125 mg daily, #30, no refills. Listed home medications, although I do not think she had an quantity to take at home, included: 1. [place] 10 1 q.4h. p.r.n. 2. Methadone 10 mg daily. 3. Gabapentin 1200 mg t.i.d. which the patient voiced she did have a prescription for. DISPOSITION: The patient is discharged home. CONDITION ON DISCHARGE: Stable and improving. #[id number] [facility]
== END 2019-05-24 12:00 | disposition home or self-care (01) ==
LOC: ER 15:36 → MS 22:28
PROVIDERS: ADMIT Nurse Practitioner Family; ATTEND Nurse Practitioner Family
DX: E87.1 Hypo-osmolality and hyponatremia (principal); E87.6 Hypokalemia; E83.42 Hypomagnesemia; E86.0 Dehydration; E87.8 Other disorders of electrolyte and fluid balance, not elsewhere classified; F10.239 Alcohol dependence with withdrawal, unspecified; M87.351 Other secondary osteonecrosis, right femur; E03.9 Hypothyroidism, unspecified; K76.0 Fatty (change of) liver, not elsewhere classified; R74.8 Abnormal levels of other serum enzymes; B37.3 Candidiasis of vulva and vagina; G61.0 Guillain-Barre syndrome; K29.20 Alcoholic gastritis without bleeding; B35.3 Tinea pedis; G89.29 Other chronic pain; G62.9 Polyneuropathy, unspecified; R91.1 Solitary pulmonary nodule; J44.9 Chronic obstructive pulmonary disease, unspecified; F17.210 Nicotine dependence, cigarettes, uncomplicated; Y90.0 Blood alcohol level of less than 20 mg/100 ml; Z91.14 Patient's other noncompliance with medication regimen; Z79.891 Long term (current) use of opiate analgesic; Z79.890 Hormone replacement therapy; Z79.899 Other long term (current) drug therapy; Z85.41 Personal history of malignant neoplasm of cervix uteri; Z80.1 Family history of malignant neoplasm of trachea, bronchus and lung
CPT/HCPCS: 96361 ×2; 96366 ×2; 96367; 96365; 96375 ×2; 96376; 96372 ×2; J1200; J2060; J2543 ×6; J2550; J7030 ×5; A4216; J3411; J1650 ×2; J3475; J3480; J7050 ×6; 82553; 80053 ×3; 81025; 36415 ×7; 82150; 81001; 85025 ×2; 82550; 80320; 83690; 83735 ×2; 85730; 85610; 84443; 84484; 83880; 87324; 83605 ×2; 74019; 74176; 99285; 87502; 87449

== ENCOUNTER → 2019-06-09 | Outpatient (CLI) | payer MEDICARE, MEDICAID | LOC: GMAM 17:06 | PROVIDERS: ATTEND Family Medicine | DX: E03.9 Hypothyroidism, unspecified (principal); M87.9 Osteonecrosis, unspecified; R94.5 Abnormal results of liver function studies; E86.0 Dehydration ==

== ENCOUNTER 2019-06-12 20:35 | Inpatient (IN) | payer MEDICARE, MEDICAID ==
[2019-06-12] MEDS ORDERED: SODIUM CHLORIDE 0.9% 1000ML 1,000 ML IVS ONE (22:17)
[2019-06-12] MEDS ORDERED: SODIUM CHLORIDE 0.9% (FLUSH) 10 ML SYG IV PRN (22:17)
[2019-06-12] MEDS ORDERED: VANCOMYCIN HCL INJ 1,000 MG, VANCOMYCIN HCL INJ 250 MG in SODIUM CHLORIDE 0.9% 250ML 25... IVPB ONE (23:17)
--- NOTE | 2019-06-12 23:20 | RAD ---
EXAM: XR Left Foot Complete, 3 or More Views CLINICAL HISTORY: The patient is 49 years old and is Female; redness and swelling with pain TECHNIQUE: Frontal, lateral and oblique views of the left foot. COMPARISON: No relevant prior studies available. FINDINGS: BONES/JOINTS: Sclerosis and irregularity of the first metatarsal phalangeal joint is present. The proximal phalanx of the first digit demonstrate sclerosis and irregularity. Lucent lesion within the distal aspect of the proximal phalanx of the first digit is also noted. Cortical destruction along the base of the proximal phalanx of the first digit is present. The bones are osteopenic. No acute fracture. No dislocation. SOFT TISSUES: Extensive soft tissue swelling of the first digit is present. No radiopaque foreign body. IMPRESSION: Extensive soft tissue swelling of the first digit with associated destruction and irregularity specifically involving the first metatarsal-phalangeal joint and base of the first proximal phalanx. Findings are concerning for underlying osteomyelitis. Electronically signed by: Joy Magana MD 06/12/2019 11:18 PM [facility]
--- NOTE | 2019-06-12 23:21 | RAD ---
EXAM: XR Right Foot Complete, 3 or More Views CLINICAL HISTORY: The patient is 49 years old and is Female; redness and swelling with pain TECHNIQUE: Frontal, lateral and oblique views of the right foot. COMPARISON: No relevant prior studies available. FINDINGS: BONES/JOINTS: The bones are osteopenic. Mild degenerative change of the distal interphalangeal joint of the first digit is present. No acute fracture. No dislocation. SOFT TISSUES: Large ulceration along the plantar surface of the first digit is present. No radiopaque foreign body. IMPRESSION: Ulceration along the plantar surface of the first digit without underlying bony abnormality to suggest osteomyelitis. Electronically signed by: Joy Magana MD 06/12/2019 11:19 PM [facility]
--- NOTE | 2019-06-12 23:22 | RAD ---
EXAM: XR Right Tibia and Fibula, 2 Views CLINICAL HISTORY: The patient is 49 years old and is Female; redness and swelling with pain TECHNIQUE: Frontal and lateral views of the right tibia and fibula. COMPARISON: No relevant prior studies available. FINDINGS: BONES/JOINTS: Unremarkable. No acute fracture. No dislocation. SOFT TISSUES: Diffuse soft tissue swelling of the lower leg is present. No radiopaque foreign body. IMPRESSION: Diffuse soft tissue swelling of the lower leg is present. No underlying acute bony abnormality. Electronically signed by: Joy Magana MD 06/12/2019 11:21 PM [facility]
--- NOTE | 2019-06-12 23:22 | RAD ---
EXAM: XR Left Tibia and Fibula, 2 Views CLINICAL HISTORY: The patient is 49 years old and is Female; redness and swelling with pain TECHNIQUE: Frontal and lateral views of the left tibia and fibula. COMPARISON: No relevant prior studies available. FINDINGS: BONES/JOINTS: Unremarkable. No acute fracture. No dislocation. SOFT TISSUES: Mild soft tissue swelling about the lower leg is present. No radiopaque foreign body. IMPRESSION: Mild soft tissue swelling about the lower leg is present. No underlying acute bony abnormality. Electronically signed by: Joy Magana MD 06/12/2019 11:20 PM [facility]
[2019-06-12] MEDS ORDERED: SODIUM CHLORIDE 0.9% 250ML 250 ML ONE (23:27)
[2019-06-12] MEDS ORDERED: VANCOMYCIN HCL INJ 500 MG VIAL ONE (23:27)
[2019-06-12] MEDS ORDERED: VANCOMYCIN HCL INJ 1,000 MG VIAL IVPB ONE (23:27)
--- NOTE | 2019-06-12 23:42 | ED.PDOC ---
History of Present Illness - General Chief Complaint: Lower Extremity Injury Stated Complaint: foot/leg pain Time Seen by Provider: 06/12/19 22:17 Source: patient, RN notes reviewed, Vital Signs reviewed Exam Limitations: no limitations - History of Present Illness Allergies/Adverse Reactions: Allergies NO KNOWN ALLERGY Allergy (Verified 07/09/17 19:45) Home Medications: Ambulatory Orders Gabapentin 1,200 mg PO TID 03/25/18 HYDROcodone 10MG/APAP 325MG [Chandler 10/325] 1 ea PO Q4HR PRN 03/25/18 Methadone HCl 10 mg PO DAILY 03/25/18 Amoxicillin & Pot Clavulanate [Augmentin Tab] 875 mg PO BID #20 tab 05/24/19 Levothyroxine Sodium 0.125 mg PO DAILY #30 tab 05/24/19 Past Medical History (General) - Patient Medical History Hx Seizures: No Hx Stroke: No Hx Dementia: No Hx Asthma: No Hx of COPD: No Hx Cardiac Disorders: No Hx Congestive Heart Failure: No Hx Pacemaker: No Hx Hypertension: No Hx Thyroid Disease: Yes - Hypothyroidism Hx Diabetes: No Hx Gastroesophageal Reflux: No Hx Renal Disease: No Hx Cancer: No Hx of HIV: No Hx Hepatitis C: No Hx MRSA: No - Vaccination History Hx Tetanus, Diphtheria Vaccination: No Hx Influenza Vaccination: No Hx Pneumococcal Vaccination: No - Social History Hx Tobacco Use: Yes Hx Chewing Tobacco Use: No Hx Alcohol Use: Yes Hx Substance Use: No Hx Substance Use Treatment: No Hx Depression: No Hx Physical Abuse: No Hx Emotional Abuse: No Hx Suspected Abuse: No - Female History Patient : No Family Medical History - Family History Mother Family History: Unknown Living Status: Still Living Hx Family Asthma: No Hx Family Congestive Heart Failure: No Hx Family Hypertension: No Hx Family Stroke: No Hx Cardiac Disease: No Hx Family Diabetes: No Hx Family Cancer: Yes - melanoma Hx Family;Other: hyperthyroid Progress - Progress Progress: Differential diagnosis:, Osteomyelitis, abscess, fasciitis among others. 06/13/19 00:41 Patient with osteomyelitis and cellulitis. Plan on admission to the hospital for IV antibiotics. I discussed this with the patient and she voices understanding and agreement. Discussed this with the hospitalist, Kayy Cooper NP, who accepts the patient for admission. Luis Damon M.D. #[id number] - Results/Orders Results/Orders: 06/12/19 22:17 Sodium Chloride 0.9% (Flush) [Saline Flush Syringe] 10 ml IV PRN PRN 06/12/19 22:18 IV Care:Saline Lock per Protoc QSHIFT URINALYSIS Stat 06/12/19 22:21 BLOOD CULTURE Stat 06/12/19 22:30 EKG STAT 06/12/19 23:17 Vancomycin HCl Inj 1,000 mg Vancomycin HCl Inj 250 mg Sodium Chloride 0.9% 250Ml [NS 250ml] 250 ml IVPB ONCE Laboratory Results - last 24 hr 06/12/19 06/12/19 22:30 22:30 WBC 7.2 RBC 3.50 L Hgb 12.1 Hct 36.0 MCV 103.0 H MCH 34.5 H MCHC 33.5 RDW 17.8 H Plt Count 274 MPV 7.1 L Absolute Neuts (auto) 5.30 Absolute Lymphs (auto) 1.10 Absolute Monos (auto) 0.50 Absolute Eos (auto) 0.20 Absolute Basos (auto) 0.10 Neutrophils % 72.9 Lymphocytes % 15.7 L Monocytes % 6.9 Eosinophils % 3.3 Basophils % 1.2 Sodium 134 L Potassium 2.8 L Chloride 93 L Carbon Dioxide 28 Anion Gap 15.8 BUN < 5 L Creatinine 0.45 L BUN/Creatinine Ratio 11.1 Random Glucose 89 Serum Osmolality 264.6 L Calcium 8.5 Total Bilirubin 1.7 H Direct Bilirubin 0.7 H Indirect Bilirubin 1.0 H AST 99 H ALT 25 Alkaline Phosphatase 284 H Serum Total Protein 6.8 Albumin 2.7 L Lipase 25 EXAM: XR Left Foot Complete, 3 or More Views CLINICAL HISTORY: The patient is 49 years old and is Female; redness and swelling with pain TECHNIQUE: Frontal, lateral and oblique views of the left foot. COMPARISON: No relevant prior studies available. FINDINGS: BONES/JOINTS: Sclerosis and irregularity of the first metatarsal phalangeal joint is present. The proximal phalanx of the first digit demonstrate sclerosis and irregularity. Lucent lesion within the distal aspect of the proximal phalanx of the first digit is also noted. Cortical destruction along the base of the proximal phalanx of the first digit is present. The bones are osteopenic. No acute fracture. No dislocation. SOFT TISSUES: Extensive soft tissue swelling of the first digit is present. No radiopaque foreign body. IMPRESSION: Extensive soft tissue swelling of the first digit with associated destruction and irregularity specifically involving the first metatarsal- phalangeal joint and base of the first proximal phalanx. Findings are concerning for underlying osteomyelitis. Electronically signed by: Joy Magana MD 06/12/2019 11:18 PM EXAM R Left Tibia and Fibula, 2 Views CLINICAL HISTORY: The patient is 49 years old and is Female; redness and swelling with pain TECHNIQUE: Frontal and lateral views of the left tibia and fibula. COMPARISON: No relevant prior studies available. FINDINGS: BONES/JOINTS: Unremarkable. No acute fracture. No dislocation. SOFT TISSUES: Mild soft tissue swelling about the lower leg is present. No radiopaque foreign body. IMPRESSION: Mild soft tissue swelling about the lower leg is present. No underlying acute bony abnormality. Electronically signed by: Joy Magana MD 06/12/2019 11:20 PM EXAM: XR Right Foot Complete, 3 or More Views CLINICAL HISTORY: The patient is 49 years old and is Female; redness and swelling with pain TECHNIQUE: Frontal, lateral and oblique views of the right foot. COMPARISON: No relevant prior studies available. FINDINGS: BONES/JOINTS: The bones are osteopenic. Mild degenerative change of the distal interphalangeal joint of the first digit is present. No acute fracture. No dislocation. SOFT TISSUES: Large ulceration along the plantar surface of the first digit is present. No radiopaque foreign body. IMPRESSION: Ulceration along the plantar surface of the first digit without underlying bony abnormality to suggest osteomyelitis. Electronically signed by: Joy Magnaa MD 06/12/2019 11:19 PM EXAM: XR Right Tibia and Fibula, 2 Views CLINICAL HISTORY: The patient is 49 years old and is Female; redness and swelling with pain TECHNIQUE: Frontal and lateral views of the right tibia and fibula. COMPARISON: No relevant prior studies available. FINDINGS: BONES/JOINTS: Unremarkable. No acute fracture. No dislocation. SOFT TISSUES: Diffuse soft tissue swelling of the lower leg is present. No radiopaque foreign body. IMPRESSION: Diffuse soft tissue swelling of the lower leg is present. No underlying acute bony abnormality. Electronically signed by: Joy Magana MD 06/12/2019 11:21 PM EKG performed on 12 June 2019 at 2321 hrs.: Sinus tachycardia at 109 bpm with a short LA, normal axis deviation, no ST or T wave changes, otherwise normal EKG. No comparison EKG available. Departure - Departure Clinical Impression: Cellulitis of both lower extremities Osteomyelitis of left foot Qualifiers: Osteomyelitis type: unspecified type Qualified Code(s): M86.9 - Osteomyelitis, unspecified Time of Disposition: 01:24 Disposition: Admit Patient Condition: Fair Home Medications: Ambulatory Orders Gabapentin 1,200 mg PO TID 03/25/18 HYDROcodone 10MG/APAP 325MG [Chandler ] 1 ea PO Q4HR PRN 03/25/18 Methadone HCl 10 mg PO DAILY 03/25/18 Amoxicillin & Pot Clavulanate [Augmentin Tab] 875 mg PO BID #20 tab 05/24/19 Levothyroxine Sodium 0.125 mg PO DAILY #30 tab 05/24/19 Decision To Admit - Decistion To Admit Decision to Admit Reason: Admit from ER Decision to Admit Date: 06/13/19 Decision to Admit Time: 00:10
[2019-06-13] MEDS ORDERED: CHLORHEXIDINE GLUCONATE 4 % 15 ML UD TOP ONE (00:19)
[2019-06-13] MEDS ORDERED: diphenhydrAMINE HCL 50 MG/ML VIAL IV ONE (03:30)
[2019-06-13] MEDS ORDERED: SODIUM CHLORIDE 0.9% 1000ML 1,000 ML IVS PRN (03:42)
[2019-06-13] MEDS ORDERED: POTASSIUM CHLORIDE 20 MEQ TAB PO ONE (09:55)
[2019-06-13] MEDS ORDERED: KCL 20MEQ/WATER FOR INJ 100ML 20 MEQ in PREMIX BAG 1 BAG IVPB ONE (09:57)
[2019-06-13] MEDS ORDERED: KCL 20MEQ/WATER FOR INJ 100ML 100 ML IVPB ONE (11:25)
[2019-06-13] MEDS ORDERED: SODIUM CHLORIDE 0.9% (FLUSH) 10 ML SYG IV PRN (12:00)
[2019-06-13] MEDS ORDERED: ACETAMINOPHEN 325 MG TAB PO PRN (12:00)
[2019-06-13] MEDS ORDERED: ALBUTEROL SULFATE 2.5 MG/3 ML VIAL NEB PRN (12:00)
[2019-06-13] MEDS ORDERED: VANCOMYCIN PER PHARMACY IVPB SCH (12:00)
[2019-06-13] MEDS ORDERED: ONDANSETRON INJ 4 MG/2 ML VIAL IV PRN (12:00)
[2019-06-13] MEDS ORDERED: SODIUM CHLORIDE 0.9% 250ML 250 ML ONE (13:07)
[2019-06-13] MEDS ORDERED: VANCOMYCIN HCL INJ 1,000 MG VIAL IVPB ONE (13:07)
[2019-06-13] MEDS: IV SET AND CAP CHANGE INJ INJ SCH (13:25)
[2019-06-13] MEDS: VANCOMYCIN HCL INJ 1,000 MG in SODIUM CHLORIDE 0.9% 250ML 250 ML IVPB SCH (13:25)
[2019-06-13] MEDS: METHADONE HCL 10 MG TAB PO SCH (13:25)
[2019-06-13] MEDS: IPRATROPIUM/ALBUTEROL 3 ML VIAL INH SCH ×3 (13:51→21:00)
--- NOTE | 2019-06-13 13:52 | HP ---
SUPERVISING PHYSICIAN: Rivas Rivers MD CHIEF COMPLAINT: Lower extremity pain. HISTORY OF PRESENT ILLNESS: This is a 49-year-old female patient who was being seen in her primary care physician's office for lower extremity foot pain. Dr. James saw her in the office and felt that she needed to be seen in the Emergency Room. She was sent to the Emergency Room and several hours later, she came to the Emergency Room and her initial vital signs were temperature 96.4, heart rate 116, blood pressure 126/92, respiratory rate 100% on room air. Laboratory studies showed WBCs 7.2, hemoglobin 12.1, hematocrit 36. Sodium 134, potassium 2.8, chloride 93, BUN less than 5, creatinine 0.45, total bilirubin 1.7, direct bilirubin 0.7, indirect bilirubin 1, AST 99, alkaline phosphatase 284, albumin 2.7. Her lower extremities show that she has some ulcerations along the plantar surface of her right foot. She also has an ulceration on her right great toe. There is an ulceration to the left plantar surface along the area of the left great toe. Her x-rays on her right foot show ulceration along the plantar surface of the first digit without underlying bony abnormality to suggest osteomyelitis. Her left foot x-ray shows extensive soft tissue swelling of the first digit with associated destruction and irregularity specifically involving the first metatarsophalangeal joint and base of the first proximal phalanx. Findings are concerning for underlying osteomyelitis. Her right tibia/fibula shows diffuse soft tissue swelling of the lower leg with no underlying acute bony abnormality. Her left tibia/fibula x-ray shows mild soft tissue swelling about the lower leg present and no underlying acute bony abnormality. She was given some vancomycin and I was called for admission. After admitting to the hospital, I spoke with her primary care physician and said she had had extreme pain in that area of her lower extremity. She has been very poorly compliant and misses most of her appointments. I spoke with both Dr. Bender, general surgeon, as well as Dr. Luis Gutierrez, general surgeon, and they both declined consult for this patient due to her poor compliance. After discussing it at length with them, it was felt she would be better served if she went to a long-term facility as she will need long-term antibiotics because she does not complete those antibiotics when she is an outpatient. Her is blind and is unable to help her. She was sent down for an MRI and was unable to complete it due to leg movement. We will continue the vancomycin as well as add Zosyn. The patient was admitted to the hospital. PAST MEDICAL HISTORY: 1. Hypothyroidism. 2. Hepatic sclerosis. 3. Alcohol dependence. 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 5. Osteomyelitis. 6. Chronic pain syndrome followed by Dr. Mateus Valenzuela, pain management, [place]. PAST SURGICAL HISTORY: 1. Neck surgery. 2. Tonsillectomy. OUTPATIENT MEDICATIONS: 1. Gabapentin. 2. Methadone. 3. [place]. 4. Synthroid. 5. Doxycycline. 6. Augmentin. 7. Ivermectin. 8. Hydroxyzine. ALLERGIES: NO KNOWN DRUG ALLERGIES. SOCIAL HISTORY: She smokes cigarettes approximately one pack per day and has for many years. She drinks alcohol on a daily basis. It is unknown how much she actually drinks. She denies any illicit drug use. REVIEW OF SYSTEMS: Negative except as per history of present illness. PHYSICAL EXAMINATION: VITAL SIGNS: Temperature 97.9. Heart rate 113. Blood pressure 135/94. Respiratory rate 18 to 20. O2 saturation 98% on room air. GENERAL: This is a 49-year-old female patient who looks older than her stated age. She is sitting up in her bed. She is in no acute distress. HEENT: Normocephalic, atraumatic. Pupils are equal and reactive. Oropharynx is clear. NECK: Supple without mass. RESPIRATORY: Diminished breath sounds throughout. She does have a few scattered rhonchi. CHEST: There is equal rise and fall of the chest with inspiration and expiration. CARDIOVASCULAR: Regular rate and rhythm. At times, she is tachycardic. GASTROINTESTINAL: Abdomen is soft, nondistended, nontender. Bowel sounds are positive. EXTREMITIES: She does have ulcerations on the plantar surfaces of both feet that extend to the great toe on each foot. Her pedal pulses are very faint bilaterally. She has swelling and redness all the way up to midcalf. They are very tender to palpation. NEUROLOGIC: Awake, alert and oriented times three. Cranial nerves II-XII are grossly intact as tested. LABORATORY: Labs and films are as per history of present illness. IMPRESSION: 1. Sepsis related to osteomyelitis of the left foot. The osteomyelitis may involve the right foot as well. Her initial heart rate was 116, she had a respiratory rate of 20, her admitting temperature was 96.4. 2. Chronic obstructive pulmonary disease without signs or symptoms of acute exacerbation. 3. Elevated liver function tests, chronic in origin. 4. Hypokalemia. 5. History of Guillain [place] syndrome. 6. Chronic pain syndrome. 7. Tobacco abuse. 8. ETOH abuse. 9. Poor medical compliance. PLAN: The patient has been admitted to the hospital. She has refused her MRI because she will not stop moving and does want to have medication for that. After speaking with both Dr. Gutierrez and Dr. Bender, I feel her best interest is to get a PICC line started to continue her on vancomycin per pharmacy protocol, add Zosyn and we will do a referral to a long-term facility such as [facility] in [place]. I think she will need surgery at some point, but I know she will also need long-term IV antibiotics for the osteomyelitis and at home, she would be poorly compliant. She has agreed to go to an LTAC. I have started her on Lovenox for DVT prophylaxis and Protonix for ulcer prophylaxis. Her home medications will be restarted. Hopefully we can get her transferred to a long- term facility by Sunday or so. We will continue to monitor the patient closely and follow as needed. #[id number] [facility]
[2019-06-13] MEDS ORDERED: PIPERACILLIN/TAZOBACTAM 3.375 GM VIAL IVPB ONE ×2 (15:59→19:32)
[2019-06-13] MEDS ORDERED: SODIUM CHLORIDE 0.9% 100ML 100 ML IVPB ONE ×2 (15:59→19:33)
[2019-06-13] MEDS: GABAPENTIN 300 MG CAP PO SCH ×2 (16:04→20:54)
[2019-06-13] MEDS: PIPERACILLIN/TAZOBACTAM 3.375 GM in SODIUM CHLORIDE 0.9% 100ML 100 ML IVPB SCH ×2 (16:05→20:59)
[2019-06-13] MEDS: hydrOXYzine HCl 25 MG TAB PO SCH (20:54)
[2019-06-13] MEDS: SODIUM CHLORIDE 0.9% (FLUSH) 10 ML SYG IV SCH (20:55)
[2019-06-13] MEDS: NICOTINE PATCH 14 MG TD SCH (23:10)
[2019-06-14] MEDS ORDERED: FLUCONAZOLE 100 MG TAB ONE (00:17)
[2019-06-14] MEDS ORDERED: VANCOMYCIN HCL INJ 1,000 MG VIAL IVPB ONE ×3 (00:20→19:15)
[2019-06-14] MEDS ORDERED: SODIUM CHLORIDE 0.9% 250ML 250 ML ONE ×3 (00:20→19:14)
[2019-06-14] MEDS: diphenhydrAMINE HCL 50 MG/ML VIAL IV PRN ×2 (00:37→14:02)
[2019-06-14] MEDS: FLUCONAZOLE 100 MG TAB PO SCH ×2 (00:38→20:34)
[2019-06-14] MEDS: VANCOMYCIN HCL INJ 1,000 MG in SODIUM CHLORIDE 0.9% 250ML 250 ML IVPB SCH ×2 (00:39→13:45)
[2019-06-14] MEDS ORDERED: PIPERACILLIN/TAZOBACTAM 3.375 GM VIAL IVPB ONE ×2 (03:39→07:55)
[2019-06-14] MEDS ORDERED: SODIUM CHLORIDE 0.9% 100ML 100 ML IVPB ONE ×3 (03:39→11:49)
[2019-06-14] MEDS: PIPERACILLIN/TAZOBACTAM 3.375 GM in SODIUM CHLORIDE 0.9% 100ML 100 ML IVPB SCH ×2 (03:45→08:51)
[2019-06-14] MEDS: LEVOTHYROXINE SODIUM 0.025 MG TAB PO SCH (06:01)
[2019-06-14] MEDS: LEVOTHYROXINE SODIUM 0.1 MG TAB PO SCH (06:01)
[2019-06-14] MEDS ORDERED: NICOTINE PATCH 14 MG TD ONE (07:55)
[2019-06-14] MEDS: METHADONE HCL 10 MG TAB PO SCH (08:49)
[2019-06-14] MEDS: hydrOXYzine HCl 25 MG TAB PO SCH ×2 (08:49→20:34)
[2019-06-14] MEDS: GABAPENTIN 300 MG CAP PO SCH ×3 (08:50→20:34)
[2019-06-14] MEDS: NICOTINE PATCH 14 MG TD SCH (08:50)
[2019-06-14] MEDS: SODIUM CHLORIDE 0.9% (FLUSH) 10 ML SYG IV SCH ×2 (08:50→20:34)
[2019-06-14] MEDS: IPRATROPIUM/ALBUTEROL 3 ML VIAL INH SCH ×3 (08:58→19:02)
[2019-06-14] MEDS ORDERED: CEFEPIME 2 GM VIAL ONE ×2 (11:48→19:15)
[2019-06-14] MEDS: CEFEPIME 2 GM in SODIUM CHL 0.9% 50ML MIN-BAG+ 50 ML IVPB SCH ×2 (12:33→23:10)
[2019-06-14] MEDS: HYDROcodone 10MG/APAP 325MG 1 EA TAB PO PRN (14:02)
[2019-06-14] MEDS ORDERED: IPRATROPIUM/ALBUTEROL 3 ML VIAL NEB PRN (16:49)
[2019-06-14] MEDS ORDERED: SODIUM CHL 0.9% 50ML MIN-BAG+ 50 ML IVPB ONE (19:14)
--- NOTE | 2019-06-14 20:05 | PN ---
DATE: 06.14.19 SUPERVISING PHYSICIAN: HERIBERTO KELLOGG MD SUBJECTIVE: The patient notes her legs are not quite as tender today, don't seem to be draining nearly as bad as they were on admission. I did discuss with her the plan of care, MRI at [facility], however, patient would like to try to see if she could qualify for [facility]. She has no further complaints. OBJECTIVE: VITAL SIGNS: She remains afebrile with temperature of 97.9, pulse 98, blood pressure 111/78, respirations 18, oxygen saturation 95% on room air. GENERAL: The patient is resting comfortably, does not appear to be in any acute distress. CHEST: Clear to auscultation. HEART: Regular rate and rhythm. ABDOMEN: Soft, non-tender, positive bowel sound. EXTREMITIES: No significant change in the extremities. Still shows ulcerations to both feet that extend to the great toe on each foot. Pulses remain very faint but palpable. Both feet are encrusted which looks like from the serous drainage seeping from her upper extremities and the feet remain very tender without palpation. NEUROLOGICAL: She is alert and oriented x3. LABORATORY: White count remains within normal limits. Hemoglobin 9.2, hematocrit 27.7. RBC indices indicate a microcytosis with a platelet count of 226,000. Differential does show a left shift but no bands. Chemistries show sodium 134, potassium 3.2, carbon dioxide 24, BUN less than 5, creatinine 0.6, calcium 7..6 but corrected to 9.0 for 2.0 albumin. Liver functions show a total bilirubin slightly elevated at 1.3, magnesium low at 1.4, will plan to repeat tomorrow. RADIOLOGY: No additional radiographic studies today. ASSESSMENT: 1. Sepsis secondary to questionable osteomyelitis of bilateral lower extremities with more concern on the right than the left pending MRI.with the patient on parenteral antibiotics. 2. Chronic obstructive pulmonary disease without signs or symptoms of exacerbation. 3. Elevated liver function tests, returned to baseline. . 4. Hypokalemia, improving. 5. History of Guillain [place] syndrome. 6. Chronic pain syndrome. 7. Tobacco abuse. 8. ETOH abuse. 9. Poor medical compliance. PLAN: I did discuss the fact that the patient needs MRI which she refused yesterday. She is willing to have one done now on Sunday. She still needs a surgical consultation at some point but Dr. Bender and Dr. Gutierrez has deferred to have patient sent to a long-term care facility for more aggressive management. Will need a PICC line and given that she was on vancomycin and Zosyn, I will go ahead and change her to vancomycin and Cefepime pending the kidney issues. We will go ahead and talk to [facility] to see if she would quality for any inpatient stay there. Until we can transition her into a long-term care facility or rehabilitation efforts as an outpatient, we will continue to monitor and treat as needed. #[id number] [facility]
[2019-06-15] MEDS: VANCOMYCIN HCL INJ 1,000 MG in SODIUM CHLORIDE 0.9% 250ML 250 ML IVPB SCH ×2 (00:37→14:22)
[2019-06-15] MEDS: LEVOTHYROXINE SODIUM 0.025 MG TAB PO SCH (06:04)
[2019-06-15] MEDS: LEVOTHYROXINE SODIUM 0.1 MG TAB PO SCH (06:04)
[2019-06-15] MEDS ORDERED: SODIUM CHL 0.9% 50ML MIN-BAG+ 50 ML IVPB ONE ×2 (08:54→19:18)
[2019-06-15] MEDS ORDERED: CEFEPIME 2 GM VIAL ONE ×2 (08:55→19:19)
[2019-06-15] MEDS: METHADONE HCL 10 MG TAB PO SCH (09:43)
[2019-06-15] MEDS: GABAPENTIN 300 MG CAP PO SCH ×3 (09:43→20:36)
[2019-06-15] MEDS: NICOTINE PATCH 14 MG TD SCH (09:43)
[2019-06-15] MEDS: FLUCONAZOLE 100 MG TAB PO SCH (09:44)
[2019-06-15] MEDS: hydrOXYzine HCl 25 MG TAB PO SCH ×2 (09:50→20:36)
[2019-06-15] MEDS ORDERED: metroNIDAZOLE IV PREMIX 500MG 100 ML IVPB ONE ×3 (11:20→19:19)
[2019-06-15] MEDS: metroNIDAZOLE IV PREMIX 500MG 500 MG in PREMIX BAG 1 BAG IVPB SCH ×2 (11:24→18:21)
[2019-06-15] MEDS: SODIUM CHLORIDE 0.9% (FLUSH) 10 ML SYG IV SCH ×2 (11:24→20:36)
[2019-06-15] MEDS: CEFEPIME 2 GM in SODIUM CHL 0.9% 50ML MIN-BAG+ 50 ML IVPB SCH ×2 (11:25→23:13)
[2019-06-15] MEDS ORDERED: VANCOMYCIN HCL INJ 1,000 MG VIAL IVPB ONE ×2 (14:21→19:19)
[2019-06-15] MEDS ORDERED: SODIUM CHLORIDE 0.9% 250ML 250 ML ONE ×2 (14:21→19:17)
[2019-06-15] MEDS: HYDROcodone 10MG/APAP 325MG 1 EA TAB PO PRN ×2 (14:46→20:39)
--- NOTE | 2019-06-15 18:30 | PN ---
DATE: 06/15/19 SUPERVISING PHYSICIAN: HERIBERTO KELLOGG MD SUBJECTIVE: The patient is doing about the same today. We are waiting on [facility]. We did add antibiotic coverage at Dr. Graves's request with Flagyl, Cefepime and vancomycin. She has not had any complaints of shortness of breath, chest pain or abdominal pains. OBJECTIVE: VITAL SIGNS: She remains afebrile with temperature of 98.2, blood pressure 118/62, respirations 16, oxygen saturation 98% on room air. Weight is 58.4 kg. GENERAL: The patient is resting comfortably, does not appear to be in any acute distress. CHEST: Clear to auscultation. HEART: Regular rate and rhythm. ABDOMEN: Soft, non-tender, positive bowel sound. EXTREMITIES: No significant change in the extremities. Still shows ulcerations to both feet that extend to the great toe on each foot. Pulses remain very faint but palpable. Both feet are encrusted which looks like from the serous drainage seeping from her upper extremities and the feet remain very tender without palpation. NEUROLOGICAL: She is alert and oriented x3. LABORATORY: Hemoglobin 8.2, hematocrit 24.3 which is down from admission of12.1 and 32.0. RBC indices indicated a microcytosis. Chemistries show sodium to be stable 134, potassium up a little bit at 3.5, chloride normalized at 103, BUN less than 5, creatinine 0.61. MICROBIOLOGY: Urine culture pending. Blood cultures remain negative at 24 hours. RADIOLOGY: No additional radiographic studies today. ASSESSMENT: 1. Sepsis secondary to questionable osteomyelitis of bilateral lower extremities with more concern on the right than the left pending MRI.with the patient on parenteral antibiotics. 2. Chronic obstructive pulmonary disease without signs or symptoms of exacerbation. 3. Elevated liver function tests, returned to baseline. . 4. Hypokalemia, improving. 5. History of Guillain [place] syndrome. 6. Chronic pain syndrome. 7. Tobacco abuse. 8. ETOH abuse. 9. Poor medical compliance. PLAN: Will continue antibiotic coverage with Flagyl, Cefepime and vancomycin. Will await studies on Sunday to include bilateral lower extremity studies to rule out DVT as well as MRI of the lower extremities, feet and ankle. Hopefully, she can transfer to [facility] or LTAC. Until the, we will continue to monitor and treat as needed. [facility][id number] [facility]
[2019-06-15] MEDS: diphenhydrAMINE HCL 50 MG/ML VIAL IV PRN (20:38)
[2019-06-16] MEDS: VANCOMYCIN HCL INJ 1,000 MG in SODIUM CHLORIDE 0.9% 250ML 250 ML IVPB SCH ×2 (00:46→12:08)
[2019-06-16] MEDS: metroNIDAZOLE IV PREMIX 500MG 500 MG in PREMIX BAG 1 BAG IVPB SCH ×2 (02:46→09:28)
[2019-06-16] MEDS: LEVOTHYROXINE SODIUM 0.1 MG TAB PO SCH (05:30)
[2019-06-16] MEDS: HYDROcodone 10MG/APAP 325MG 1 EA TAB PO PRN (05:30)
[2019-06-16] MEDS: LEVOTHYROXINE SODIUM 0.025 MG TAB PO SCH (05:30)
[2019-06-16 06:05] VITALS: O2SAT 99
[2019-06-16] MEDS ORDERED: metroNIDAZOLE IV PREMIX 500MG 100 ML IVPB ONE (07:35)
[2019-06-16] MEDS: NICOTINE PATCH 14 MG TD SCH (08:16)
[2019-06-16] MEDS: GABAPENTIN 300 MG CAP PO SCH (08:16)
[2019-06-16] MEDS: FLUCONAZOLE 100 MG TAB PO SCH (08:16)
[2019-06-16] MEDS: hydrOXYzine HCl 25 MG TAB PO SCH (08:16)
[2019-06-16] MEDS: METHADONE HCL 10 MG TAB PO SCH (08:16)
[2019-06-16] MEDS: SODIUM CHLORIDE 0.9% (FLUSH) 10 ML SYG IV SCH (08:17)
[2019-06-16] MEDS ORDERED: POTASSIUM CHLORIDE 20 MEQ TAB PO ONE (09:03)
[2019-06-16] MEDS ORDERED: SODIUM CHL 0.9% 50ML MIN-BAG+ 50 ML IVPB ONE (10:42)
[2019-06-16] MEDS ORDERED: CEFEPIME 2 GM VIAL ONE (10:42)
[2019-06-16] MEDS: CEFEPIME 2 GM in SODIUM CHL 0.9% 50ML MIN-BAG+ 50 ML IVPB SCH (10:45)
--- NOTE | 2019-06-16 11:09 | PN ---
SUPERVISING PHYSICIAN: Servando Markham MD DATE: 06/16/19 SUBJECTIVE: The patient is feeling okay, sitting on the side of the bed. We are currently discussing placement in an LTAC versus rehab facility. She will require a total of 6 weeks of antibiotic therapy as discussed with infectious disease. OBJECTIVE: VITAL SIGNS: Blood pressure 109/68. Heart rate 102. Respiratory rate 20. Temperature 98.2. Oxygen saturation 100%. GENERAL: Ms. Rosado is a 49-year-old female in no active distress. NEUROLOGIC: Alert and oriented. LUNGS: Clear to auscultation bilaterally. CARDIOVASCULAR: Regular rate and rhythm. Normal S1, S2. ABDOMEN: Soft. Positive bowel sounds. GENITOURINARY: Deferred. EXTREMITIES: Lower extremities still exhibiting the ulcerations to the plantar aspect of the great toes. Both feet are swollen and with poor skin integrity. LABORATORY: Labs show a drop in her potassium to 3.2. Otherwise, unremarkable chemistry. Hemoglobin 9.2, hematocrit 27.9. ASSESSMENT: 1. Sepsis secondary to left great toe osteomyelitis and cellulitis of bilateral lower extremities. 2. Chronic obstructive pulmonary disease without acute exacerbation. 3. Elevated liver function tests, which are now normal. 4. Hypokalemia, improving. 5. History of Guillain [place] syndrome. 6. Chronic pain syndrome. 7. Tobacco abuse. 8. ETOH abuse. 9. Poor medical compliance. PLAN: We will continue the current antibiotic therapy with vancomycin, cefepime and Flagyl as directed by infectious disease. Recommendation is for 6 weeks of total therapy. We are trying to get placement at either [facility] or [facility]. #[id number] [facility]
[2019-06-16] MEDS ORDERED: HYDROCORTISONE 1% CREAM 30 GM TUBE TOP PRN (11:19)
[2019-06-16] MEDS: IV SET AND CAP CHANGE INJ INJ SCH (12:01)
[2019-06-16] MEDS ORDERED: SODIUM CHLORIDE 0.9% 250ML 250 ML ONE (12:02)
[2019-06-16] MEDS ORDERED: VANCOMYCIN HCL INJ 1,000 MG VIAL IVPB ONE (12:03)
[2019-06-16 14:39] VITALS: BP 115/73; TEMP 98.4
[2019-06-17] MEDS ORDERED: VANCOMYCIN HCL INJ 750 MG in SODIUM CHLORIDE 0.9% 250ML 250 ML IVPB SCH (01:00)
--- NOTE | 2019-06-17 08:35 | DS ---
SUPERVISING PHYSICIAN: Servando Markham MD ADMISSION DIAGNOSIS: 1. Sepsis secondary to osteomyelitis of the left foot. 2. Chronic obstructive pulmonary disease with no exacerbation. 3. Elevated liver function tests. 4. Hypokalemia. 5. History of Guillain[place]. 6. Chronic pain syndrome. 7. Tobacco abuse. 8. ETOH abuse. 9. Poor medical compliance. DISCHARGE DIAGNOSIS: 1. Sepsis secondary to left great osteomyelitis and cellulitis of bilateral lower extremities. 2. Chronic obstructive pulmonary disease with no exacerbation. 3. Elevated liver function tests, which have normalized. 4. Hypokalemia, improving. 5. History of Guillain[place]. 6. Chronic pain syndrome. 7. Tobacco abuse. 8. ETOH abuse. 9. Poor medical compliance. HOSPITAL COURSE: This is a 49-year-old female who presented to the Emergency Room due to lower extremity pain. She had ulcerations of bilateral feet around the area of the great toes. X-rays were consistent with osteomyelitis which was primarily on the left lower extremity. The right lower extremity did show any osteomyelitis, but did show soft tissue swelling. MRI was ordered, but the patient refused at the time because she could not stay still. Both Dr. Gutierrez and Dr. Bender had been consulted, but declined consultation due the patient's poor medical compliance. Therefore, the patient was placed on IV antibiotics for conservative measures. The patient continued to want to go smoke throughout her stay here. Dr. Graves was consulted to guide antibiotic therapy. Her recommendations were 6 weeks of vancomycin, cefepime and Flagyl. For this reason, referral to a longer term facility was initiated. [facility] in [place] as well as [facility] were sent referrals for evaluation. The patient was accepted to [facility] for IV therapy. Therefore, the patient was discharged today on 06/16/19 in stable condition, but still ill and needing IV antibiotics. Diet will be a diabetic diet. The patient will have inpatient physical therapy there and continue with IV antibiotics. Once again, she needs [address] Graves and it would be beneficial for Dr. Graves to see her while she is actually in the hospital there in [place]. She can followup with her primary care physician, Dr. James, once she is discharged from [facility]. [facility][id number] [facility]
[2019-06-20] MEDS ORDERED: IVERMECTIN 3 MG PO SCH (09:00)
== END 2019-06-16 15:55 | DRG 872 ==
LOC: ER 20:35 → OBSVTOIN 06-13 01:16 → MS 06-13 01:16
PROVIDERS: ADMIT Nurse Practitioner Acute Care; ATTEND Nurse Practitioner
DX: A41.9 Sepsis, unspecified organism (principal); M86.8X7 Other osteomyelitis, ankle and foot; L03.115 Cellulitis of right lower limb; L03.116 Cellulitis of left lower limb; J44.9 Chronic obstructive pulmonary disease, unspecified; R74.8 Abnormal levels of other serum enzymes; E78.5 Hyperlipidemia, unspecified; G89.4 Chronic pain syndrome; F17.210 Nicotine dependence, cigarettes, uncomplicated; F10.10 Alcohol abuse, uncomplicated; L97.529 Non-pressure chronic ulcer of other part of left foot with unspecified severity; L97.519 Non-pressure chronic ulcer of other part of right foot with unspecified severity; E03.9 Hypothyroidism, unspecified; Z91.19 Patient's noncompliance with other medical treatment and regimen; Z79.891 Long term (current) use of opiate analgesic; Z79.899 Other long term (current) drug therapy